=== PATIENT | female | born 1930 | race Caucasian/White ===

== ENCOUNTER 2016-10-14 12:34 | Emergency (ER) | payer OTHER, BC ==
[~2016-10-14] VITALS: Ht 160 cm; Wt 50.0 kg
[~2016-10-14 12:34] MED LIST: ATOR-22 PO; CALCTAB5 PO; METO100T14 PO; POTA20TA16 PO
[2016-10-14 12:36] VITALS: TEMP 36.3; Ht 160 cm; Wt 50.0 kg
--- NOTE | 2016-10-14 14:28 | EMERGENCY ROOM VISIT NOTE ---
History Report prepared by Eddyibe: Pam Philip Under the Supervision of: Dr. Triny Adames M.D. First contact with patient: 14:18 Chief Complaint: RESPIRATORY PROBLEMS Stated Complaint: CARDIAC PT, BREATHING PROBLEMS, SEVERE HERNIA History of Present Illness The patient is an 86 year old female who presents to the Emergency Room with complaints of worsening respiratory problems. She has a history of COPD and complains of increased shortness of breath recently. She uses Oxygen at home, but usually only at night. Her son reports she has a "severe hernia" in her abdomen that has been causing increased pain. She was told by her doctors that she may eventually need surgery for the hernia but nothing has been decided as of yet. She also complains of a headache. The patient denies any vomiting. She does have a history of an abdominal aneurysm in 2009. Source of History: patient, family (son) Onset: [employer] Position: chest Timing: worsening Associated Symptoms: + abdominal pain, + headache, No vomiting Review of Systems See HPI for pertinent positives & negatives. A total of 10 systems reviewed and were otherwise negative. Past Medical & Surgical Medical Problems: (1) Abdom Aortic Aneurysm (2) Anxiety State Nos (3) Atrial Fibrillation (4) Cellulitis (5) CHF exacerbation (6) Congestive Heart Failure Nos (7) COPD (chronic obstructive pulmonary disease) (8) Coron Atheroscler Nos Type Vessel, [place] Or Graft (9) Diverticulosis Colon (W/O Ment Of Hemorrhage) (10) Diverticulosis Colon (W/O Ment Of Hemorrhage) (11) Hypertension Nos (12) Myocardial infarction (13) Oth Atherosclerosis [place] Arteries Extremities (14) Tobacco Use Disorder (15) Tricuspid Valve Disease Surgical Problems: (1) S/P CABG x 3 (2) Tobacco Use Disorder Family History Heart disease Social History Smoking Status: Former Smoker Alcohol Use: none Drug Use: none Marital Status: Housing Status: lives alone Occupation Status: retired Current/Historical Medications Scheduled Ascorbic Acid (Vitamin C), 500 MG PO QPM Aspirin (Aspirin Ec), 81 MG PO QAM Atorvastatin (Lipitor), 20 MG PO HS Calcium (Caltrate), 600 MG PO BID Diltiazem Hcl (Diltiazem Cd), 240 MG PO DAILY Furosemide (Furosemide), 40 MG PO QAM Metoprolol Tartrate (Lopressor) (Lopressor), 100 MG PO BID Multivitamins/Minerals (Mvi With Minerals), 1 TAB PO DAILY Potassium Ext Rel (Klor-Con), 20 MEQ PO DAILY Warfarin Sodium (Coumadin), 2 MG PO UD Scheduled PRN Lorazepam (Lorazepam), 0.5 MG PO HS PRN for Sleep Allergies Coded Allergies: Penicillins (Verified Allergy, Unknown, RASH, 10/14/16) Physical Exam Vital Signs Date Time Temp Pulse Resp B/P Pulse Ox O2 Delivery O2 Flow Rate FiO2 10/14/16 18:08 70 20 140/79 92 Room Air 10/14/16 15:39 77 18 94 10/14/16 15:34 74 18 157/85 95 Room Air 10/14/16 14:24 81 22 92 10/14/16 14:23 81 10/14/16 14:17 163/92 10/14/16 14:04 80 18 154/84 98 10/14/16 12:42 96 Room Air 10/14/16 12:36 36.3 72 18 163/82 96 Room Air Physical Exam Vital signs reviewed. General: Elderly, but well-appearing 86 year old female, in no significant distress. HEENT: No scleral icterus, PERRLA, neck supple. Atraumatic. Cardiovascular: Regular rate and rhythm, no extra sounds. Pulmonary: Clear to auscultation bilaterally, normal work of breathing. Abdomen: Reducible right lower ventral hernia, soft, nontender, nondistended, positive bowel sounds. Musculoskeletal: Atraumatic, no peripheral edema. Neurologic: Patient awake alert and oriented x 3, full strength in all 4 extremities. Cranial nerves 2 through 12 grossly intact. Skin: Warm, dry, no rash Medical Decision & Procedures ER Provider Diagnostic Interpretation: This X-Ray was reviewed and interpreted by myself and the radiologist. CHEST ONE VIEW PORTABLE IMPRESSION: AP portable study. No significant change from the prior study. No acute findings. Electronically signed by: Johan Rollins M.D. 10/14/2016 2:52 PM Laboratory Results 10/14/16 14:26 Red Blood Count 4.03, Mean Corpuscular Volume 103.0, Mean Corpuscular Hemoglobin 34.2, Mean Corpuscular Hemoglobin Concent 33.3, Mean Platelet Volume 10.1, Neutrophils (%) (Auto) 74.2, Lymphocytes (%) (Auto) 12.4, Monocytes (%) ( Auto) 11.8, Eosinophils (%) (Auto) 1.1, Basophils (%) (Auto) 0.1, Neutrophils # (Auto) 6.19, Lymphocytes # (Auto) 1.03, Monocytes # (Auto) 0.98, Eosinophils # ( Auto) 0.09, Basophils # (Auto) 0.01 10/14/16 14:26 Test 10/14/16 14:09 10/14/16 14:26 10/14/16 14:41 Urine Color YELLOW Urine Appearance CLEAR (CLEAR) Urine pH 7.5 (4.5-7.5) Urine Specific [place] 1.004 (1.000-1.030) Urine Protein NEG (NEG) Urine Glucose (UA) NEG (NEG) Urine Ketones NEG (NEG) Urine Occult Blood NEG (NEG) Urine Nitrite NEG (NEG) Urine Bilirubin NEG (NEG) Urine Urobilinogen NEG (NEG) Urine Leukocyte Esterase NEG (NEG) White Blood Count 8.33 K/uL (4.8-10.8) Red Blood Count 4.03 M/uL (4.2-5.4) Hemoglobin 13.8 g/dL (12.0-16.0) Hematocrit 41.5 % (37-47) Mean Corpuscular Volume 103.0 fL (80-100) Mean Corpuscular Hemoglobin 34.2 pg (25-34) Mean Corpuscular Hemoglobin Concent 33.3 g/dl (32-36) Platelet Count 185 K/uL (130-400) Mean Platelet Volume 10.1 fL (7.4-10.4) Neutrophils (%) (Auto) 74.2 % Lymphocytes (%) (Auto) 12.4 % Monocytes (%) (Auto) 11.8 % Eosinophils (%) (Auto) 1.1 % Basophils (%) (Auto) 0.1 % Neutrophils # (Auto) 6.19 K/uL (1.4-6.5) Lymphocytes # (Auto) 1.03 K/uL (1.2-3.4) Monocytes # (Auto) 0.98 K/uL (0.11-0.59) Eosinophils # (Auto) 0.09 K/uL (0-0.5) Basophils # (Auto) 0.01 K/uL (0-0.2) RDW Standard Deviation 54.8 fL (36.4-46.3) RDW Coefficient of Variation 14.5 % (11.5-14.5) Immature Granulocyte % (Auto) 0.4 % Immature Granulocyte # (Auto) 0.03 K/uL (0.00-0.02) Prothrombin Time 21.9 SECONDS (9.0-12.0) Prothromb Time International Ratio 2.0 (0.9-1.1) Activated Partial Thromboplast Time 31.9 SECONDS (21.0-31.0) Partial Thromboplastin Ratio 1.2 Anion Gap 13.0 mmol/L (3-11) Est Creatinine Clear Calc Drug Dose 28.4 ml/min Estimated GFR () 52.3 Estimated GFR (Non- 45.1 BUN/Creatinine Ratio 24.1 (10-20) Calcium Level 9.2 mg/dl (8.5-10.1) Magnesium Level 2.3 mg/dl (1.8-2.4) Total Bilirubin 1.3 mg/dl (0.2-1) Direct Bilirubin 0.5 mg/dl (0-0.2) Aspartate Amino Transf (AST/SGOT) 25 U/L (15-37) Alanine Aminotransferase (ALT/SGPT) 26 U/L (12-78) Alkaline Phosphatase 101 U/L (45-117) Total Creatine Kinase 43 U/L (26-192) Creatine Kinase MB 1.8 ng/ml (0.5-3.6) Creatine Kinase MB Ratio 4.2 (0-3.0) Total Protein 7.8 gm/dl (6.4-8.2) Albumin 3.9 gm/dl (3.4-5.0) Bedside Troponin I 0.020 ng/ml (0-0.045) JP-Qjh-U-Type Natriuretic Peptide 3526 pg/ml (0-1800) Laboratory results per my review. Medications Administered Medications (Trade) Dose Ordered Sig/Arjun Route Start Time Stop Time Status Last Admin Dose Admin Acetaminophen (Tylenol Tab) 650 mg NOW STAT PO 10/14/16 15:36 10/14/16 15:37 DC 10/14/16 16:13 650 MG Furosemide (Lasix Inj) 40 mg NOW STAT IV 10/14/16 17:19 10/14/16 17:21 DC 10/14/16 17:45 40 MG ECG Indication: SOB/dyspnea Rate (beats per minute): 79 Rhythm: atrial fibrillation Findings: no acute ischemic change, left axis deviation, other (inferior infarct) ED Course 1420: Past medical records reviewed. The patient was evaluated in room B9. A complete history and physical examination was performed. 1536: Acetaminophen 650 mg PO. 1719: Lasix 40 mg IV. 1800: I reevaluated the patient. She is feeling much better. I discussed her results and discharge instructions and she verbalized complete understanding and agreement. Medical Decision Differential Diagnoses: CHF, pneumonia, COPD, appendicitis, incarcerated hernia , reducible hernia, constipation and diverticulitis. This patient was evaluated and appeared to be in no significant distress. IV access was obtained and laboratory work was drawn. Chest x-ray was obtained and is negative for acute infiltrate. Patient's BNP is slightly elevated. Given her recent shortness of breath and her use of Lasix, the patient was given 40 mEq of IV Lasix. The remainder of the patient's workup is unrevealing. She complained of a slight headache and was given Tylenol with relief. Patient was also ordered a meal tray for which she did not eat much of. Patient's right lower abdominal hernia was reduced easily. Patient will follow-up with her primary care physician this week and return to the ER for worsening of symptoms or any medical concerns. Impression Primary Impression: CHF exacerbation Additional Impressions: Pulmonary vascular congestion reducible ventral hernia Scribe Attestation The scribe's documentation has been prepared under my direction and personally reviewed by me in its entirety. I confirm that the note above accurately reflects all work, treatment, procedures, and medical decision making performed by me. Departure Information Dispostion Home / Self-Care Referrals Nathaniel Gomez M.D. (PCP) Patient Instructions My [facility] Additional Instructions Diagnosis: CHF exacerbation Continue your diuretic medications as prescribed. Use your oxygen as directed. Wear a hernia belt or supportive underwear to help prevent the hernia bulge. Follow-up with your physician this week if symptoms continue. Return to the ER for worsening of symptoms or any medical concerns. Problem Qualifiers Primary Impression: CHF exacerbation Congestive heart failure type: unspecified congestive heart failure type Qualified Codes: I50.9 - Heart failure, unspecified
[2016-10-14 14:40] LABS: BASO % 0.1 %; BASO ABS # 0.01 K/uL (0-0.2); COMPLETE YES; EOS % 1.1 %; HEMATOCRIT 41.5 % (37-47); IG% 0.4 %; LYMPH % 12.4 %; LYMPH ABS # 1.03 K/uL (1.2-3.4); MEAN CORPUSCULAR HEMOGLOBIN 34.2 pg (25-34); MEAN CORPUSCULAR HGB CONC 33.3 g/dl (32-36); MEAN PLATELET VOLUME 10.1 fL (7.4-10.4); MONO % 11.8 %; NEUT % 74.2 %; PLATELET COUNT 185 K/uL (130-400); RED BLOOD COUNT 4.03 M/uL (4.2-5.4); WHITE BLOOD COUNT 8.33 K/uL (4.8-10.8)
--- NOTE | 2016-10-14 14:53 | DIAGNOSTIC IMAGING REPORT ---
CHEST ONE VIEW PORTABLE CLINICAL HISTORY: Shortness of breath COMPARISON STUDY: 11/17/2015 FINDINGS: The heart is enlarged. There is prominence of the central pulmonary arteries unchanged the prior study. There is no failure. There is no lobar consolidation. There are platelike atelectatic changes the right lung base. Multiple loose bodies project over the right shoulder area[ IMPRESSION: AP portable study. No significant change from the prior study. No acute findings. Electronically signed by: Johan Rollins M.D. 10/14/2016 2:52 PM Dictated Date/Time: 10/14/2016 2:51 PM
[2016-10-14 14:54] LABS: MANUAL MICROSCOPIC REQUIRED? NO; REVIEW REQ? NO; URINE APPEARANCE CLEAR (CLEAR); URINE BILIRUBIN NEG (NEG); URINE COLOR YELLOW; URINE NITRITE NEG (NEG); URINE PH 7.5 (4.5-7.5); URINE SPECIFIC GRAVITY 1.004 (1.000-1.030); UROBILINOGEN NEG (NEG); ZZUR CULT IF INDIC CLEAN CATCH NO
[2016-10-14] MEDS ORDERED: DLTCD/240 PO (14:56)
[2016-10-14] MEDS ORDERED: ASPI81TA28 PO (14:56)
[2016-10-14] MEDS ORDERED: LSX40 PO (14:56)
[2016-10-14 14:57] LABS: POINT OF CARE TROPONIN I 0.02 ng/ml (0-0.045)
[2016-10-14] MEDS ORDERED: ASCO500T3 PO (14:57)
[2016-10-14 15:11] LABS: POTASSIUM 4.3 mmol/L (3.5-5.1)
[2016-10-14 15:20] LABS: MAGNESIUM 2.3 mg/dl (1.8-2.4)
[2016-10-14 15:26] LABS: BUN/CREATININE RATIO 24.1 (10-20); CALCIUM 9.2 mg/dl (8.5-10.1); CKMB/CK RATIO 4.2 (0-3.0); CREATININE 1.1 mg/dl (0.60-1.20)
[2016-10-14] MEDS ORDERED: ACETAMINOPHEN 325 MG TAB PO STA (15:36)
[2016-10-14] MEDS ORDERED: WARF2TAB PO (15:43)
[2016-10-14] MEDS ORDERED: MULT-513 PO (15:43)
[2016-10-14 16:04] LABS: PARTIAL THROMBOPLASTIN RATIO 1.2; PROTHROMBIN TIME (PATIENT) 21.9 SECONDS (9.0-12.0)
[2016-10-14] MEDS ORDERED: FUROSEMIDE 40 MG/4 ML VIAL IV STA (17:19)
[2016-10-14 18:08] VITALS: BP 140/79; PULSE 70; O2SAT 92
[2016-12-05] MEDS ORDERED: ATV5X PO (14:56)
[2017-03-10] MEDS ORDERED: CMD3 PO (13:21)
[2017-03-10] MEDS ORDERED: LSX20 PO (13:21)
[2017-03-10] MEDS ORDERED: PRD20 PO (13:22)
== END 2016-10-14 18:11 | disposition home or self-care (01) ==
LOC: C.EDB 12:35
DX: I50.9 Heart failure, unspecified (principal); R09.89 Other specified symptoms and signs involving the circulatory and respiratory systems; K43.9 Ventral hernia without obstruction or gangrene; F41.9 Anxiety disorder, unspecified; I48.91 Unspecified atrial fibrillation; J44.9 Chronic obstructive pulmonary disease, unspecified; I10 Essential (primary) hypertension; I25.2 Old myocardial infarction; Z87.891 Personal history of nicotine dependence; Z79.82 Long term (current) use of aspirin

== ENCOUNTER → 2016-11-04 | Outpatient (CLI) | payer OTHER, BC ==
[~2016-11-04] MED LIST changes: +ALL100 PO; +ALPR-411 PO; +ASCO500T3 PO; +ASPI81TA28 PO; +ATV5X PO; +CALC-393 PO; +CMD3 PO; +DLTCD/240 PO; +FURO-85 PO; +LSX20 PO; +LSX40 PO; +MULT-506 PO; +MULT-513 PO; +NTRGSL/4 UT; +PRD20 PO; +VNTHFA/IN INH; +WARF2TAB PO; +WARF3TAB PO
--- NOTE | 2016-11-04 17:00 | DIAGNOSTIC IMAGING REPORT ---
ABDOMEN FOR HERNIA CLINICAL HISTORY: Follow-up right inguinal abnormality. Inguinal hernia. COMPARISON STUDY: Right inguinal ultrasound August 29, 2015. FINDINGS: Note was made of a complex right groin abnormality which was predominantly fluid in appearance. This measures 7.1 x 2.6 x 2.7 cm. This appears to represent a complex fluid collection. There is no color flow. This does not appear to represent the finding shown on exam of August 19, 2015. A definite hernia was not identified on this exam. IMPRESSION: Complex right groin fluid collection measured partially 7.1 x 2.6 x 2.7 cm which does not appear to represent the abdomen prior ultrasound. The sonographic appearance is nonspecific. Differential considerations include a hematoma, seroma or abscess. A cystic mass is considered less likely. A hernia sac could also appear similar but is considered less likely. A contrast-enhanced CT of the pelvis to include the groin could be obtained. Electronically signed by: Neal Campos M.D. 11/04/2016 4:58 PM Dictated Date/Time: 11/04/2016 4:54 PM
== END | disposition home or self-care (01) ==
LOC: C.ULTR 16:15
PROVIDERS: ATTEND Internal Medicine
DX: K40.90 Unilateral inguinal hernia, without obstruction or gangrene, not specified as recurrent (principal)

== ENCOUNTER → 2016-11-15 | Outpatient (CLI) | payer OTHER, BC ==
--- NOTE | 2016-11-15 15:56 | DIAGNOSTIC IMAGING REPORT ---
CT SCAN OF THE ABDOMEN AND PELVIS WITHOUT CONTRAST CLINICAL HISTORY: Right inguinal hernia. Possible inguinal mass. COMPARISON STUDY: 01/06/2012 TECHNIQUE: CT scan of the abdomen and pelvis was performed from the lung bases to the proximal femurs. Images are reviewed in the axial, sagittal, and coronal planes. IV contrast was not administered for this examination. CT DOSE: 256.66 mGy.cm FINDINGS: Lower chest: The heart is enlarged. There is a small right pleural effusion. There are is a 27 mm right middle lobe opacity, possibly atelectatic. Liver: There are multiple hepatic cysts including a 7 cm right lobe cyst containing partially calcified septations. Gallbladder: Unremarkable. Spleen: Normal in size and attenuation. Pancreas: No intrinsic pancreatic masses are visualized. Adrenal glands: There are bilateral adrenal gland nodules unchanged the prior study Kidneys: In addition to bilateral renal cysts, there is a 2 cm exophytic right renal mass which exceeds water attenuation and is therefore indeterminate. There is left-sided perinephric stranding. There is a cortical hyperdensity within the left kidney possibly representing a hyperdense cyst. Bowel: There is extensive colonic diverticulosis. There are no acute peridiverticular inflammatory changes. There are no transition zones indicate bowel obstruction. The appendix appears normal. Peritoneum: There is no intraperitoneal free air or abdominal ascites. Vasculature: There are postsurgical changes of an aorto iliac stent graft. There is been interval decrease in the size of the upper [place] abdominal aorta which measures 33 mm. Adenopathy: None. Pelvic viscera: The bladder, and pelvic viscera are unremarkable. Skeletal structures: There is a 7 x 3 x 3 cm right inguinal mass, likely representing a distended iliopsoas bursa. There is also a right hip joint effusion. 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 IMPRESSION: 1. Complex 7 x 3 x 3 cm right inguinal mass, likely representing a distended iliopsoas bursa. There is an associated right hip joint effusion. 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 If further evaluation as deemed clinically necessary, an MRI would be considered the test of choice 2. No evidence of bowel obstruction. No evidence of free air 3. Extensive colonic diverticulosis. No evidence of acute peridiverticular inflammatory change 4. Cardiomegaly and coronary artery calcifications 5. Stable bilateral adrenal masses 6. Small right pleural effusion 7. 26 mm right middle lobe opacity possibly atelectatic 8. Multiple renal lesions including an indeterminate 2 cm exophytic right renal mass. If further evaluation is desired, a dedicated renal CT scan would be considered the test of choice 9. Stable hepatic hypodense lesions. Electronically signed by: Johan Rollins M.D. 11/15/2016 3:55 PM Dictated Date/Time: 11/15/2016 3:44 PM
== END | disposition home or self-care (01) ==
LOC: C.CTS 13:18
PROVIDERS: ATTEND Internal Medicine
DX: K40.90 Unilateral inguinal hernia, without obstruction or gangrene, not specified as recurrent (principal); M25.451 Effusion, right hip; M87.851 Other osteonecrosis, right femur; K57.30 Diverticulosis of large intestine without perforation or abscess without bleeding; I51.7 Cardiomegaly; I25.10 Atherosclerotic heart disease of native coronary artery without angina pectoris; E27.9 Disorder of adrenal gland, unspecified; R91.8 Other nonspecific abnormal finding of lung field; N28.9 Disorder of kidney and ureter, unspecified; K76.9 Liver disease, unspecified

== ENCOUNTER 2016-12-05 15:58 | Inpatient (IN) | payer OTHER, BC ==
[~2016-12-05] VITALS: Ht 157.5 cm; Wt 51.3 kg
[~2016-12-05 15:58] MED LIST changes: -ALL100 PO; -ALPR-411 PO; -CALC-393 PO; -CMD3 PO; -FURO-85 PO; -LSX20 PO; -MULT-506 PO; -NTRGSL/4 UT; -PRD20 PO; -VNTHFA/IN INH; -WARF3TAB PO
[2016-12-05] MEDS ORDERED: CALC-393 PO (18:16)
--- NOTE | 2016-12-05 18:53 | DIAGNOSTIC IMAGING REPORT ---
CHEST ONE VIEW PORTABLE CLINICAL HISTORY: Generalized Weakness mental status change COMPARISON STUDY: 10/14/2016 FINDINGS: Moderate stable cardia megaly. Lungs are considered clear. IMPRESSION: Moderate stable cardiomegaly. Otherwise no acute process Electronically signed by: Sim Lemus M.D. 12/05/2016 6:52 PM Dictated Date/Time: 12/05/2016 6:52 PM
--- NOTE | 2016-12-05 18:56 | DIAGNOSTIC IMAGING REPORT ---
LUMBAR SPINE 2 OR 3 VIEWS CLINICAL HISTORY: low back pain pain COMPARISON STUDY: 04/16/2015 FINDINGS: Arterial stents unchanged in position. Generalized degenerative change of the entire lumbar region. Mild old compression deformities of L1-L2 and L3. No evidence for an acute compression deformity. IMPRESSION: Chronic change. Postoperative vascular change. No acute process. Electronically signed by: Sim Lemus M.D. 12/05/2016 6:55 PM Dictated Date/Time: 12/05/2016 6:54 PM
[2016-12-05] MEDS ORDERED: WARF2TAB PO (18:58)
[2016-12-05 19:30] LABS: BASO % 0.2 %; BASO ABS # 0.02 K/uL (0-0.2); COMPLETE YES; EOS % 2.6 %; HEMATOCRIT 39.3 % (37-47); IG% 0.2 %; LYMPH % 14.5 %; LYMPH ABS # 1.23 K/uL (1.2-3.4); MEAN CELL VOLUME 102.1 fL (80-100); MEAN CORPUSCULAR HEMOGLOBIN 34.5 pg (25-34); MEAN CORPUSCULAR HGB CONC 33.8 g/dl (32-36); MEAN PLATELET VOLUME 10.4 fL (7.4-10.4); MONO % 12.6 %; NEUT % 69.9 %; PLATELET COUNT 201 K/uL (130-400); RED BLOOD COUNT 3.85 M/uL (4.2-5.4); WHITE BLOOD COUNT 8.51 K/uL (4.8-10.8)
[2016-12-05 19:43] LABS: URINE APPEARANCE TURBID (CLEAR); URINE BILIRUBIN NEG (NEG); URINE COLOR YELLOW; URINE NITRITE NEG (NEG); URINE PH 6.5 (4.5-7.5); UROBILINOGEN NEG (NEG); ZZUR CULT IF INDIC CLEAN CATCH YES
[2016-12-05 19:48] LABS: MANUAL MICROSCOPIC REQUIRED? NO; REVIEW REQ? YES
[2016-12-05 20:01] LABS: INR 2.4 (0.9-1.1); PARTIAL THROMBOPLASTIN RATIO 1.4; PROTHROMBIN TIME (PATIENT) 26.9 SECONDS (9.0-12.0)
[2016-12-05 20:05] LABS: BUN/CREATININE RATIO 33.1 (10-20); CALCIUM 9.7 mg/dl (8.5-10.1); CKMB/CK RATIO 2.3 (0-3.0); CREATININE 1.4 mg/dl (0.60-1.20); PHOSPHORUS 3.7 mg/dl (2.5-4.9)
[2016-12-05 20:22] LABS: POTASSIUM 4.3 mmol/L (3.5-5.1)
[2016-12-05] MEDS ORDERED: CEFTRIAXONE SOD INJ 1 GM ADDVIAL IV STA (20:26)
--- NOTE | 2016-12-05 20:28 | DIAGNOSTIC IMAGING REPORT ---
HEAD CT NONCONTRAST CT DOSE: 537.48 mGy.cm HISTORY: Mental status change dizzy on coumadin TECHNIQUE: Multiaxial CT images of the head were performed without the use of intravenous contrast. Comparison: 06/27/2011 Findings: The paranasal sinuses and mastoid air cells are clear. Moderate chronic small vessel change of periventricular and deep white matter regions. Ventricular system is midline. There is no evidence for acute intracranial hemorrhage. There is no midline shift. Impression: Age-related chronic small vessel change. No acute intracranial abnormality. Electronically signed by: Sim Lemus M.D. 12/05/2016 8:26 PM Dictated Date/Time: 12/05/2016 8:25 PM
[2016-12-05 20:32] LABS: MAGNESIUM 2.5 mg/dl (1.8-2.4)
--- NOTE | 2016-12-05 21:46 | EMERGENCY ROOM VISIT NOTE ---
History Report prepared by Lu: Nydia Balbuena Under the Supervision of: Dr. Kayden Parker M.D. First contact with patient: 17:55 Chief Complaint: SWELLING TO EXTREMITY Stated Complaint: GROIN/ABD/BACK PAIN,INOPERABLE HERNIA History of Present Illness The patient is a 86 year old female who presents to the Emergency Room with complaints of back pain that worsened earlier today. 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 The patient's son states that he visited the patient after work today and when he got there, she was hunched over in pain and crying. The patient's son also states that the patient seems to be more confused than usual. He adds that the patient has a right inguinal hernia as well, which is painful with movement. She denies any abdominal pain. She also denies any recent falls or head trauma, along with diarrhea, hematochezia, and burning with urination. The patient's son also adds that the patient's ankles are mildly edematous, which he knows because he measures them daily. The patient is on Coumadin for her history of atrial fibrillation. She was supposed to get her INR checked today, but she decided to come into the ED instead due to her pain. Source of History: patient, family (son) Onset: earlier today Position: back Timing: worsening Associated Symptoms: No abdominal pain, No diarrhea, No hematochezia, No urinary symptoms (burning with urination) Note: bilateral lower extremity edema Review of Systems See HPI for pertinent positives & negatives. A total of 10 systems reviewed and were otherwise negative. Past Medical & Surgical Medical Problems: (1) Abdom Aortic Aneurysm (2) Anxiety State Nos (3) Atrial Fibrillation (4) Cellulitis (5) CHF exacerbation (6) Congestive Heart Failure Nos (7) COPD (chronic obstructive pulmonary disease) (8) Coron Atheroscler Nos Type Vessel, [place] Or Graft (9) Diverticulosis Colon (W/O Ment Of Hemorrhage) (10) Diverticulosis Colon (W/O Ment Of Hemorrhage) (11) Hypertension Nos (12) Myocardial infarction (13) Oth Atherosclerosis [place] Arteries Extremities (14) Tobacco Use Disorder (15) Tricuspid Valve Disease Surgical Problems: (1) S/P CABG x 3 (2) Tobacco Use Disorder Family History Heart disease Social History Smoking Status: Former Smoker Alcohol Use: none Drug Use: none Marital Status: Housing Status: lives alone Occupation Status: retired Current/Historical Medications Scheduled Ascorbic Acid (Vitamin C), 500 MG PO BI Aspirin (Aspirin Ec), 81 MG PO QAM Atorvastatin (Lipitor), 20 MG PO HS Calcium Carbonate (Calcium), 600 MG PO BID Diltiazem Hcl (Diltiazem Cd), 240 MG PO DAILY Furosemide (Furosemide), 40 MG PO QAM Lorazepam (Lorazepam), 0.5 MG PO HS Metoprolol Tartrate (Lopressor) (Lopressor), 100 MG PO BID Multivitamins/Minerals (Mvi With Minerals), 1 TAB PO DAILY Potassium Ext Rel (Klor-Con), 20 MEQ PO DAILY Warfarin Sodium (Coumadin), 2 MG PO UD Warfarin Sodium (Coumadin), 4 MG PO 4XWK Allergies Coded Allergies: Penicillins (Verified Allergy, Unknown, RASH, 10/14/16) Physical Exam Vital Signs Date Time Temp Pulse Resp B/P Pulse Ox O2 Delivery O2 Flow Rate FiO2 12/05/16 23:38 78 18 152/87 95 12/05/16 22:30 70 18 142/67 95 Room Air 12/05/16 20:45 94 20 146/75 92 Room Air 12/05/16 18:59 75 20 147/81 92 Room Air 12/05/16 16:04 36.5 58 18 117/58 95 Room Air Physical Exam GENERAL: Patient is well appearing and in minimal distress. HEENT: No acute trauma, normocephalic atraumatic, mucous membranes moist, no nasal congestion, no scleral icterus. NECK: No stridor, no adenopathy, no meningismus, trachea is midline. LUNGS: No dyspnea. Clear to auscultation and equal bilaterally. No wheeze, no rhonchi. HEART: Regular rate and rhythm. No murmurs, rubs, gallops appreciated. ABDOMEN: Soft, nontender, bowel sounds positive, no masses appreciated, no peritonitis. BACK: Mild back tenderness which is mostly on the right, no midline tenderness, no CVA tenderness EXTREMITIES: Normal motion all extremities, large right inguinal hernia that is nontender and easily reducible, no cyanosis, no edema. NEUROLOGIC: Alert and oriented, no acute motor or sensory deficits, no focal weakness, cranial nerves grossly intact. SKIN: No rash, no jaundice, no diaphoresis. Medical Decision & Procedures ER Provider Diagnostic Interpretation: Radiology results and stated below per my review and radiologist interpretation: CHEST ONE VIEW PORTABLE IMPRESSION: Moderate stable cardiomegaly. Otherwise no acute process Electronically signed by: Sim Lemus M.D. 12/05/2016 6:52 PM Dictated Date/Time: 12/05/2016 6:52 PM LUMBAR SPINE 2 OR 3 VIEWS IMPRESSION: Chronic change. Postoperative vascular change. No acute process. Electronically signed by: Sim Lemus M.D. 12/05/2016 6:55 PM Dictated Date/Time: 12/05/2016 6:[address] NONCONTRAST Impression: Age-related chronic small vessel change. No acute intracranial abnormality. Electronically signed by: Sim Lemus M.D. 12/05/2016 8:26 PM Dictated Date/Time: 12/05/2016 8:25 PM Laboratory Results 12/05/16 19:15 Red Blood Count 3.85, Mean Corpuscular Volume 102.1, Mean Corpuscular Hemoglobin 34.5, Mean Corpuscular Hemoglobin Concent 33.8, Mean Platelet Volume 10.4, Neutrophils (%) (Auto) 69.9, Lymphocytes (%) (Auto) 14.5, Monocytes (%) ( Auto) 12.6, Eosinophils (%) (Auto) 2.6, Basophils (%) (Auto) 0.2, Neutrophils # (Auto) 5.95, Lymphocytes # (Auto) 1.23, Monocytes # (Auto) 1.07, Eosinophils # ( Auto) 0.22, Basophils # (Auto) 0.02 12/05/16 19:15 Test 12/05/16 18:15 12/05/16 19:15 12/05/16 19:22 Urine Color YELLOW Urine Appearance TURBID (CLEAR) Urine pH 6.5 (4.5-7.5) Urine Specific [place] 1.010 (1.000-1.030) Urine Protein 1+ (NEG) Urine Glucose (UA) NEG (NEG) Urine Ketones TRACE (NEG) Urine Occult Blood 2+ (NEG) Urine Nitrite NEG (NEG) Urine Bilirubin NEG (NEG) Urine Urobilinogen NEG (NEG) Urine Leukocyte Esterase LARGE (NEG) Urine WBC (Auto) >30 /hpf (0-5) Urine RBC (Auto) >30 /hpf (0-4) Urine Hyaline Casts (Auto) 1-5 /lpf (0-5) Urine Epithelial Cells (Auto) 10-20 /lpf (0-5) Urine Bacteria (Auto) NEG (NEG) Urine Yeast (Auto) (NONE PRSENT) White Blood Count 8.51 K/uL (4.8-10.8) Red Blood Count 3.85 M/uL (4.2-5.4) Hemoglobin 13.3 g/dL (12.0-16.0) Hematocrit 39.3 % (37-47) Mean Corpuscular Volume 102.1 fL (80-100) Mean Corpuscular Hemoglobin 34.5 pg (25-34) Mean Corpuscular Hemoglobin Concent 33.8 g/dl (32-36) Platelet Count 201 K/uL (130-400) Mean Platelet Volume 10.4 fL (7.4-10.4) Neutrophils (%) (Auto) 69.9 % Lymphocytes (%) (Auto) 14.5 % Monocytes (%) (Auto) 12.6 % Eosinophils (%) (Auto) 2.6 % Basophils (%) (Auto) 0.2 % Neutrophils # (Auto) 5.95 K/uL (1.4-6.5) Lymphocytes # (Auto) 1.23 K/uL (1.2-3.4) Monocytes # (Auto) 1.07 K/uL (0.11-0.59) Eosinophils # (Auto) 0.22 K/uL (0-0.5) Basophils # (Auto) 0.02 K/uL (0-0.2) RDW Standard Deviation 53.6 fL (36.4-46.3) RDW Coefficient of Variation 14.4 % (11.5-14.5) Immature Granulocyte % (Auto) 0.2 % Immature Granulocyte # (Auto) 0.02 K/uL (0.00-0.02) Prothrombin Time 26.9 SECONDS (9.0-12.0) Prothromb Time International Ratio 2.4 (0.9-1.1) Activated Partial Thromboplast Time 35.6 SECONDS (21.0-31.0) Partial Thromboplastin Ratio 1.4 Anion Gap 11.0 mmol/L (3-11) Est Creatinine Clear Calc Drug Dose 21.9 ml/min Estimated GFR () 39.1 Estimated GFR (Non- 33.7 BUN/Creatinine Ratio 33.1 (10-20) Calcium Level 9.7 mg/dl (8.5-10.1) Phosphorus Level 3.7 mg/dl (2.5-4.9) Magnesium Level 2.5 mg/dl (1.8-2.4) Total Bilirubin 0.9 mg/dl (0.2-1) Direct Bilirubin 0.3 mg/dl (0-0.2) Aspartate Amino Transf (AST/SGOT) 28 U/L (15-37) Alanine Aminotransferase (ALT/SGPT) 22 U/L (12-78) Alkaline Phosphatase 107 U/L (45-117) Total Creatine Kinase 56 U/L (26-192) Creatine Kinase MB 1.3 ng/ml (0.5-3.6) Creatine Kinase MB Ratio 2.3 (0-3.0) Troponin I 0.055 ng/ml (0-0.045) Total Protein 7.7 gm/dl (6.4-8.2) Albumin 3.8 gm/dl (3.4-5.0) Lipase 275 U/L (73-393) Bedside Lactic Acid Venous 1.60 mmol/L (0.90-1.70) Laboratory results as reviewed by me. Medications Administered Medications (Trade) Dose Ordered Sig/Arjun Route Start Time Stop Time Status Last Admin Dose Admin Ceftriaxone Sodium (Rocephin Inj) 1 gm NOW STAT IV 12/05/16 20:26 12/05/16 20:27 DC 12/05/16 20:42 1 GM ECG Indication: back/shoulder pain Rate (beats per minute): 71 Rhythm: atrial fibrillation Findings: no acute ischemic change, other ED Course 1757: The patient was evaluated in room A3. A complete history and physical exam was performed. 2025: Ordered Rocephin Inj 1 gm IV 2033: Upon reevaluation, the patient is resting comfortably. Discussed results and treatment plan with the patient. She verbalized understanding and agreement with the treatment plan. The patient will be evaluated for further management. 2132: Discussed the patient's case with Dr. Swapna Parker [facility] [place]. The patient will be evaluated for further treatment and disposition. Medical Decision Differential: Sepsis, Infectious (UTI/Pneumonia/Meningitis/etc), Metabolic/ Electrolyte Abnormality, Cardiac, Hepatic, Endocrine, Toxicologic, Neurologic, amongst other pathologies entertained. 86 yr old female arrives with generalized weakness, lower abdominal pain radiating to back and per son increased confusion last few days. Easily reducible hernia inguinal without evidence of incarceration nor overlying infection/erythema nor tenderness. She has UTI which likely is cause of confusion and discomfort. Old compression fractures without new findings on lumbar imaging. CXR without acute infection. CT head negative. Labs note elevated Trop with wnl just last month. Likely infectious in nature but with UTI and confusion will need to come in for further rule out. Stable and in no distress throughout most of stay. No evidence ACS on EKG. Consults Time Called: 2035 Consulting Physician: Dr. Swapna MARTINZE Returned Call: 2132 Discussed the patient's case with Dr. Swapna MARTINEZ. The patient will be evaluated for further treatment and disposition. Impression Primary Impression: UTI (urinary tract infection) Additional Impressions: Generalized weakness Elevated troponin Confusion Scribe Attestation The scribe's documentation has been prepared under my direction and personally reviewed by me in its entirety. I confirm that the note above accurately reflects all work, treatment, procedures, and medical decision making performed by me. Departure Information Dispostion Being Evaluated By Hospitalist Referrals Pro,Nathaniel Liu M.D. (PCP) Patient Instructions My [facility] Problem Qualifiers Primary Impression: UTI (urinary tract infection) Urinary tract infection type: site unspecified Hematuria presence: with hematuria Qualified Codes: N39.0 - Urinary tract infection, site not specified ; R31.9 - Hematuria, unspecified
--- NOTE | 2016-12-05 22:11 | History and Physical ---
History & Physical Date & Time of Service: Dec 05, 2016 at 22:12 Chief Complaint: Groin/Abd/Back Pain,Inoperable Hernia Primary Care Physician: Nathaniel Gomez M.D. History of Present Illness Source: patient This is an 86 y/o F who presents to the ED due to having a panic attack. Her son was not in the room to confirm this history as it does seem to be different to what was told to the ED physician. She says that she came here because she was having a panic attack. However, upon further questioning, she does report that she had some right sided back pain and right groin pain since yesterday. She denies urinary symptoms. The patient is intermittently and pleasantly confused. Denies chest pain, shortness of breath, palpitations, fevers, chills, nausea, vomiting, diarrhea, headaches, melena, hematuria. Past Medical/Surgical History Medical Problems: (1) Abdom Aortic Aneurysm Status: Resolved (2) Atrial Fibrillation Status: Resolved (3) COPD (chronic obstructive pulmonary disease) Status: Chronic (4) Myocardial infarction Status: Resolved Surgical Problems: (1) S/P CABG x 3 Status: Resolved Family History Heart disease Social History Smoking Status: Former Smoker Alcohol Use: occasionally Drug Use: none Marital Status: Housing status: lives alone Occupational Status: retired Immunizations History of Influenza Vaccine: Yes History of Tetanus Vaccine?: Yes History of Pneumococcal: Yes Pneumococcal Date: Jun 11, 2010 History of Hepatitis B Vaccine: No Multi-Drug Resistant Organisms History of MDRO: No Allergies Coded Allergies: Penicillins (Verified Allergy, Unknown, RASH, 10/14/16) Home Medications Scheduled Ascorbic Acid (Vitamin C), 500 MG PO BI Aspirin (Aspirin Ec), 81 MG PO QAM Atorvastatin (Lipitor), 20 MG PO HS Calcium Carbonate (Calcium), 600 MG PO BID Diltiazem Hcl (Diltiazem Cd), 240 MG PO DAILY Furosemide (Furosemide), 40 MG PO QAM Lorazepam (Lorazepam), 0.5 MG PO HS Metoprolol Tartrate (Lopressor) (Lopressor), 100 MG PO BID Multivitamins/Minerals (Mvi With Minerals), 1 TAB PO DAILY Potassium Ext Rel (Klor-Con), 20 MEQ PO DAILY Warfarin Sodium (Coumadin), 2 MG PO UD Warfarin Sodium (Coumadin), 4 MG PO 4XWK Review of Systems Constitutional: No chills, No fatigue, No fever, No sweats, No weakness Respiratory: No cough, No dyspnea at rest, No dyspnea on exertion, No shortness of breath, No sputum, No wheezing Cardiovascular: No chest pain Abdomen: No diarrhea, No nausea, No pain, No vomiting Musculoskeletal: + problem reported (right lower back pain) Genitourinary - Female: No dysuria, No urinary frequency, No urinary incontinence, No urinary urgency Physical Exam Vital Signs Date Time Temp Pulse Resp B/P Pulse Ox O2 Delivery O2 Flow Rate FiO2 12/05/16 20:45 94 20 146/75 92 Room Air 12/05/16 18:59 75 20 147/81 92 Room Air 12/05/16 16:04 36.5 58 18 117/58 95 Room Air General Appearance: no apparent distress Eyes: PERRL, EOMI ENT: hearing grossly normal Neck: supple, no adenopathy, thyroid normal Respiratory/Chest: lungs clear, normal breath sounds, no respiratory distress Cardiovascular: regular rate, rhythm, + pertinent finding (trace edema) Abdomen/GI: normal bowel sounds, non tender, soft Back: no CVA tenderness Extremities/Musculoskelatal: no calf tenderness 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, no motor/sensory deficits, alert, + disoriented (seems somewhat confused but is oriented to person, but not place or time) Diagnostics Laboratory Results Results Past 24 Hours Test 12/05/16 18:15 12/05/16 19:15 12/05/16 19:22 Range/Units Urine Color YELLOW Urine Appearance TURBID CLEAR Urine pH 6.5 4.5-7.5 Urine Specific [place] 1.010 1.000-1.030 Urine Protein 1+ NEG Urine Glucose (UA) NEG NEG Urine Ketones TRACE NEG Urine Occult Blood 2+ NEG Urine Nitrite NEG NEG Urine Bilirubin NEG NEG Urine Urobilinogen NEG NEG Urine Leukocyte Esterase LARGE NEG Urine WBC (Auto) >30 0-5 /hpf Urine RBC (Auto) >30 0-4 /hpf Urine Hyaline Casts (Auto) 1-5 0-5 /lpf Urine Epithelial Cells (Auto) 10-20 0-5 /lpf Urine Bacteria (Auto) NEG NEG Urine Yeast (Auto) NONE PRSENT White Blood Count 8.51 4.8-10.8 K/uL Red Blood Count 3.85 4.2-5.4 M/uL Hemoglobin 13.3 12.0-16.0 g/dL Hematocrit 39.3 37-47 % Mean Corpuscular Volume 102.1 80-100 fL Mean Corpuscular Hemoglobin 34.5 25-34 pg Mean Corpuscular Hemoglobin Concent 33.8 32-36 g/dl Platelet Count 201 130-400 K/uL Mean Platelet Volume 10.4 7.4-10.4 fL Neutrophils (%) (Auto) 69.9 % Lymphocytes (%) (Auto) 14.5 % Monocytes (%) (Auto) 12.6 % Eosinophils (%) (Auto) 2.6 % Basophils (%) (Auto) 0.2 % Neutrophils # (Auto) 5.95 1.4-6.5 K/uL Lymphocytes # (Auto) 1.23 1.2-3.4 K/uL Monocytes # (Auto) 1.07 0.11-0.59 K/uL Eosinophils # (Auto) 0.22 0-0.5 K/uL Basophils # (Auto) 0.02 0-0.2 K/uL RDW Standard Deviation 53.6 36.4-46.3 fL RDW Coefficient of Variation 14.4 11.5-14.5 % Immature Granulocyte % (Auto) 0.2 % Immature Granulocyte # (Auto) 0.02 0.00-0.02 K/uL Prothrombin Time 26.9 9.0-12.0 SECONDS Prothromb Time International Ratio 2.4 0.9-1.1 Activated Partial Thromboplast Time 35.6 21.0-31.0 SECONDS Partial Thromboplastin Ratio 1.4 Sodium Level 141 136-145 mmol/L Potassium Level 4.3 3.5-5.1 mmol/L Chloride Level 101 98-107 mmol/L Carbon Dioxide Level 28 21-32 mmol/L Anion Gap 11.0 3-11 mmol/L Blood Urea Nitrogen 46 7-18 mg/dl Creatinine 1.40 0.60-1.20 mg/dl Est Creatinine Clear Calc Drug Dose 21.9 ml/min Estimated GFR () 39.1 Estimated GFR (Non- 33.7 BUN/Creatinine Ratio 33.1 10-20 Random Glucose 96 70-99 mg/dl Calcium Level 9.7 8.5-10.1 mg/dl Phosphorus Level 3.7 2.5-4.9 mg/dl Magnesium Level 2.5 1.8-2.4 mg/dl Total Bilirubin 0.9 0.2-1 mg/dl Direct Bilirubin 0.3 0-0.2 mg/dl Aspartate Amino Transf (AST/SGOT) 28 15-37 U/L Alanine Aminotransferase (ALT/SGPT) 22 12-78 U/L Alkaline Phosphatase 107 45-117 U/L Total Creatine Kinase 56 26-192 U/L Creatine Kinase MB 1.3 0.5-3.6 ng/ml Creatine Kinase MB Ratio 2.3 0-3.0 Troponin I 0.055 0-0.045 ng/ml Total Protein 7.7 6.4-8.2 gm/dl Albumin 3.8 3.4-5.0 gm/dl Lipase 275 73-393 U/L Bedside Lactic Acid Venous 1.60 0.90-1.70 mmol/L Microbiology Results 12/05/16 Urine Culture, Received Pending Impression Assessment and Plan This is an 86 y/o F who presents with back pain, groin pain and a panic attack. Though it seems that patient might be slightly confused and possibly from her UTI. No evidence of ACS at this time. AMS likely 2/2 UTI UC culture pending Rocephin Head CT negative Elevated troponin Seems to be at Baseline and not unusual for being in AfIB- demand continue to trend x 3 patient is asymptomatic otherwise EKG with no new ST changes Will Get an Echo Afib Therapeutic, Continue Coumadin Daily INR Continue Diltiazem Diastolic CHF- compensated Continue Furosemide, Lopressor Xray with stable cardiomegaly DVT proph Coumadin VTE Prophylaxis Given or contraindicated: Warfarin (Coumadin) Assessment and Plan Attending Addendum: I have physically seen and examined this patient, have directed their medical care, have supervised the medical residents activities, and agree with the H&P as noted above, with the following changes: The patient is awake, well-developed and adequately nourished, alert and oriented 3, normocephalic and atraumatic, lying in bed and in no acute distress. HEENT--PERRL, EOMI, mucous membranes and oropharynx dry. Neck--supple, no JVD or bruits, thyroid normal, trachea midline, no adenopathy. Heart--normal S1 and S2, no extra beats, no murmurs, rubs or gallops. Lungs--clear bilaterally with good air movement, no respiratory distress, no accessory muscle use. Abdomen--normal bowel sounds and soft, nontender and nondistended, no hernias or masses, no organomegaly. Extremities--no cyanosis, clubbing or edema. There are good distal pulses b/l. Dermatologic--normal skin turgor, normal color, warm and dry, no abnormal lymph nodes, no rash. Neurologic--cranial nerves II through XII grossly intact, motor and sensory examination normal. Rheumatologic--normal range of motion, nontender, muscles and joints. Psychiatric--normal affect. Assessment and Plan: UTI/altered mental status--place on ceftriaxone 1 g IV daily, and follow urine culture and sensitivity results. Atrial fibrillation/hypertension/diastolic CHF/increased troponin--admit to the telemetry unit for serial cardiac enzymes, cardiac rhythm monitoring and a 2-D echocardiogram with Dopplers. Continue diltiazem, Lopressor, furosemide and Coumadin at current doses.
[2016-12-05] MEDS ORDERED: MAGNESIUM HYDROXIDE SUSP 30 ML UDC PO PRN (23:15)
[2016-12-05] MEDS ORDERED: ONDANSETRON INJ 2 MG/ML 2 ML VIAL IV PRN (23:15)
[2016-12-05] MEDS ORDERED: ALUMINUM/MAGNESIUM/SIMETH (MAALOX MAX) 30 ML UDC PO PRN (23:15)
[2016-12-05] MEDS ORDERED: ENOXAPARIN 40 MG/0.4 ML SYR SC SCH (23:15)
[2016-12-05] MEDS ORDERED: POLYETHYLENE (MIRALAX) 17 GM PACK PO PRN (23:15)
[2016-12-05] MEDS ORDERED: NITROGLYCERIN 0.4 MG SL PER TAB CHARGE SL PRN (23:15)
[2016-12-05 23:45] VITALS: BP 166/86; PULSE 79; TEMP 36.5; O2SAT 95; Ht 157.5 cm; Wt 51.3 kg
[2016-12-06] MEDS: SODIUM CHLORIDE 0.9% 1000ML 1,000 ML IV SCH ×2 (00:51→14:21)
[2016-12-06] MEDS ORDERED: HydrALAZINE HCL 20 MG/ML VIAL IV. PRN (02:45)
[2016-12-06 03:05] VITALS: BP 129/73; PULSE 76; TEMP 36.3; O2SAT 92
[2016-12-06 07:52] LABS: INR 2.1 (0.9-1.1); PROTHROMBIN TIME (PATIENT) 23.7 SECONDS (9.0-12.0)
[2016-12-06 07:59] LABS: BLOOD UREA NITROGEN 34 mg/dl (7-18); BUN/CREATININE RATIO 35.1 (10-20); CALCIUM 9.1 mg/dl (8.5-10.1); CARBON DIOXIDE 29 mmol/L (21-32); CHLORIDE 104 mmol/L (98-107); CREATININE 0.96 mg/dl (0.60-1.20); GLUCOSE 95 mg/dl (70-99); SODIUM 143 mmol/L (136-145)
[2016-12-06 08:02] VITALS: BP 187/88; PULSE 91; TEMP 36.7; O2SAT 90
[2016-12-06] MEDS: CEROVITE ADV FORMULA TAB PO SCH (08:04)
[2016-12-06] MEDS: DILTIAZEM HCL 240 MG CAPCR PO SCH (08:04)
[2016-12-06] MEDS: FUROSEMIDE 40 MG TAB PO SCH (08:04)
[2016-12-06] MEDS: ASPIRIN 81 MG ECTAB PO SCH (08:04)
[2016-12-06] MEDS: POTASSIUM CHLORIDE 20 MEQ TABCR PO SCH ×2 (08:05→09:44)
[2016-12-06] MEDS ORDERED: METOPROLOL TARTRATE 100 MG TAB PO SCH (09:00)
[2016-12-06] MEDS: ACETAMINOPHEN 325 MG TAB PO PRN (09:49)
--- NOTE | 2016-12-06 10:48 | Progress Note ---
Subjective Date of Service: Dec 06, 2016. Subjective Pt evaluation today including: conversation w/ patient, conversation w/ family , physical exam, chart review SOB with min. exertion (hx of copd and on home oxygen). No CP. Problem List Medical Problems: (1) Atrial fibrillation with RVR Status: Acute (2) Confusion Status: Acute (3) Elevated troponin Status: Acute (4) Elevated troponin Status: Acute (5) Generalized weakness Status: Acute (6) Lower extremity edema Status: Acute (7) Pedal edema Status: Acute (8) Pulmonary vascular congestion Status: Acute (9) UTI (urinary tract infection) Status: Acute Objective Vital Signs Date Time Temp Pulse Resp B/P Pulse Ox O2 Delivery O2 Flow Rate FiO2 12/06/16 08:02 36.7 91 16 187/88 90 Room Air 12/06/16 08:00 Nasal Cannula 4.0 12/06/16 04:00 Room Air 12/06/16 03:05 36.3 76 18 129/73 92 Room Air 12/05/16 23:45 36.5 79 20 166/86 95 Room Air 12/05/16 23:38 78 18 152/87 95 12/05/16 22:30 70 18 142/67 95 Room Air 12/05/16 20:45 94 20 146/75 92 Room Air 12/05/16 18:59 75 20 147/81 92 Room Air 12/05/16 16:04 36.5 58 18 117/58 95 Room Air Physical Exam General Appearance: WD/WN, no apparent distress Eyes: normal inspection, PERRL, EOMI ENT: normal ENT inspection Neck: supple, no adenopathy, thyroid normal, no JVD Respiratory/Chest: + decreased breath sounds, + wheezing Cardiovascular: no gallop, no JVD, no murmur, + irregularly irregular Abdomen: normal bowel sounds, non tender, soft Extremities: normal range of motion 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, alert, normal mood/affect, oriented x 3 Skin: normal color Laboratory Results Last 24 Hours Test 12/05/16 18:15 12/05/16 19:15 12/05/16 19:22 12/06/16 01:00 Urine Color YELLOW Urine Appearance TURBID Urine pH 6.5 Urine Specific [place] 1.010 Urine Protein 1+ Urine Glucose (UA) NEG Urine Ketones TRACE Urine Occult Blood 2+ Urine Nitrite NEG Urine Bilirubin NEG Urine Urobilinogen NEG Urine Leukocyte Esterase LARGE Urine WBC (Auto) >30 /hpf Urine RBC (Auto) >30 /hpf Urine Hyaline Casts (Auto) 1-5 /lpf Urine Epithelial Cells (Auto) 10-20 /lpf Urine Bacteria (Auto) NEG Urine Yeast (Auto) White Blood Count 8.51 K/uL Red Blood Count 3.85 M/uL Hemoglobin 13.3 g/dL Hematocrit 39.3 % Mean Corpuscular Volume 102.1 fL Mean Corpuscular Hemoglobin 34.5 pg Mean Corpuscular Hemoglobin Concent 33.8 g/dl Platelet Count 201 K/uL Mean Platelet Volume 10.4 fL Neutrophils (%) (Auto) 69.9 % Lymphocytes (%) (Auto) 14.5 % Monocytes (%) (Auto) 12.6 % Eosinophils (%) (Auto) 2.6 % Basophils (%) (Auto) 0.2 % Neutrophils # (Auto) 5.95 K/uL Lymphocytes # (Auto) 1.23 K/uL Monocytes # (Auto) 1.07 K/uL Eosinophils # (Auto) 0.22 K/uL Basophils # (Auto) 0.02 K/uL RDW Standard Deviation 53.6 fL RDW Coefficient of Variation 14.4 % Immature Granulocyte % (Auto) 0.2 % Immature Granulocyte # (Auto) 0.02 K/uL Prothrombin Time 26.9 SECONDS Prothromb Time International Ratio 2.4 Activated Partial Thromboplast Time 35.6 SECONDS Partial Thromboplastin Ratio 1.4 Sodium Level 141 mmol/L Potassium Level 4.3 mmol/L Chloride Level 101 mmol/L Carbon Dioxide Level 28 mmol/L Anion Gap 11.0 mmol/L Blood Urea Nitrogen 46 mg/dl Creatinine 1.40 mg/dl Est Creatinine Clear Calc Drug Dose 21.9 ml/min Estimated GFR () 39.1 Estimated GFR (Non- 33.7 BUN/Creatinine Ratio 33.1 Random Glucose 96 mg/dl Calcium Level 9.7 mg/dl Phosphorus Level 3.7 mg/dl Magnesium Level 2.5 mg/dl Total Bilirubin 0.9 mg/dl Direct Bilirubin 0.3 mg/dl Aspartate Amino Transf (AST/SGOT) 28 U/L Alanine Aminotransferase (ALT/SGPT) 22 U/L Alkaline Phosphatase 107 U/L Total Creatine Kinase 56 U/L Creatine Kinase MB 1.3 ng/ml Creatine Kinase MB Ratio 2.3 Troponin I 0.055 ng/ml 0.077 ng/ml Total Protein 7.7 gm/dl Albumin 3.8 gm/dl Lipase 275 U/L Bedside Lactic Acid Venous 1.60 mmol/L Test 12/06/16 06:54 12/06/16 08:48 Prothrombin Time 23.7 SECONDS Prothromb Time International Ratio 2.1 Sodium Level 143 mmol/L Potassium Level mmol/L 3.5 mmol/L Chloride Level 104 mmol/L Carbon Dioxide Level 29 mmol/L Anion Gap 10.0 mmol/L Blood Urea Nitrogen 34 mg/dl Creatinine 0.96 mg/dl Est Creatinine Clear Calc Drug Dose 32.2 ml/min Estimated GFR () 61.6 Estimated GFR (Non- 53.2 BUN/Creatinine Ratio 35.1 Random Glucose 95 mg/dl Calcium Level 9.1 mg/dl Troponin I 0.096 ng/ml Assessment and Plan AMS likely 2/2 UTI Rocephin can be stopped. Urine cx is neg. Head CT negative Elevated troponin, Hx of CAD s/p CABG. Seems to be at Baseline and not unusual for being in AfIB- demand continue to trend x 3 patient is asymptomatic otherwise EKG with no new ST changes Will Get an Echo Afib Therapeutic, Continue Coumadin Daily INR Continue Diltiazem Diastolic CHF- compensated Continue Furosemide, Lopressor Xray with stable cardiomegaly DVT proph Coumadin
[2016-12-06] MEDS ORDERED: NURSING VERBAL MED ORDER ONE (11:15)
[2016-12-06] MEDS ORDERED: ALPRAZOLAM 0.5 MG TAB PO SCH (11:30)
[2016-12-06 11:43] VITALS: BP 107/74; PULSE 69; TEMP 36.2; O2SAT 100
--- NOTE | 2016-12-06 12:15 | ECHOCARDIOGRAM REPORT ---
*NOTICE TO RECEIVING CONSTITUTION PARTY AGENCY This information is strictly Confidential and protected under [place] law. [place] law prohibits you from making any further disclosure of this information unless further disclosure is expressly permitted by the written consent of the person to whom it pertains or is authorized by law. A general authorization for the release of medical or other information is not sufficient for this purpose. Hospital accepts no responsibility if the information is made available to any other person, INCLUDING THE PATIENT. Interpretation Summary * Name: JULIANA NAVARRO Study Date: 12/06/2016 07:07 AM BP: 129/73 mmHg * Patient Location: 2T\S\E219\S\1 HR: 76 * : 1930 (M/d/yyy) Gender: Female Height: 62 in * Age: 86 yrs Ethnicity: CA Weight: 108 lb * Ordering Physician: Pamela Mueller * Referring Physician: Self, Referred * Performed By: Cheryl Velasquez RDCS * * Reason For Study: AFIB, CHF * BSA: 1.5 m2 * History: AFIB, CHF * -- Conclusions -- * There is moderate asymmetric left ventricular hypertrophy. * Left ventricular systolic function is low normal. * Diastolic dysfunction, moderate * The left atrium is severely dilated. * The right atrium is severely dilated. * Calcified coaptation of the leaflets with mild prolapse of the anterior leaflet. * There is moderate to severe tricuspid regurgitation. * Right ventricular systolic pressure is elevated at 40-50mmHg. * There is moderate mitral regurgitation. * Minimal change from an exam performed in 10/2015 Procedure Details * A complete two-dimensional transthoracic echocardiogram was performed (2D, M-mode, Doppler and color flow Doppler). Left Ventricle * The left ventricle is normal in size. * There is moderate asymmetric left ventricular hypertrophy. * Ejection Fraction = 50-55%. * Left ventricular systolic function is low normal. * Diastolic dysfunction, moderate Right Ventricle * The right ventricle is normal in size and function. Atria * The left atrium is severely dilated. * The right atrium is severely dilated. Mitral Valve * Calcified coaptation of the leaflets with mild prolapse of the anterior leaflet. * Small mobile, echodense lesion on the anterior leaflet, likely sclerosis. No change from prior study. * There is moderate mitral regurgitation. Tricuspid Valve * The tricuspid valve is not well visualized, but is grossly normal. * There is moderate to severe tricuspid regurgitation. * Right ventricular systolic pressure is elevated at 40-50mmHg. Aortic Valve * The aortic valve is normal in structure and function. * No hemodynamically significant valvular aortic stenosis. * There is no significant aortic regurgitation. Great Vessels * The aortic root and proximal ascending aorta are normal sized. Pericardium/Pleural * There is no pericardial effusion. MMode 2D Measurements and Calculations IVSd 1.2 cm IVSs 1.7 cm LVIDd 4.0 cm LVIDs 3.0 cm LVPWd 1.9 cm LVPWs 2.1 cm IVS/LVPW 0.64 FS 25.6 % EDV(Teich) 71.8 ml ESV(Teich) 35.3 ml EF(Teich) 50.9 % EDV(cubed) 66.1 ml ESV(cubed) 27.3 ml EF(cubed) 58.8 % % IVS thick 35.4 % % LVPW thick 7.5 % LV mass(C)d 255.6 grams LV mass(C)dI 173.8 grams/m\S\2 LV mass(C)s 233.0 grams LV mass(C)sI 158.4 grams/m\S\2 SV(Teich) 36.5 ml SI(Teich) 24.8 ml/m\S\2 SV(cubed) 38.8 ml SI(cubed) 26.4 ml/m\S\2 Ao root diam 2.9 cm Ao root area 6.4 cm\S\2 LA dimension 4.9 cm LA/Ao 1.7 LVAd ap4 25.3 cm\S\2 LVLd ap4 7.4 cm EDV(MOD-sp4) 73.7 ml EDV(sp4-el) 73.3 ml LVAs ap4 16.5 cm\S\2 LVLs ap4 6.7 cm ESV(MOD-sp4) 36.8 ml ESV(sp4-el) 34.7 ml EF(MOD-sp4) 50.0 % EF(sp4-el) 52.6 % LVAd ap2 23.7 cm\S\2 LVLd ap2 6.9 cm EDV(MOD-sp2) 68.1 ml EDV(sp2-el) 69.1 ml LVAs ap2 14.9 cm\S\2 LVLs ap2 5.6 cm ESV(MOD-sp2) 35.4 ml ESV(sp2-el) 33.7 ml EF(MOD-sp2) 48.0 % EF(sp2-el) 51.3 % LVLd %diff -7.73 % EDV(MOD-bp) 70.8 ml LVLs %diff -18.75 % ESV(MOD-bp) 37.7 ml EF(MOD-bp) 46.8 % SV(MOD-sp4) 36.8 ml SI(MOD-sp4) 25.0 ml/m\S\2 SV(MOD-sp2) 32.7 ml SI(MOD-sp2) 22.3 ml/m\S\2 SV(MOD-bp) 33.2 ml SI(MOD-bp) 22.6 ml/m\S\2 SV(sp4-el) 38.5 ml SI(sp4-el) 26.2 ml/m\S\2 SV(sp2-el) 35.5 ml SI(sp2-el) 24.1 ml/m\S\2 Doppler Measurements and Calculations MV E max radha 152.4 cm/sec MV A max radha 56.3 cm/sec MV E/A 2.7 MV dec time 0.14 sec Ao V2 max 150.8 cm/sec Ao max PG 9.1 mmHg Ao max PG (full) 7.2 mmHg LV V1 max PG 1.9 mmHg LV V1 max 69.2 cm/sec MR max radha 646.1 cm/sec MR max PG 167.0 mmHg TR max radha 292.6 cm/sec
[2016-12-06] MEDS ORDERED: WARFARIN SOD 4 MG TAB PO SCH (16:00)
[2016-12-06 16:09] VITALS: BP 133/72; PULSE 65; TEMP 36.8; O2SAT 95
[2016-12-06 19:12] VITALS: BP 153/72; PULSE 85; TEMP 36.2; O2SAT 96
[2016-12-06] MEDS ORDERED: CEFTRIAXONE SOD INJ 1 GM in DEXTROSE 5% ADD-VANTAGE 50ML 50 ML IV SCH (21:00)
[2016-12-06] MEDS: LORAZEPAM 0.5 MG TAB PO SCH (21:54)
[2016-12-06] MEDS: ATORVASTATIN 20 MG TAB PO SCH (21:54)
[2016-12-06] MEDS: METOPROLOL TARTRATE 50 MG TAB PO SCH (21:54)
[2016-12-07] VITALS: BP 153/67; PULSE 82; TEMP 36.3; O2SAT 99
[2016-12-07] MEDS: SODIUM CHLORIDE 0.9% 1000ML 1,000 ML IV SCH ×2 (03:07→15:13)
[2016-12-07 03:52] VITALS: BP 146/72; PULSE 88; TEMP 36.5; O2SAT 98
--- NOTE | 2016-12-07 06:19 | Clinical Documentation Query ---
MISAEL Sandoval : CLINICAL DOCUMENTATION QUERIES QUERY 1 OF 2 Patient is an 85 year old female admitted for evaluation and treatment of "AMS likely 2/2 UTI". Urine culture is pending. CT scan of the head negative for acute process. Altered mental status is non-specific and lacks the severity associated with the clinical diagnosis of encephalopathy. AMS is in fact the hallmark symptom of encephalopathy. As appropriate, consider documentation as suggested below as this directly impacts DRG assignment. Thank you. In your clinical opinion is this patient being managed for: ( x ) Metabolic encephalopathy secondary to UTI ( ) Other explanation of clinical findings (Please Explain) ( ) Unable to determine (Please Define) ( ) Need to Discuss ( ) Not Agree The medical record reflects the following clinical findings, treatment, and risk factors. Clinical Indicators: AMS in the setting of acute infection Treatment: CT scan of the head, urine culture, IV antibiotics Risk Factors: Age, infection QUERY 2 OF 2 Progress note makes notation of COPD and home oxygen use. Oxygen not appreciated on medication reconciliation but historical EMR documentation (prior H&P) does make note of continuous supplemental oxygen utilization. As appropriate, consider documentation as suggested below in order to capture this importance clinical circumstance. In your clinical opinion is this patient being managed for: (x ) Chronic hypoxic respiratory failure ( ) Other explanation of clinical findings (Please Explain) ( ) Unable to determine (Please Define) ( ) Need to Discuss ( ) Not Agree The medical record reflects the following clinical findings, treatment, and risk factors. Clinical Indicators: As above Treatment: Ongoing oxygen supplementation Risk Factors: COPD Please clarify and document your clinical opinion in the progress notes and discharge summary. Terms such as "probable", "suspected", "likely", "questionable", "possible", or "still to be ruled out" are acceptable. IF IN AGREEMENT, YOU MUST DOCUMENT ABOVE DIAGNOSTIC STATEMENT IN DAILY PROGRESS NOTES AND DISCHARGE SUMMARY. This document is not part of the patient's record. Thank You, Stalin Hayes RN [phone]
--- NOTE | 2016-12-07 06:38 | Clinical Documentation Query ---
MISAEL Sandoval : CLINICAL DOCUMENTATION QUERY Admission BUN, creatinine, and GFR were 46 mg/dl, 1.40 mg/dl, and 34 ml/min. Repeat values this yesterday morning (12/06) were 34 mg/dl, 0.96 mg/dl, and 53 ml/min. Patient has been treated with IVF and monitored with I/O, serial chemistries. In your clinical opinion is this patient being managed for: ( x ) Acute kidney failure, POA, resolved ( ) Other explanation of clinical findings (Please Explain) ( ) Unable to determine (Please Define) ( ) Need to Discuss ( ) Not Agree The medical record reflects the following clinical findings, treatment, and risk factors. Clinical Indicators: As above Treatment:Patient has been treated with IVF and monitored with I/O, serial chemistries. Risk Factors: Infection, poor intake. Please clarify and document your clinical opinion in the progress notes and discharge summary. Terms such as "probable", "suspected", "likely", "questionable", "possible", or "still to be ruled out" are acceptable. IF IN AGREEMENT, YOU MUST DOCUMENT ABOVE DIAGNOSTIC STATEMENT IN DAILY PROGRESS NOTES AND DISCHARGE SUMMARY. This document is not part of the patient's record. Thank You, Stalin Hayes, RN [phone]
[2016-12-07 07:37] VITALS: BP 163/96; PULSE 82; TEMP 36.4; O2SAT 96
[2016-12-07] MEDS: METOPROLOL TARTRATE 50 MG TAB PO SCH ×2 (07:43→20:26)
[2016-12-07] MEDS: CEROVITE ADV FORMULA TAB PO SCH (07:43)
[2016-12-07] MEDS: DILTIAZEM HCL 240 MG CAPCR PO SCH (07:44)
[2016-12-07] MEDS: FUROSEMIDE 40 MG TAB PO SCH (07:44)
[2016-12-07] MEDS: ASPIRIN 81 MG ECTAB PO SCH (07:46)
[2016-12-07 07:47] LABS: BASO % 0.1 %; BASO ABS # 0.01 K/uL (0-0.2); COMPLETE YES; EOS % 3.3 %; HEMATOCRIT 40.3 % (37-47); IG% 0.3 %; LYMPH ABS # 1.01 K/uL (1.2-3.4); MEAN CELL VOLUME 102.3 fL (80-100); MEAN CORPUSCULAR HGB CONC 32.3 g/dl (32-36); MEAN PLATELET VOLUME 9.9 fL (7.4-10.4); MONO % 10.4 %; NEUT % 74.9 %; PLATELET COUNT 173 K/uL (130-400); RED BLOOD COUNT 3.94 M/uL (4.2-5.4); WHITE BLOOD COUNT 9.21 K/uL (4.8-10.8)
[2016-12-07] MEDS: POTASSIUM CHLORIDE 20 MEQ TABCR PO SCH (07:47)
[2016-12-07] MEDS: ALPRAZOLAM 0.5 MG TAB PO PRN (07:51)
[2016-12-07 08:01] LABS: INR 2.3 (0.9-1.1); PROTHROMBIN TIME (PATIENT) 25.5 SECONDS (9.0-12.0)
--- NOTE | 2016-12-07 08:08 | Hospitalist Progress Note ---
Hospitalist Progress Note Date of Service Dec 07, 2016. Medications Medications (Trade) Dose Ordered Sig/Arjun Route Start Time Stop Time Status Last Admin Dose Admin Aspirin (Ecotrin Tab) 81 mg QAM PO 12/06/16 09:00 01/05/17 08:59 12/07/16 07:46 81 MG Atorvastatin Calcium (Lipitor Tab) 20 mg HS PO 12/06/16 21:00 01/05/17 20:59 12/06/16 21:54 20 MG Diltiazem HCl (Cardizem Cd Cap) 240 mg DAILY PO 12/06/16 09:00 01/05/17 08:59 12/07/16 07:44 240 MG Furosemide (Lasix Tab) 40 mg QAM PO 12/06/16 09:00 01/05/17 08:59 12/07/16 07:44 40 MG Lorazepam (Ativan Tab) 0.5 mg HS PO 12/06/16 21:00 01/05/17 20:59 12/06/16 21:54 0.5 MG Metoprolol Tartrate (Lopressor Tab) 100 mg BID PO 12/06/16 09:00 12/06/16 15:53 DC 12/06/16 08:04 100 MG Multivitamins/ Minerals (Multivitamin W/ Minerals Tab) 1 tab DAILY PO 12/06/16 09:00 01/05/17 08:59 12/07/16 07:43 1 TAB Potassium Chloride (Klor-Con Tab) 20 meq DAILY PO 12/06/16 09:00 01/05/17 08:59 12/07/16 07:47 20 MEQ Warfarin Sodium (Coumadin Tab) 4 mg SuTuThSa@1600 PO 12/06/16 16:00 01/05/17 15:59 12/06/16 16:14 4 MG Alprazolam (Xanax Tab) 0.5 mg TODAY@1130 PO 12/06/16 11:30 12/06/16 13:00 DC 12/06/16 11:32 0.5 MG Alprazolam (Xanax Tab) 0.5 mg Q8H PRN PO 12/06/16 11:30 01/05/17 11:29 12/07/16 07:51 0.5 MG Metoprolol Tartrate (Lopressor Tab) 50 mg BID PO 12/06/16 21:00 01/05/17 20:59 12/07/16 07:43 50 MG Objective Vital Signs Date Time Temp Pulse Resp B/P Pulse Ox O2 Delivery O2 Flow Rate FiO2 12/07/16 07:37 36.4 82 20 163/96 96 Nasal Cannula 3.5 12/07/16 04:00 Room Air 12/07/16 03:52 36.5 88 22 146/72 98 Nasal Cannula 4.0 12/07/16 00:00 36.3 82 20 153/67 99 Nasal Cannula 4.0 12/06/16 23:59 Room Air 12/06/16 20:00 Room Air 12/06/16 19:12 36.2 85 16 153/72 96 Nasal Cannula 2.0 12/06/16 16:09 36.8 65 16 133/72 95 Room Air 12/06/16 16:00 Nasal Cannula 4.0 12/06/16 12:00 Nasal Cannula 4.0 12/06/16 11:43 36.2 69 16 107/74 100 Nasal Cannula 4.0 Laboratory Results Last 24 Hours Test 12/06/16 08:48 12/06/16 13:00 12/07/16 07:16 Potassium Level 3.5 mmol/L Troponin I 0.088 ng/ml White Blood Count 9.21 K/uL Red Blood Count 3.94 M/uL Hemoglobin 13.0 g/dL Hematocrit 40.3 % Mean Corpuscular Volume 102.3 fL Mean Corpuscular Hemoglobin 33.0 pg Mean Corpuscular Hemoglobin Concent 32.3 g/dl Platelet Count 173 K/uL Mean Platelet Volume 9.9 fL Neutrophils (%) (Auto) 74.9 % Lymphocytes (%) (Auto) 11.0 % Monocytes (%) (Auto) 10.4 % Eosinophils (%) (Auto) 3.3 % Basophils (%) (Auto) 0.1 % Neutrophils # (Auto) 6.90 K/uL Lymphocytes # (Auto) 1.01 K/uL Monocytes # (Auto) 0.96 K/uL Eosinophils # (Auto) 0.30 K/uL Basophils # (Auto) 0.01 K/uL RDW Standard Deviation 53.4 fL RDW Coefficient of Variation 14.3 % Immature Granulocyte % (Auto) 0.3 % Immature Granulocyte # (Auto) 0.03 K/uL Prothrombin Time 25.5 SECONDS Prothromb Time International Ratio 2.3 Interpretation Summary * Name: JULIANA NAVARRO Study Date: 12/06/2016 07:07 AM BP: 129/73 mmHg * Patient Location: [facility]\S\E219\S\1 HR: 76 * : 1930 (M/d/yyyy) Gender: Female Height: 62 in * Age: 86 yrs Ethnicity: [place] Weight: 108 lb * Ordering Physician: Pamela Mueller * Referring Physician: Self, Referred * Performed By: Cheryl Velasquez RDCS * * Reason For Study: AFIB, CHF * BSA: 1.5 m2 * History: AFIB, CHF * -- Conclusions -- * There is moderate asymmetric left ventricular hypertrophy. * Left ventricular systolic function is low normal. * Diastolic dysfunction, moderate * The left atrium is severely dilated. * The right atrium is severely dilated. * Calcified coaptation of the leaflets with mild prolapse of the anterior leaflet. * There is moderate to severe tricuspid regurgitation. * Right ventricular systolic pressure is elevated at 40-50mmHg. * There is moderate mitral regurgitation. * Minimal change from an exam performed in 10/2015 Procedure Details * A complete two-dimensional transthoracic echocardiogram was performed (2D, M-mode, Doppler and color flow Doppler). Left Ventricle * The left ventricle is normal in size. * There is moderate asymmetric left ventricular hypertrophy. * Ejection Fraction = 50-55%. * Left ventricular systolic function is low normal. * Diastolic dysfunction, moderate Right Ventricle * The right ventricle is normal in size and function. Atria * The left atrium is severely dilated. * The right atrium is severely dilated. Mitral Valve * Calcified coaptation of the leaflets with mild prolapse of the anterior leaflet. * Small mobile, echodense lesion on the anterior leaflet, likely sclerosis. No change from prior study. * There is moderate mitral regurgitation. Tricuspid Valve * The tricuspid valve is not well visualized, but is grossly normal. * There is moderate to severe tricuspid regurgitation. * Right ventricular systolic pressure is elevated at 40-50mmHg. Aortic Valve * The aortic valve is normal in structure and function. * No hemodynamically significant valvular aortic stenosis. * There is no significant aortic regurgitation. Great Vessels * The aortic root and proximal ascending aorta are normal sized. Pericardium/Pleural * There is no pericardial effusion. Assessment and Plan AMS likely 2/2 UTI Rocephin can be stopped. Urine cx is neg. Head CT negative PT and OT. May need Rehab vs SNF at [place]. Elevated troponin, Hx of CAD s/p CABG. Seems to be at Baseline and not unusual for being in AfIB- demand continue to trend x 3 patient is asymptomatic otherwise EKG with no new ST changes Will Get an Echo Afib Therapeutic, Continue Coumadin Daily INR, INR today is 2.3 Continue Diltiazem Diastolic CHF- compensated Continue Furosemide, Lopressor Xray with stable cardiomegaly DVT proph Coumadin
[2016-12-07 08:09] LABS: BUN/CREATININE RATIO 30.4 (10-20); CALCIUM 8.7 mg/dl (8.5-10.1); CREATININE 0.83 mg/dl (0.60-1.20); POTASSIUM 3.8 mmol/L (3.5-5.1)
[2016-12-07 12:20] VITALS: BP 126/79; PULSE 65; TEMP 36.2; O2SAT 94
[2016-12-07] MEDS: ACETAMINOPHEN 325 MG TAB PO PRN (15:09)
[2016-12-07 15:24] VITALS: BP 156/81; PULSE 72; TEMP 36.2; O2SAT 99
[2016-12-07] MEDS ORDERED: WARFARIN SOD 2 MG TAB PO SCH (16:00)
[2016-12-07 19:06] VITALS: BP 133/79; PULSE 74; TEMP 36.4; O2SAT 99
[2016-12-07] MEDS: LORAZEPAM 0.5 MG TAB PO SCH (20:26)
[2016-12-07] MEDS: ATORVASTATIN 20 MG TAB PO SCH (20:27)
[2016-12-08] VITALS (8 sets, daily range): BP systolic 118–172; BP diastolic 62–95; PULSE 72–90; TEMP 36.4–36.6; O2SAT 92–98
[2016-12-08] MEDS: SODIUM CHLORIDE 0.9% 1000ML 1,000 ML IV SCH (05:04)
[2016-12-08 07:02] LABS: BASO % 0.1 %; BASO ABS # 0.01 K/uL (0-0.2); COMPLETE YES; EOS % 3.7 %; HEMATOCRIT 39.2 % (37-47); IG% 0.3 %; LYMPH % 12.9 %; LYMPH ABS # 0.97 K/uL (1.2-3.4); MEAN CELL VOLUME 102.9 fL (80-100); MEAN CORPUSCULAR HEMOGLOBIN 33.3 pg (25-34); MEAN CORPUSCULAR HGB CONC 32.4 g/dl (32-36); MEAN PLATELET VOLUME 9.7 fL (7.4-10.4); MONO % 11.3 %; NEUT % 71.7 %; PLATELET COUNT 153 K/uL (130-400); RED BLOOD COUNT 3.81 M/uL (4.2-5.4); WHITE BLOOD COUNT 7.53 K/uL (4.8-10.8)
[2016-12-08 07:12] LABS: INR 2.8 (0.9-1.1); PROTHROMBIN TIME (PATIENT) 30.8 SECONDS (9.0-12.0)
[2016-12-08 07:43] LABS: BUN/CREATININE RATIO 22.3 (10-20); CALCIUM 8.5 mg/dl (8.5-10.1); CREATININE 0.75 mg/dl (0.60-1.20); POTASSIUM 4.2 mmol/L (3.5-5.1)
[2016-12-08] MEDS: ASPIRIN 81 MG ECTAB PO SCH (08:11)
[2016-12-08] MEDS: CEROVITE ADV FORMULA TAB PO SCH (08:11)
[2016-12-08] MEDS: FUROSEMIDE 40 MG TAB PO SCH (08:11)
[2016-12-08] MEDS: METOPROLOL TARTRATE 50 MG TAB PO SCH (08:11)
[2016-12-08] MEDS: POTASSIUM CHLORIDE 20 MEQ TABCR PO SCH (08:12)
[2016-12-08] MEDS: DILTIAZEM HCL 240 MG CAPCR PO SCH (08:12)
--- NOTE | 2016-12-08 11:16 | Discharge Summary ---
Discharge Summary Date of Service Dec 08, 2016. Discharge Summary Admission Date: Dec 05, 2016 at 23:13 Discharge Date: Dec 08, 2016 Discharge Disposition: [facility] facility Principal Diagnosis: Hypoxic respiratory failure Problems/Secondary Diagnoses: COPD Mitral regurgitation Moderate to severe tricuspid regurgiation Diastolic CHF (acute on chronic) Immunizations: Have You Had Influenza Vaccine: Yes History of Tetanus Vaccine?: Yes History of Pneumococcal: Yes Pneumococcal Date: Jun 11, 2010 History of Hepatitis B Vaccine: No Procedures: Interpretation Summary * Name: JULIANA NAVARRO Study Date: 12/06/2016 07:07 AM BP: 129/73 mmHg * Patient Location: [facility]\S\E219\S\1 HR: 76 * : 1930 (M/d/yyy) Gender: Female Height: 62 in * Age: 86 yrs Ethnicity: [place] Weight: 108 lb * Ordering Physician: Pamela Mueller * Referring Physician: Self, Referred * Performed By: Cheryl Velasquez RDCS * * Reason For Study: AFIB, CHF * BSA: 1.5 m2 * History: AFIB, CHF * -- Conclusions -- * There is moderate asymmetric left ventricular hypertrophy. * Left ventricular systolic function is low normal. * Diastolic dysfunction, moderate * The left atrium is severely dilated. * The right atrium is severely dilated. * Calcified coaptation of the leaflets with mild prolapse of the anterior leaflet. * There is moderate to severe tricuspid regurgitation. * Right ventricular systolic pressure is elevated at 40-50mmHg. * There is moderate mitral regurgitation. * Minimal change from an exam performed in 10/2015 Procedure Details Medication Reconciliation Continued Medications: Ascorbic Acid (Vitamin C) 500 Mg Tab 500 MG PO BI Aspirin (Aspirin Ec) 81 Mg Tab 81 MG PO QAM Atorvastatin (Lipitor) 20 Mg Tab 20 MG PO HS for 30 Days, TAB 5 Refills Calcium Carbonate (Calcium) 600 Mg Tab 600 MG PO BID Diltiazem Hcl (Diltiazem Cd) 240 Mg Capcr 240 MG PO DAILY Furosemide (Furosemide) 40 Mg Tab 40 MG PO QAM Lorazepam (Lorazepam) 0.5 Mg Tab 0.5 MG PO HS Metoprolol Tartrate (Lopressor) (Lopressor) 100 Mg Tab 100 MG PO BID, 0 Refills Multivitamins/Minerals (Mvi With Minerals) Tab 1 TAB PO DAILY, TAB Potassium Ext Rel (Klor-Con) 20 Meq Tabcr 20 MEQ PO DAILY, 0 Refills Warfarin Sodium (Coumadin) 2 Mg Tab 2 MG PO UD, TAB MON, WED, FRI Warfarin Sodium (Coumadin) 2 Mg Tab 4 MG PO 4XWK, TAB TAKE SUN, TUES, THUR, SAT Discharge Exam Physical Exam: General Appearance: WD/WN, no apparent distress ENT: normal ENT inspection Neck: supple, no adenopathy Respiratory/Chest: no respiratory distress, + wheezing Cardiovascular: no edema, no gallop, + irregularly irregular Abdomen / GI: normal bowel sounds, non tender, soft Extremities: normal inspection, no calf tenderness 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 Her son was not in the room to confirm this history as it does seem to be different to what was told to the ED physician. She says that she came here because she was having a panic attack. However, upon further questioning, she does report that she had some right sided back pain and right groin pain since yesterday. She denies urinary symptoms. The patient is intermittently and pleasantly confused. Denies chest pain, shortness of breath, palpitations, fevers, chills, nausea, vomiting, diarrhea, headaches, melena, hematuria. AMS likely 2/2 UTI Rocephin can be stopped. Urine cx is neg. Head CT negative PT and OT. [place]hab [place] SNF [place] Elevated troponin, Hx of CAD s/p CABG. Seems to be at Baseline and not unusual for being in AfIB- demand Mild increase in troponin due to demand ischemia patient is asymptomatic otherwise EKG with no new ST changes Echo results noted. Afib Therapeutic, Continue Coumadin Daily INR, Continue Diltiazem Diastolic CHF- compensated Continue Furosemide, Lopressor Xray with stable cardiomegaly DVT proph Coumadin Total Time Spent: Greater than 30 minutes This includes examination of the patient, discharge planning, medication reconciliation, and communication with other providers. Discharge Instructions Please refer to the electronic Patient Visit Report (Discharge Instructions) for additional information. Follow-Up PCP in one to two weeks
--- NOTE | 2016-12-08 11:22 | Discharge Instructions ---
Discharge Instructions Date of Service Dec 08, 2016. Admission Reason for Admission: Elevated Troponin, Uti Discharge Discharge Diagnosis / Problem: Acute on chronic diastolic CHF Discharge Goals Goal(s): Learn about illness Activity Recommendations Activity Limitations: resume your previous activity Lifting Limitations: none Exercise/Sports Limitations: as tolerated Shower/Bathe: no limitations Driving or Machine Use: no limitations . Instructions / Follow-Up Instructions / Follow-Up Call your Primary Care doctor if any of the following symptoms or problems start or get worse: * Shortness of breath or difficulty breathing * Wake up at night short of breath * Chest pain * Cough * Swelling of your hands, feet, or legs * More fatigued or tired with your normal activity * Palpitations - sudden fast heart beats WEIGHT * Weigh yourself every morning after using the bathroom. * Use the same scale. * Wear the same amount of clothing. * Write your weight down on a chart. * Call your Primary Care doctor if you gain more than 2-3 pounds in 1-2 days. MEDICATIONS * Use this discharge instruction sheet for medication instructions. * Take your medications at the time your doctor ordered. * Do not skip a dose of your medicines. * If you miss a dose of medicine, take it as soon as possible, but DO NOT DOUBLE A DOSE. * Read your medicine information when you get home. * Know all of the side effects of your medicine. If in doubt, ask your pharmacist * Call your Primary Care doctor's office if you have any side effects. * Be sure all of your doctors know what medicine and herbs you take (including cold, flu, and herbal medicine). Take the following with you to your follow-up doctor appointments: * Weight Chart * Medication List * List of questions Do not drink excessive alcohol, beer or wine. Current Hospital Diet Patient's current hospital diet: AHA Diet (Heart Healthy) Discharge Diet Recommended Diet: AHA Diet (Heart Healthy) Fluid Restriction: 1000 ml (4 cups) Pending Studies Studies pending at discharge: no Medical Emergencies . Who to Call and When: Call 911 or go to the Emergency Room if: * If at any time you feel your situation is an emergency * You have tightness or pain in your chest that does not go away with rest or Nitroglycerin * You are very short of breath even with rest . Non-Emergent Contact Non-Emergency issues call your: Primary Care Provider . Past History Medical & Surgical History: (1) COPD (chronic obstructive pulmonary disease) (2) Elevated troponin (3) Generalized weakness (4) CHF exacerbation (5) Atrial Fibrillation . "Provider Documentation" section prepared by Venecia Vásquez. VTE Core Measure Inpt VTE Proph given/why not?: Warfarin (Coumadin)
[2016-12-08] MEDS: ALPRAZOLAM 0.5 MG TAB PO PRN (13:43)
[2017-03-10] MEDS ORDERED: CMD3 PO (13:21)
[2017-03-10] MEDS ORDERED: LSX20 PO (13:21)
[2017-03-10] MEDS ORDERED: PRD20 PO (13:22)
== END 2016-12-08 15:34 | DRG 689 ==
LOC: ENRESERVDT → ENRESERVTM → C.EDB 15:58 → C.2T 23:13
PROVIDERS: ADMIT Student in an Organized Health Care Education/Training Program; ATTEND Hospitalist
DX: N39.0 Urinary tract infection, site not specified (principal); I50.33 Acute on chronic diastolic (congestive) heart failure; J96.90 Respiratory failure, unspecified, unspecified whether with hypoxia or hypercapnia; N17.9 Acute kidney failure, unspecified; I48.91 Unspecified atrial fibrillation; J44.9 Chronic obstructive pulmonary disease, unspecified; I25.10 Atherosclerotic heart disease of native coronary artery without angina pectoris; M54.9 Dorsalgia, unspecified; R10.30 Lower abdominal pain, unspecified; R41.0 Disorientation, unspecified; R31.9 Hematuria, unspecified; F41.0 Panic disorder [episodic paroxysmal anxiety]; I11.9 Hypertensive heart disease without heart failure; I08.1 Rheumatic disorders of both mitral and tricuspid valves; R79.89 Other specified abnormal findings of blood chemistry; R41.82 Altered mental status, unspecified; R53.1 Weakness; I25.2 Old myocardial infarction; Z95.1 Presence of aortocoronary bypass graft; Z87.891 Personal history of nicotine dependence; Z86.79 Personal history of other diseases of the circulatory system; Z87.19 Personal history of other diseases of the digestive system; Z79.82 Long term (current) use of aspirin; Z79.01 Long term (current) use of anticoagulants; Z79.899 Other long term (current) drug therapy

== ENCOUNTER 2017-03-06 13:34 | Inpatient (IN) | payer OTHER, BC ==
[~2017-03-06] VITALS: Ht 157.5 cm; Wt 51.2 kg
[~2017-03-06 13:34] MED LIST changes: +CALC-393 PO; -CALCTAB5 PO
--- NOTE | 2017-03-06 14:18 | DIAGNOSTIC IMAGING REPORT ---
SINGLE VIEW CHEST CLINICAL HISTORY: Dyspnea. FINDINGS: An AP, portable, upright chest radiograph is compared to study dated 12/05/2016. Correlation is made with chest CT dated 05/24/2014. The examination is degraded by portable technique and patient rotation. The heart is enlarged and there is advanced atherosclerotic calcification of the thoracic aorta. The pulmonary vasculature is noncongested. Enlargement the central pulmonary vessels suggests pulmonary artery hypertension. Emphysema and chronic interstitial thickening are unchanged. Chronic elevation of right hemidiaphragm is similar to previous. There are small pleural effusions with bibasilar consolidation,. No pneumothorax is seen. The skeletal structures are osteopenic. The bony thorax is grossly intact. Degenerative change and scoliosis is noted in the thoracic spine. Calcified joint bodies are noted around the shoulders, right greater than left. IMPRESSION: 1. Cardiomegaly and emphysema. There is no radiographic evidence of congestive failure. 2. Small pleural effusions with bibasilar consolidation. This likely represents atelectasis. Clinical correlation will be required. Electronically signed by: Miki Corado M.D. 03/06/2017 2:17 PM Dictated Date/Time: 03/06/2017 2:15 PM
[2017-03-06 14:32] LABS: BASO % 0.2 %; BASO ABS # 0.01 K/uL (0-0.2); COMPLETE YES; EOS % 2.7 %; IG% 0.3 %; LYMPH % 14.5 %; LYMPH ABS # 0.87 K/uL (1.2-3.4); MEAN CELL VOLUME 108.8 fL (80-100); MEAN CORPUSCULAR HGB CONC 31.2 g/dl (32-36); MEAN PLATELET VOLUME 10.4 fL (7.4-10.4); MONO % 12.6 %; NEUT % 69.7 %; PLATELET COUNT 164 K/uL (130-400); RED BLOOD COUNT 3.77 M/uL (4.2-5.4); WHITE BLOOD COUNT 6.02 K/uL (4.8-10.8)
[2017-03-06 14:41] LABS: BUN/CREATININE RATIO 23.8 (10-20); CALCIUM 9.1 mg/dl (8.5-10.1); POTASSIUM 4.7 mmol/L (3.5-5.1)
[2017-03-06 14:59] LABS: VEN BLD GAS O2 SATURATION < 60.0 %; VENOUS BLOOD GAS PCO2 83 mmHg (38.0-50.0); VENOUS BLOOD GAS PO2 32 mmHg
[2017-03-06 15:08] LABS: URINE APPEARANCE CLEAR (CLEAR); URINE BILIRUBIN NEG (NEG); URINE COLOR YELLOW; URINE EPITHELIAL CELL AUTO 20-30 /lpf (0-5); URINE NITRITE NEG (NEG); URINE SPECIFIC GRAVITY 1.015 (1.000-1.030); UROBILINOGEN NEG (NEG)
[2017-03-06 15:09] LABS: MANUAL MICROSCOPIC REQUIRED? NO; REVIEW REQ? NO
[2017-03-06 15:13] LABS: PARTIAL THROMBOPLASTIN RATIO 1.6; PROTHROMBIN TIME (PATIENT) 40.8 SECONDS (9.0-12.0)
[2017-03-06 15:19] LABS: INR 3.6 (0.9-1.1)
[2017-03-06] MEDS ORDERED: ASPIRIN 81 MG CHEW PO STA (15:27)
[2017-03-06] MEDS ORDERED: FUROSEMIDE INJ 20 MG in SYRINGE 0 ML IV SCH (15:45)
[2017-03-06] MEDS ORDERED: VNTHFA/IN INH (15:46)
[2017-03-06] MEDS ORDERED: ALPR-411 PO (15:46)
[2017-03-06] MEDS ORDERED: NTRGSL/4 UT (15:46)
[2017-03-06] MEDS ORDERED: ALL100 PO (15:46)
[2017-03-06] MEDS ORDERED: FURO-85 PO (15:46)
[2017-03-06] MEDS ORDERED: MULT-506 PO (15:46)
[2017-03-06] MEDS ORDERED: FUROSEMIDE 40 MG/4 ML VIAL ONE (16:14)
[2017-03-06 16:44] VITALS: BP 153/64; PULSE 59; TEMP 36.4; O2SAT 90; Ht 157.5 cm; Wt 51.2 kg
[2017-03-06] MEDS ORDERED: ALBUTEROL HFA 8 GM INHALER INH PRN (16:45)
[2017-03-06] MEDS ORDERED: MoRPHine SULFATE 2 MG/ML CARP IV PRN (16:45)
[2017-03-06] MEDS ORDERED: ONDANSETRON INJ 2 MG/ML 2 ML VIAL IV PRN (16:45)
[2017-03-06] MEDS ORDERED: ACETAMINOPHEN 325 MG TAB PO PRN (16:45)
[2017-03-06] MEDS ORDERED: MAGNESIUM HYDROXIDE SUSP 30 ML UDC PO PRN (16:45)
[2017-03-06] MEDS ORDERED: NITROGLYCERIN 0.4 MG SL PER TAB CHARGE UT SCH (16:45)
[2017-03-06] MEDS ORDERED: POLYETHYLENE (MIRALAX) 17 GM PACK PO PRN (16:45)
[2017-03-06] MEDS ORDERED: ALUMINUM/MAGNESIUM/SIMETH (MAALOX MAX) 30 ML UDC PO PRN (16:45)
[2017-03-06] MEDS ORDERED: NITROGLYCERIN 0.4 MG SL PER TAB CHARGE SL PRN (16:45)
--- NOTE | 2017-03-06 17:18 | History and Physical ---
History & Physical Date & Time of Service: Mar 06, 2017 at 16:53 Chief Complaint: Edema - Breathing - Heart Issues Primary Care Physician: Nathaniel Gomez M.D. History of Present Illness Source: patient, family 86 year old female with PMH of COPD and CHF sent to the ED from Dr. Gomez's office after having low oxygen saturations in the office. She has been having increased difficulty breathing over the last 3 days. She says that her shortness of breath has gotten worse with ambulation. She has also noticed that she has had worsening swelling in her legs. Her son has been taking her oxygen saturations at home and he says when he took it this morning it was in the 80's. She has had trouble taking her lasix and has not been taking all her doses as she has not been going to her PCP appointments regularly. She was admitted at the end of October for a CHF exacerbation. She does not have a asparagus buncher and she takes lasix at home. She denies any PND, palpitations, chest pain, cough, fevers, chills, intermittent claudication or abdominal swelling Past Medical/Surgical History Medical Problems: (1) Abdom Aortic Aneurysm Status: Resolved (2) Atrial Fibrillation Status: Resolved (3) COPD (chronic obstructive pulmonary disease) Status: Chronic (4) Myocardial infarction Status: Resolved Surgical Problems: (1) S/P CABG x 3 Status: Resolved Family History Heart disease Father had [place] at 63 Mother of natural causes at 83 Social History Smoking Status: Former Smoker (50 year pack year history) Smokeless Tobacco Use: No Alcohol Use: occasionally Drug Use: none Marital Status: Housing status: lives alone Occupational Status: retired Immunizations History of Influenza Vaccine: Yes History of Tetanus Vaccine?: Yes History of Pneumococcal: Yes Pneumococcal Date: Jun 11, 2010 History of Hepatitis B Vaccine: No Multi-Drug Resistant Organisms History of MDRO: No Allergies Coded Allergies: Penicillins (Verified Allergy, Unknown, RASH, 10/14/16) Home Medications Scheduled Allopurinol (Allopurinol), 100 MG PO DAILY Alprazolam (Xanax), 0.5 MG PO HS Ascorbic Acid (Vitamin C), 500 MG PO DAILY Aspirin (Aspirin Ec), 81 MG PO QAM Atorvastatin (Lipitor), 20 MG PO HS Calcium Carbonate (Calcium), 600 MG PO BID Diltiazem Hcl (Diltiazem Cd), 240 MG PO DAILY Furosemide (Lasix), 20 MG PO 2XWK Metoprolol Tartrate (Lopressor) (Lopressor), 100 MG PO BID Multivitamin (Multivitamin), 1 TAB PO DAILY Nitroglycerin (Nitrostat), 0.4 MG UT PRN Potassium Ext Rel (Klor-Con), 20 MEQ PO DAILY Warfarin Sodium (Coumadin), 4 MG PO DAILY Scheduled PRN Albuterol Hfa (Ventolin Hfa), 1-2 PUFFS INH Q6H PRN for SOB/Wheezing Review of Systems Constitutional: + weakness, + fatigue, No fever, No chills, No sweats Respiratory: + shortness of breath, + dyspnea on exertion, No cough, No sputum , No wheezing, No dyspnea at rest Cardiovascular: + edema, No chest pain, No orthopnea, No claudication, No palpitations Abdomen: No pain, No nausea, No vomiting Genitourinary - Female: No dysuria, No urinary frequency Physical Exam Vital Signs Date Time Temp Pulse Resp B/P (MAP) Pulse Ox O2 Delivery O2 Flow Rate FiO2 03/06/17 16:00 78 28 90 03/06/17 15:30 78 20 94 03/06/17 15:00 79 24 96 03/06/17 14:45 77 20 146/79 96 Nasal Cannula 4.0 03/06/17 14:02 68 03/06/17 13:55 99 Nasal Cannula 5.0 03/06/17 13:55 83 Nasal Cannula 4.0 03/06/17 13:39 36.5 112 24 130/65 80 Nasal Cannula 4.0 General Appearance: WD/WN, no apparent distress, + thin Head: normocephalic, atraumatic Eyes: normal inspection, PERRL, sclerae normal ENT: pharynx normal Neck: supple, no adenopathy, thyroid normal, no carotid bruits, trachea midline , + JVD (JVD to the angle of the mandible) Respiratory/Chest: chest non-tender, lungs clear, no respiratory distress, no accessory muscle use, + decreased breath sounds (bilaterally) Cardiovascular: no gallop, no murmur, + irregularly irregular, + pertinent finding Abdomen/GI: normal bowel sounds, non tender, soft, + hernia (in the RLQ) Extremities/Musculoskelatal: normal inspection, no calf tenderness, non-tender , + pedal edema (+1 bilaterally) Neurologic/Psych: alert, normal mood/affect, oriented x 3 Diagnostics Laboratory Results Results Past 24 Hours Test 03/06/17 14:00 03/06/17 14:40 03/06/17 14:50 03/06/17 16:40 Range/Units White Blood Count 6.02 4.8-10.8 K/uL Red Blood Count 3.77 4.2-5.4 M/uL Hemoglobin 12.8 12.0-16.0 g/dL Hematocrit 41.0 37-47 % Mean Corpuscular Volume 108.8 80-100 fL Mean Corpuscular Hemoglobin 34.0 25-34 pg Mean Corpuscular Hemoglobin Concent 31.2 32-36 g/dl Platelet Count 164 130-400 K/uL Mean Platelet Volume 10.4 7.4-10.4 fL Neutrophils (%) (Auto) 69.7 % Lymphocytes (%) (Auto) 14.5 % Monocytes (%) (Auto) 12.6 % Eosinophils (%) (Auto) 2.7 % Basophils (%) (Auto) 0.2 % Neutrophils # (Auto) 4.20 1.4-6.5 K/uL Lymphocytes # (Auto) 0.87 1.2-3.4 K/uL Monocytes # (Auto) 0.76 0.11-0.59 K/uL Eosinophils # (Auto) 0.16 0-0.5 K/uL Basophils # (Auto) 0.01 0-0.2 K/uL RDW Standard Deviation 57.2 36.4-46.3 fL RDW Coefficient of Variation 14.3 11.5-14.5 % Immature Granulocyte % (Auto) 0.3 % Immature Granulocyte # (Auto) 0.02 0.00-0.02 K/uL Sodium Level 142 136-145 mmol/L Potassium Level 4.7 3.5-5.1 mmol/L Chloride Level 101 98-107 mmol/L Carbon Dioxide Level 37 21-32 mmol/L Anion Gap 4.0 3-11 mmol/L Blood Urea Nitrogen 24 7-18 mg/dl Creatinine 1.00 0.60-1.20 mg/dl Est Creatinine Clear Calc Drug Dose 31.3 ml/min Estimated GFR () 58.7 Estimated GFR (Non- 50.6 BUN/Creatinine Ratio 23.8 10-20 Random Glucose 101 70-99 mg/dl Calcium Level 9.1 8.5-10.1 mg/dl Total Bilirubin 0.6 0.2-1 mg/dl Aspartate Amino Transf (AST/SGOT) 25 15-37 U/L Alanine Aminotransferase (ALT/SGPT) 24 12-78 U/L Alkaline Phosphatase 100 45-117 U/L Troponin I 0.099 0-0.045 ng/ml Pro-B-Type Natriuretic Peptide 6570 0-1800 pg/ml Total Protein 6.7 6.4-8.2 gm/dl Albumin 3.4 3.4-5.0 gm/dl Globulin 3.3 2.5-4.0 gm/dl Albumin/Globulin Ratio 1.0 0.9-2 Urine Color YELLOW Urine Appearance CLEAR CLEAR Urine pH 5.0 4.5-7.5 Urine Specific [place] 1.015 1.000-1.030 Urine Protein NEG NEG Urine Glucose (UA) NEG NEG Urine Ketones NEG NEG Urine Occult Blood NEG NEG Urine Nitrite NEG NEG Urine Bilirubin NEG NEG Urine Urobilinogen NEG NEG Urine Leukocyte Esterase SMALL NEG Urine WBC (Auto) 5-10 0-5 /hpf Urine RBC (Auto) 0-4 0-4 /hpf Urine Hyaline Casts (Auto) 0 0-5 /lpf Urine Epithelial Cells (Auto) 20-30 0-5 /lpf Urine Bacteria (Auto) NEG NEG Prothrombin Time 40.8 9.0-12.0 SECONDS Prothromb Time International Ratio 3.6 0.9-1.1 Activated Partial Thromboplast Time 42.0 21.0-31.0 SECONDS Partial Thromboplastin Ratio 1.6 D-Dimer 1250 0-500 ug/L FEU Venous Blood pH 7.29 7.36-7.41 Venous Blood Partial Pressure CO2 83 38.0-50.0 mmHg Venous Blood Partial Pressure O2 32 mmHg Venous Blood HCO3 39 mmol/L Venous Blood Oxygen Saturation < 60.0 % Venous Blood Base Excess 9.0 mmol/L Diagnostic Radiology CXR 1. Cardiomegaly and emphysema. There is no radiographic evidence of congestive failure. 2. Small pleural effusions with bibasilar consolidation. This likely represents atelectasis. Clinical correlation will be required. EKG Atrial fibrillation with right axis deviation Impression Assessment and Plan 86 year old female with a PMH of CHF and COPD admitted to the hospital for a CHF exacerbation. This is likely due to poor compliance with lasix medication as patient has not been taking her doses regularly as she has been missing some of her doctors appointments. CHF exacerbation (diastolic dysfunction: last echo december 06 with EF of 50-55%) - give IV lasix 40mg once - check I/O's - repeat BMP tomorrow - hold home lasix - potassium PO - con't aspirin COPD - continue O2 via nasal cannula (goal of 88-92%) - Duoneb scheduled - albuterol PRN Atrial fibrillation (rate controlled) - on diltiazem and metoprolol - admit to telemetry - hold warfarin (INR 3.6), recheck INR in am - regular coumadin dose is 1mg Mon, Mon, Monday and 2mg Monday, , Monday, Monday HLD - lipitor Anxiety - alprazolam Gout - allopurinol Diet - Low sodium diet DVT prophylaxis - on coumadin INR 3.6 Dispo - lives alone with 10 hours of help per day, sons help her out regularly Code - Full w/out mechanical or cardio resusc Level of Care Telemetry Resuscitation Status FULL NO CARDIOV/MECH KATINA VTE Prophylaxis VTE Risk Assessment Done? Y/N: Yes Risk Level: Moderate Given or contraindicated: Warfarin (Coumadin) Reviewed: Pt Seen/Exam by Me History Pt is feeling much improved. Son is present and states she still appears SOB but looks much better than prior. He states that she has been missing lasix doses lately due to cancelling her PCP appts. PCP does not give her refills as he has been unable to evaluate her in the office. She is also quite overdue for INR check. No chest pain. Worsening LE edema over the last few days. Agree with HPI/ROS as noted. General Appearance: no apparent distress, thin Eye Exam: bilateral eye normal inspection Neck: supple Respiratory: no respiratory distress, decreased breath sounds Cardiovascular: normal peripheral pulses, regular rate, rhythm Gastrointestinal: non tender, soft Extremities: non-tender, pedal edema (L>R) Neurologic/Psychiatric: alert, normal mood/affect Skin Characteristics: normal color, warm/dry Assessment/Plan Agree with plan as outlined above diastolic CHF exacerbation in the setting of missed lasix dosing Recent ECHO in November, will not repeat given missed dosing Elevated trop, likely demand ischemia Serials pending Monitor Elevated ddimer, likely related to age. PE quite unlikely given INR 3.5. Sx likely attributed to CHF exacerbation. VSS other than hypoxia COPD: not in exacerbation, will give scheduled nebs to avoid
[2017-03-06 17:43] LABS: INR 3.7 (0.9-1.1); PROTHROMBIN TIME (PATIENT) 41.9 SECONDS (9.0-12.0)
[2017-03-06 17:54] VITALS: BP 153/64; PULSE 59; TEMP 36.4; O2SAT 96
[2017-03-06] MEDS ORDERED: FUROSEMIDE INJ 40 MG in SYRINGE 0 ML IV SCH (18:00)
--- NOTE | 2017-03-06 18:10 | EMERGENCY ROOM VISIT NOTE ---
History Report prepared by Lu: Nydia Balbuena Under the Supervision of: Dr. Angelo Ferrer D.O. First contact with patient: 13:43 Chief Complaint: RESPIRATORY PROBLEMS Stated Complaint: EDEMA - BREATHING - HEART ISSUES Nursing Triage Summary: triage note: Pt reports she was seen at dr bernal's office and sent to ed for further eval. pt reports she has hx of copd and had had increasing shortness of breath over the past week. History of Present Illness The patient is a 86 year old female who presents to the Emergency Room with complaints of persistent respiratory problems that started a couple days ago. The patient is on 3 L of nasal cannula oxygen all the time at home. Her son states that he checks on her every day and he measures her oxygen saturation. When he checked her oxygen saturation this morning it was under 80%. He increased her nasal cannula oxygen to 3.5 L. She saw her PCP earlier today and he recommended coming into the ED for admission. Her PCP increased her nasal cannula oxygen to 4 L but her oxygen saturation was still low. The patient's son states that the patient's oxygen saturations were in the 90s over the past week. He states that she has been experiencing trouble breathing for the last 3 days. He also states that she is experiencing worsening lower extremity edema. He states that he measures he ankles and feet daily. The patient denies cough and any pain, including chest pain. The patient has a history of COPD and congestive heart failure. The patient is also experiencing increased confusion, but the patient's son states that it has been gradually worsening for months now so it is not that abnormal for the patient. The patient experienced a headache yesterday, but denies any headaches currently. The patient's son adds that the patient has an abdominal hernia that is continually getting bigger and causes the patient pain but he states that she is not a good surgery candidate. The patient is on Coumadin. Source of History: patient, family (son) Onset: a couple days ago Position: chest Quality: other (respiratory problems) Timing: other (persistent) Associated Symptoms: No cough, No chest pain Note: lower extremity edema Review of Systems See HPI for pertinent positives & negatives. A total of 10 systems reviewed and were otherwise negative. Past Medical & Surgical Medical Problems: (1) Abdom Aortic Aneurysm (2) Anxiety State Nos (3) Atrial Fibrillation (4) Cellulitis (5) CHF exacerbation (6) Congestive Heart Failure Nos (7) COPD (chronic obstructive pulmonary disease) (8) Coron Atheroscler Nos Type Vessel, [place] Or Graft (9) Diverticulosis Colon (W/O Ment Of Hemorrhage) (10) Diverticulosis Colon (W/O Ment Of Hemorrhage) (11) Hypertension Nos (12) Myocardial infarction (13) Oth Atherosclerosis [place] Arteries Extremities (14) Shortness of breath on exertion (15) Tobacco Use Disorder (16) Tricuspid Valve Disease Surgical Problems: (1) S/P CABG x 3 (2) Tobacco Use Disorder Family History Heart disease Social History Smoking Status: Former Smoker Alcohol Use: none Drug Use: none Marital Status: Housing Status: lives alone Occupation Status: retired Current/Historical Medications Scheduled Allopurinol (Allopurinol), 100 MG PO DAILY Alprazolam (Xanax), 0.5 MG PO HS Ascorbic Acid (Vitamin C), 500 MG PO DAILY Aspirin (Aspirin Ec), 81 MG PO QAM Atorvastatin (Lipitor), 20 MG PO HS Calcium Carbonate (Calcium), 600 MG PO BID Diltiazem Hcl (Diltiazem Cd), 240 MG PO DAILY Furosemide (Lasix), 20 MG PO 2XWK Metoprolol Tartrate (Lopressor) (Lopressor), 100 MG PO BID Multivitamin (Multivitamin), 1 TAB PO DAILY Nitroglycerin (Nitrostat), 0.4 MG UT PRN Potassium Ext Rel (Klor-Con), 20 MEQ PO DAILY Warfarin Sodium (Coumadin), 4 MG PO DAILY Scheduled PRN Albuterol Hfa (Ventolin Hfa), 1-2 PUFFS INH Q6H PRN for SOB/Wheezing Allergies Coded Allergies: Penicillins (Verified Allergy, Unknown, RASH, 10/14/16) Physical Exam Vital Signs Date Time Temp Pulse Resp B/P (MAP) Pulse Ox O2 Delivery O2 Flow Rate FiO2 03/06/17 16:44 36.4 59 22 153/64 90 Nasal Cannula 4.0 03/06/17 16:35 73 96 03/06/17 16:21 151/84 03/06/17 16:05 70 22 94 03/06/17 16:00 78 28 90 03/06/17 15:30 78 20 94 03/06/17 15:00 79 24 96 03/06/17 14:45 77 20 146/79 96 Nasal Cannula 4.0 03/06/17 14:02 68 03/06/17 13:55 99 Nasal Cannula 5.0 03/06/17 13:55 83 Nasal Cannula 4.0 03/06/17 13:39 36.5 112 24 130/65 80 Nasal Cannula 4.0 Physical Exam GENERAL: alert, sitting up in bed, ill appearing, well nourished, moderate distress, on nasal cannula oxygen, non-toxic EYE EXAM: normal conjunctiva OROPHARYNX: no exudate, no erythema, lips, buccal mucosa, and tongue normal and mucous membranes are moist NECK: supple, positive JVD, no nuchal rigidity, no adenopathy, non-tender LUNGS: Diminished at the bases. Poor air movement. Normal chest wall mechanics HEART: no murmurs, S1 normal and S2 normal ABDOMEN: abdomen soft, non-tender, normo-active bowel sounds, no masses, no rebound or guarding. BACK: Back is symmetrical on inspection and there is no deformity, no midline tenderness, no CVA tenderness. SKIN: no rashes and no bruising UPPER EXTREMITIES: upper extremities are grossly normal. LOWER EXTREMITIES: Pitting edema bilaterally. NEURO EXAM: Normal sensorium, cranial nerves II-XII grossly intact, normal speech, no gross weakness of arms, no gross weakness of legs. Medical Decision & Procedures ER Provider Diagnostic Interpretation: Radiology results as stated below per my review and the radiologist's interpretation: SINGLE VIEW CHEST FINDINGS: An AP, portable, upright chest radiograph is compared to study dated 12/05/2016. Correlation is made with chest CT dated 05/24/2014. The examination is degraded by portable technique and patient rotation. The heart is enlarged and there is advanced atherosclerotic calcification of the thoracic aorta. The pulmonary vasculature is noncongested. Enlargement the central pulmonary vessels suggests pulmonary artery hypertension. Emphysema and chronic interstitial thickening are unchanged. Chronic elevation of right hemidiaphragm is similar to previous. There are small pleural effusions with bibasilar consolidation,. No pneumothorax is seen. The skeletal structures are osteopenic. The bony thorax is grossly intact. Degenerative change and scoliosis is noted in the thoracic spine. Calcified joint bodies are noted around the shoulders, right greater than left. IMPRESSION: 1. Cardiomegaly and emphysema. There is no radiographic evidence of congestive failure. 2. Small pleural effusions with bibasilar consolidation. This likely represents atelectasis. Clinical correlation will be required. Electronically signed by: Miki Corado M.D. 03/06/2017 2:17 PM Dictated Date/Time: 03/06/2017 2:15 PM Laboratory Results 03/06/17 14:00 Red Blood Count 3.77, Mean Corpuscular Volume 108.8, Mean Corpuscular Hemoglobin 34.0, Mean Corpuscular Hemoglobin Concent 31.2, Mean Platelet Volume 10.4, Neutrophils (%) (Auto) 69.7, Lymphocytes (%) (Auto) 14.5, Monocytes (%) ( Auto) 12.6, Eosinophils (%) (Auto) 2.7, Basophils (%) (Auto) 0.2, Neutrophils # (Auto) 4.20, Lymphocytes # (Auto) 0.87, Monocytes # (Auto) 0.76, Eosinophils # ( Auto) 0.16, Basophils # (Auto) 0.01 03/06/17 14:00 Test 03/06/17 14:00 03/06/17 14:40 03/06/17 14:50 White Blood Count 6.02 K/uL (4.8-10.8) Red Blood Count 3.77 M/uL (4.2-5.4) Hemoglobin 12.8 g/dL (12.0-16.0) Hematocrit 41.0 % (37-47) Mean Corpuscular Volume 108.8 fL (80-100) Mean Corpuscular Hemoglobin 34.0 pg (25-34) Mean Corpuscular Hemoglobin Concent 31.2 g/dl (32-36) Platelet Count 164 K/uL (130-400) Mean Platelet Volume 10.4 fL (7.4-10.4) Neutrophils (%) (Auto) 69.7 % Lymphocytes (%) (Auto) 14.5 % Monocytes (%) (Auto) 12.6 % Eosinophils (%) (Auto) 2.7 % Basophils (%) (Auto) 0.2 % Neutrophils # (Auto) 4.20 K/uL (1.4-6.5) Lymphocytes # (Auto) 0.87 K/uL (1.2-3.4) Monocytes # (Auto) 0.76 K/uL (0.11-0.59) Eosinophils # (Auto) 0.16 K/uL (0-0.5) Basophils # (Auto) 0.01 K/uL (0-0.2) RDW Standard Deviation 57.2 fL (36.4-46.3) RDW Coefficient of Variation 14.3 % (11.5-14.5) Immature Granulocyte % (Auto) 0.3 % Immature Granulocyte # (Auto) 0.02 K/uL (0.00-0.02) Anion Gap 4.0 mmol/L (3-11) Est Creatinine Clear Calc Drug Dose 31.3 ml/min Estimated GFR () 58.7 Estimated GFR (Non- 50.6 BUN/Creatinine Ratio 23.8 (10-20) Calcium Level 9.1 mg/dl (8.5-10.1) Total Bilirubin 0.6 mg/dl (0.2-1) Aspartate Amino Transf (AST/SGOT) 25 U/L (15-37) Alanine Aminotransferase (ALT/SGPT) 24 U/L (12-78) Alkaline Phosphatase 100 U/L (45-117) Troponin I 0.099 ng/ml (0-0.045) Pro-B-Type Natriuretic Peptide 6570 pg/ml (0-1800) Total Protein 6.7 gm/dl (6.4-8.2) Albumin 3.4 gm/dl (3.4-5.0) Globulin 3.3 gm/dl (2.5-4.0) Albumin/Globulin Ratio 1.0 (0.9-2) Urine Color YELLOW Urine Appearance CLEAR (CLEAR) Urine pH 5.0 (4.5-7.5) Urine Specific [place] 1.015 (1.000-1.030) Urine Protein NEG (NEG) Urine Glucose (UA) NEG (NEG) Urine Ketones NEG (NEG) Urine Occult Blood NEG (NEG) Urine Nitrite NEG (NEG) Urine Bilirubin NEG (NEG) Urine Urobilinogen NEG (NEG) Urine Leukocyte Esterase SMALL (NEG) Urine WBC (Auto) 5-10 /hpf (0-5) Urine RBC (Auto) 0-4 /hpf (0-4) Urine Hyaline Casts (Auto) 0 /lpf (0-5) Urine Epithelial Cells (Auto) 20-30 /lpf (0-5) Urine Bacteria (Auto) NEG (NEG) Activated Partial Thromboplast Time 42.0 SECONDS (21.0-31.0) Partial Thromboplastin Ratio 1.6 D-Dimer 1250 ug/L FEU (0-500) Venous Blood pH 7.29 (7.36-7.41) Venous Blood Partial Pressure CO2 83 mmHg (38.0-50.0) Venous Blood Partial Pressure O2 32 mmHg Venous Blood HCO3 39 mmol/L Venous Blood Oxygen Saturation < 60.0 % Venous Blood Base Excess 9.0 mmol/L Laboratory results per my review. Medications Administered Medications (Trade) Dose Ordered Sig/Arjun Route Start Time Stop Time Status Last Admin Dose Admin Aspirin (Aspirin Chew) 324 mg NOW STAT PO 03/06/17 15:27 03/06/17 15:29 DC 03/06/17 16:17 324 MG Furosemide (Lasix Inj) 40 mg STK-MED ONCE .ROUTE 03/06/17 16:14 03/06/17 16:15 DC 03/06/17 16:18 20 MG ECG Indication: SOB/dyspnea Rate (beats per minute): 94 Rhythm: atrial fibrillation Findings: T-wave inversion, other (right axis deviation) Comparison ECG Date: 12/05/2016 Change: no significant change ED Course ED COURSE: Vital signs were reviewed and showed hypoxia and hypertension. The patients medical record was reviewed The above diagnostic studies were performed and reviewed. ED treatments and interventions as stated above. 1347: The patient was evaluated in room B9. A complete history and physical examination was performed. 1442: I reassessed the patient. She is resting comfortably. 1527: Ordered Aspirin 324 mg PO 1531: Upon reevaluation, the patient is resting comfortably. I discussed my findings with the patient and she understands and agrees with the treatment plan. Based on the patients age, coexisting illnesses, exam and lab findings the decision to treat as an inpatient was made. The patient remained stable while under my care. The patient will be evaluated for further management. 1532: I reviewed the patient's case with Dr. Ronnie MARTINEZ. She will evaluate the patient for further management. 1545: Ordered Furosemide 20 mg/Syringe 2 ml @ 4 mls/min IV 1614: Ordered Furosemide 40 mg IV Medical Decision Differential diagnoses includes but is not limited to pneumonia, bronchitis, COPD/Asthma exacerbation, pneumothorax, pulmonary embolism, congestive heart failure, acute coronary syndrome. Medication Reconciliation: I attest that I have personally reviewed the patient' s current medication list. Blood pressure screening: Patient was found to have an elevated blood pressure but she is being evaluated for further management so she was not referred to her primary doctor for recheck and further treatment. Patient is an 86-year-old female referred in by PCP for hypoxia. She has been short of breath for the past several days. Son checked pulse ox at home and it was low 80s. Currently worse 3 L. Denies chest pain. EKG was nondiagnostic. CBC unremarkable. PH is 7.29. CO2 was elevated at 83. Troponin was elevated at 0.099. BNP was elevated at 6000. Exam shows JVD associated with pitting edema and right pleural effusion. I believe the symptoms are consistent with CHF. D-dimer was elevated but not pursued secondary to supratherapeutic INR. Patient was given a dose of Lasix and admitted to internal medicine on 4 L nasal cannula with O2 saturations in the 90s. Consults Time Called: 1530 Consulting Physician: Dr. Ronnie MARTINEZ Returned Call: 1532 I reviewed the patient's case with Dr. Ronnie MARTINEZ. She will evaluate the patient for further management. Impression Primary Impression: CHF (congestive heart failure) Additional Impressions: Hypoxia Elevated troponin Scribe Attestation The scribe's documentation has been prepared under my direction and personally reviewed by me in its entirety. I confirm that the note above accurately reflects all work, treatment, procedures, and medical decision making performed by me. Departure Information Dispostion Being Evaluated By Hospitalist Referrals No Doctor, Assigned (PCP) Patient Instructions My [facility] Problem Qualifiers Primary Impression: CHF (congestive heart failure) Congestive heart failure type: unspecified congestive heart failure type Congestive heart failure chronicity: acute on chronic Qualified Codes: I50.9 - Heart failure, unspecified
[2017-03-06] MEDS: ALBUT/IPRATROP 3MG/0.5MG NEB 3 ML VIAL INH SCH ×2 (18:14→20:21)
[2017-03-06 18:15] VITALS: PULSE 88; O2SAT 94
[2017-03-06 19:08] VITALS: BP 147/79; PULSE 75; TEMP 36.5; O2SAT 91; O2SAT 94
[2017-03-06 20:00] VITALS: O2SAT 94
[2017-03-06] MEDS: METOPROLOL TARTRATE 100 MG TAB PO SCH (20:08)
[2017-03-06] MEDS: ALPRAZOLAM 0.5 MG TAB PO SCH (20:08)
[2017-03-06] MEDS: CALCIUM 600MG + VIT D 400 IU TAB PO SCH (20:08)
[2017-03-06] MEDS: ATORVASTATIN 20 MG TAB PO SCH (20:08)
[2017-03-06 20:21] VITALS: PULSE 92; O2SAT 95
[2017-03-06] MEDS ORDERED: CALCIUM 600MG + VIT D 400 IU TAB PO SCH (21:00)
[2017-03-07] VITALS (17 sets, daily range): BP systolic 124–150; BP diastolic 53–80; PULSE 60–85; TEMP 36.3–37; O2SAT 81–97
[2017-03-07] MEDS: ALBUT/IPRATROP 3MG/0.5MG NEB 3 ML VIAL INH SCH ×4 (07:09→20:25)
[2017-03-07 07:33] LABS: INR 3.5 (0.9-1.1); PROTHROMBIN TIME (PATIENT) 39.7 SECONDS (9.0-12.0)
--- NOTE | 2017-03-07 07:51 | Clinical Documentation Query ---
CLINICAL DOCUMENTATION QUERY Dr. GANN, In your clinical opinion does this patient have: (x ) Chronic kidney disease, stage 2-3 ( ) Other explanation of clinical findings (Please Explain) ( ) Unable to determine (Please Define) ( ) Need to Discuss ( ) Not Agree The medical record reflects the following clinical findings, treatment, and risk factors. Clinical Indicators: 86 yo female presenting with acute diastolic CHF. Review of historical GFR shows range of 45.1-71.7 over the past 6 months. Treatment: monitor PRP's, treat comorbid diseases. Risk Factors: age, COPD, CHF, HTN, AAA, A fib, [place], CAD Please clarify and document your clinical opinion in the progress notes and discharge summary. Terms such as "probable", "suspected", "likely", "questionable", "possible", or "still to be ruled out" are acceptable. IF IN AGREEMENT, YOU MUST DOCUMENT ABOVE DIAGNOSTIC STATEMENT IN DAILY PROGRESS NOTES AND DISCHARGE SUMMARY. This document is not part of the patient's record. Thank You, Ciara Rios RN [phone]
--- NOTE | 2017-03-07 07:54 | Clinical Documentation Query ---
CLINICAL DOCUMENTATION QUERY Ms. SAPP, In your clinical opinion does this patient have: ( x ) Chronic kidney disease, stage 2-3 ( ) Other explanation of clinical findings (Please Explain) ( ) Unable to determine (Please Define) ( ) Need to Discuss ( ) Not Agree The medical record reflects the following clinical findings, treatment, and risk factors. Clinical Indicators: 86 yo female presenting with acute diastolic CHF. Review of historical GFR shows range of 45.1-71.7 over the past 6 months. Treatment: monitor PRP's, treat comorbid diseases. Risk Factors: age, COPD, CHF, HTN, AAA, A fib, [place], CAD Please clarify and document your clinical opinion in the progress notes and discharge summary. Terms such as "probable", "suspected", "likely", "questionable", "possible", or "still to be ruled out" are acceptable. IF IN AGREEMENT, YOU MUST DOCUMENT ABOVE DIAGNOSTIC STATEMENT IN DAILY PROGRESS NOTES AND DISCHARGE SUMMARY. This document is not part of the patient's record. Thank You, Ciara Rios RN [phone]
[2017-03-07] MEDS ORDERED: DILTIAZEM HCL 240 MG CAPCR PO SCH (09:00)
[2017-03-07] MEDS: ASPIRIN 81 MG ECTAB PO SCH (09:01)
[2017-03-07] MEDS: CALCIUM 600MG + VIT D 400 IU TAB PO SCH ×2 (09:01→19:54)
[2017-03-07] MEDS: MULTIVITAMIN TAB PO SCH (09:08)
[2017-03-07] MEDS: ALLOPURINOL 100 MG TAB PO SCH (09:09)
[2017-03-07] MEDS: ASCORBIC ACID 500 MG TAB PO SCH (09:09)
[2017-03-07] MEDS: METOPROLOL TARTRATE 100 MG TAB PO SCH (09:17)
[2017-03-07 11:52] LABS: CREATININE 0.88 mg/dl (0.60-1.20)
[2017-03-07 11:53] LABS: POTASSIUM 3.7 mmol/L (3.5-5.1)
[2017-03-07] MEDS: POTASSIUM CHLORIDE 20 MEQ TABCR PO SCH (12:03)
[2017-03-07 12:59] LABS: CALCIUM 9.1 mg/dl (8.5-10.1)
--- NOTE | 2017-03-07 14:19 | Hospitalist Progress Note ---
Hospitalist Progress Note Date of Service Mar 07, 2017. Subjective Pt evaluation today including: conversation w/ patient, conversation w/ family , physical exam, chart review, lab review, review of studies, review of inpatient medication list Patient seen and evaluated. Patient admitted yesterday with suspected CHF exacerbation. Son at bedside reports his mother cancels PCP appointments and was only getting Lasix intermittently as the plan was to have her seen by PCP for continuing dosing Son feels that she does look better but reports that she won't complain of SOB even though he can see she is having more SOB then normal. Patient verbalized no needs. He reports she is on 3L during the day and 2 L at night. Constitutional: No fever, No chills Eyes: No worsening of vision ENT: No nasal symptoms, No sore throat, No trouble swallowing Respiratory: No cough, No wheezing, No shortness of breath Cardiovascular: No chest pain, No palpitations Abdomen: + problem reported (lower abdominal hernia), No pain, No nausea, No vomiting, No diarrhea, No constipation Musculoskeletal: No swelling, No calf pain Medications Current Inpatient Medications Medications (Trade) Dose Ordered Sig/Arjun Route Start Time Stop Time Status Last Admin Dose Admin Acetaminophen (Tylenol Tab) 650 mg Q4H PRN PO 03/06/17 16:45 04/05/17 16:44 Al Hydrox/Mg Hydrox/Simethicone (Maalox Max Susp) 15 ml Q4H PRN PO 03/06/17 16:45 04/05/17 16:44 Magnesium Hydroxide (Milk Of Magnesia Susp) 30 ml Q12H PRN PO 03/06/17 16:45 04/05/17 16:44 Ondansetron HCl (Zofran Inj) 4 mg Q6H PRN IV 03/06/17 16:45 04/05/17 16:44 Nitroglycerin (Nitrostat Tab) 0.4 mg UD PRN SL 03/06/17 16:45 04/05/17 16:44 Morphine Sulfate (MoRPHine SULFATE INJ) 2 mg Q30M PRN IV 03/06/17 16:45 03/20/17 16:44 Polyethylene (Miralax Powder Packet) 17 gm DAILY PRN PO 03/06/17 16:45 04/05/17 16:44 Albuterol (Ventolin Hfa Inhaler) Give 1-2 puffs Q6 if SOB Q6H PRN INH 03/06/17 16:45 04/05/17 16:44 Allopurinol (Zyloprim Tab) 100 mg DAILY PO 03/07/17 09:00 04/06/17 08:59 03/07/17 09:09 100 MG Alprazolam (Xanax Tab) 0.5 mg HS PO 03/06/17 21:00 04/05/17 20:59 03/06/17 20:08 0.5 MG Ascorbic Acid (Vitamin C Tab) 500 mg DAILY PO 03/07/17 09:00 04/06/17 08:59 03/07/17 09:09 500 MG Aspirin (Ecotrin Tab) 81 mg QAM PO 03/07/17 09:00 04/06/17 08:59 03/07/17 09:01 81 MG Atorvastatin Calcium (Lipitor Tab) 20 mg HS PO 03/06/17 21:00 04/05/17 20:59 03/06/17 20:08 20 MG Diltiazem HCl (Cardizem Cd Cap) 240 mg DAILY PO 03/07/17 09:00 04/06/17 08:59 03/07/17 09:17 240 MG Metoprolol Tartrate (Lopressor Tab) 100 mg BID PO 03/06/17 21:00 04/05/17 20:59 03/07/17 09:17 100 MG Multivitamins (Multivitamin Tab) 1 tab DAILY PO 03/07/17 09:00 04/06/17 08:59 03/07/17 09:08 1 TAB Potassium Chloride (Klor-Con Tab) 20 meq DAILY PO 03/07/17 09:00 04/06/17 08:59 03/07/17 12:03 20 MEQ Albuterol/ Ipratropium (Duoneb) 3 ml QIDR INH 03/06/17 18:00 04/05/17 17:59 03/07/17 11:06 3 ML Calcium/Vitamin D (Caltrate Plus Tab) 1 tab BID PO 03/06/17 21:00 04/05/17 20:59 03/07/17 09:01 1 TAB Objective Vital Signs Date Time Temp Pulse Resp B/P (MAP) Pulse Ox O2 Delivery O2 Flow Rate FiO2 03/07/17 12:30 Nasal Cannula 3.0 03/07/17 11:38 37.0 73 18 150/75 (100) 97 03/07/17 11:15 97 Nasal Cannula 5.0 03/07/17 11:06 68 18 96 Nasal Cannula 5.0 03/07/17 09:16 81 03/07/17 09:04 68 127/53 (77) 03/07/17 08:10 36.4 76 22 149/66 (93) 91 Nasal Cannula 4.0 03/07/17 07:15 Nasal Cannula 3.0 03/07/17 07:11 73 18 91 Nasal Cannula 3.0 03/07/17 04:00 93 Nasal Cannula 4.5 03/07/17 02:49 36.6 69 20 132/69 (90) 93 Nasal Cannula 4.5 03/07/17 00:36 36.5 83 17 128/80 (96) 90 Nasal Cannula 3.0 03/07/17 00:01 91 Nasal Cannula 4.0 03/06/17 20:21 92 18 95 Nasal Cannula 3.0 03/06/17 20:00 94 Nasal Cannula 3.0 03/06/17 19:08 36.5 75 19 147/79 (101) 94 Nasal Cannula 4.0 03/06/17 18:15 88 18 94 Nasal Cannula 3.0 03/06/17 17:54 36.4 59 22 153/64 (93) 96 Nasal Cannula 4.0 03/06/17 17:35 36.5 70 22 151/84 96 03/06/17 17:05 70 96 03/06/17 16:44 36.4 59 22 153/64 90 Nasal Cannula 4.0 03/06/17 16:35 73 96 03/06/17 16:21 151/84 03/06/17 16:05 70 22 94 03/06/17 16:00 78 28 90 03/06/17 15:30 78 20 94 03/06/17 15:00 79 24 96 03/06/17 14:45 77 20 146/79 96 Nasal Cannula 4.0 Physical Exam General Appearance: no apparent distress, + thin Eyes: sclerae normal ENT: hearing grossly normal Neck: supple, no JVD, trachea midline Respiratory/Chest: normal breath sounds, no respiratory distress, no accessory muscle use, + decreased breath sounds, + crackles (L base) Cardiovascular: + irregularly irregular Abdomen: normal bowel sounds, non tender, soft, + pertinent finding (soft reducible hernia of mid-lower abdomen) Extremities: no pedal edema, no calf tenderness Neurologic/Psychiatric: alert Skin: normal color, warm/dry Laboratory Results Last 24 Hours Test 03/06/17 14:40 03/06/17 14:50 03/06/17 17:20 03/06/17 20:29 Urine Color YELLOW Urine Appearance CLEAR Urine pH 5.0 Urine Specific [place] 1.015 Urine Protein NEG Urine Glucose (UA) NEG Urine Ketones NEG Urine Occult Blood NEG Urine Nitrite NEG Urine Bilirubin NEG Urine Urobilinogen NEG Urine Leukocyte Esterase SMALL Urine WBC (Auto) 5-10 /hpf Urine RBC (Auto) 0-4 /hpf Urine Hyaline Casts (Auto) 0 /lpf Urine Epithelial Cells (Auto) 20-30 /lpf Urine Bacteria (Auto) NEG Prothrombin Time 40.8 SECONDS 41.9 SECONDS Prothromb Time International Ratio 3.6 3.7 Activated Partial Thromboplast Time 42.0 SECONDS Partial Thromboplastin Ratio 1.6 D-Dimer 1250 ug/L FEU Venous Blood pH 7.29 Venous Blood Partial Pressure CO2 83 mmHg Venous Blood Partial Pressure O2 32 mmHg Venous Blood HCO3 39 mmol/L Venous Blood Oxygen Saturation < 60.0 % Venous Blood Base Excess 9.0 mmol/L Troponin I 0.105 ng/ml Test 03/07/17 06:40 Prothrombin Time 39.7 SECONDS Prothromb Time International Ratio 3.5 Sodium Level 146 mmol/L Potassium Level 3.7 mmol/L Chloride Level 103 mmol/L Carbon Dioxide Level 37 mmol/L Anion Gap 6.0 mmol/L Blood Urea Nitrogen 23 mg/dl Creatinine 0.88 mg/dl Est Creatinine Clear Calc Drug Dose 35.1 ml/min Estimated GFR () 68.5 Estimated GFR (Non- 59.1 BUN/Creatinine Ratio 26.0 Random Glucose 88 mg/dl Calcium Level 9.1 mg/dl Troponin I 0.117 ng/ml Assessment and Plan 86 year old female with a PMH of CHF and COPD admitted to the hospital for a CHF exacerbation. This is likely due to poor compliance with lasix medication as patient has not been taking her doses regularly as she has been missing some of her doctors appointments. Acute Diastolic CHF: - Echo (November 2016) - low normal EF of 50-55% and diastolic dysfunction - Received Lasix 40 mg IV x 1 dose with less than 1 L diuresed. Will monitor for further dosing COPD without Exacerbation: - No wheezing on examination - Duonebs ARJUN and inhaler Atrial Fibrillation: Rate Controlled - Cardizem 240 mg daily and metoprolol 100 mg BID - episode of bradycardia and will hold per parameters Supratherapeutic INR: - Continue to hold Coumadin and assess INR - Home regimen 1 mg MWF and 2 mg TThSatSun Possible CKD Stage II-III: - Monitor with [facility] Code Status: Full w/out mechanical or cardioversion DVT prophylaxis: Supratherapeutic INR Disposition: - Home alone with caregivers x 10 hours and son with daily visits - PT/OT evaluations Continued [facility] stay due to: multiple IV medications needed Discharge planning: uncertain
[2017-03-07] MEDS: ALPRAZOLAM 0.5 MG TAB PO SCH (19:54)
[2017-03-07] MEDS: ATORVASTATIN 20 MG TAB PO SCH (19:54)
[2017-03-07] MEDS: METOPROLOL TARTRATE 50 MG TAB PO SCH (19:55)
[2017-03-08] VITALS (13 sets, daily range): BP systolic 110–151; BP diastolic 62–90; PULSE 62–98; TEMP 36.4–36.9; O2SAT 91–97
[2017-03-08 06:19] LABS: HEMATOCRIT 37.3 % (37-47); MEAN CELL VOLUME 105.7 fL (80-100); MEAN CORPUSCULAR HEMOGLOBIN 32.3 pg (25-34); MEAN CORPUSCULAR HGB CONC 30.6 g/dl (32-36); MEAN PLATELET VOLUME 10.3 fL (7.4-10.4); PLATELET COUNT 148 K/uL (130-400); RED BLOOD COUNT 3.53 M/uL (4.2-5.4); WHITE BLOOD COUNT 5.71 K/uL (4.8-10.8)
[2017-03-08 06:30] LABS: INR 2.3 (0.9-1.1); PROTHROMBIN TIME (PATIENT) 25.5 SECONDS (9.0-12.0)
[2017-03-08 06:59] LABS: BUN/CREATININE RATIO 23.7 (10-20); CALCIUM 9.5 mg/dl (8.5-10.1); CREATININE 1.1 mg/dl (0.60-1.20); POTASSIUM 4.4 mmol/L (3.5-5.1)
[2017-03-08] MEDS: ALBUT/IPRATROP 3MG/0.5MG NEB 3 ML VIAL INH SCH ×4 (07:32→19:24)
[2017-03-08] MEDS: CALCIUM 600MG + VIT D 400 IU TAB PO SCH ×2 (09:03→21:14)
[2017-03-08] MEDS: ASPIRIN 81 MG ECTAB PO SCH (09:03)
[2017-03-08] MEDS: ALLOPURINOL 100 MG TAB PO SCH (09:03)
[2017-03-08] MEDS: METOPROLOL TARTRATE 50 MG TAB PO SCH ×2 (09:04→21:14)
[2017-03-08] MEDS: MULTIVITAMIN TAB PO SCH (09:04)
[2017-03-08] MEDS: ASCORBIC ACID 500 MG TAB PO SCH (09:05)
[2017-03-08] MEDS: POTASSIUM CHLORIDE 20 MEQ TABCR PO SCH (09:05)
--- NOTE | 2017-03-08 13:23 | Hospitalist Progress Note ---
Hospitalist Progress Note Date of Service Mar 08, 2017. Subjective Pt evaluation today including: conversation w/ patient, conversation w/ family , physical exam, chart review, lab review, review of studies, review of inpatient medication list Patient seen and evaluated. Daughter at bedside. Patient pleasant and intermittently confused. Has good support at home with children and caregivers. Tele reviewed and no further bradycardic episodes with Diltiazem D/C'd and metoprolol decreased. Airflow improved with institution of steroids. Verbalizes no complaints at this time. Constitutional: No fever, No chills Respiratory: No shortness of breath Cardiovascular: No chest pain Abdomen: No pain, No nausea, No vomiting, No diarrhea, No constipation Musculoskeletal: No swelling, No calf pain Female : No dysuria Neurologic: + memory loss (chronic) Medications Current Inpatient Medications Medications (Trade) Dose Ordered Sig/Arjun Route Start Time Stop Time Status Last Admin Dose Admin Acetaminophen (Tylenol Tab) 650 mg Q4H PRN PO 03/06/17 16:45 04/05/17 16:44 03/07/17 19:54 650 MG Al Hydrox/Mg Hydrox/Simethicone (Maalox Max Susp) 15 ml Q4H PRN PO 03/06/17 16:45 04/05/17 16:44 Magnesium Hydroxide (Milk Of Magnesia Susp) 30 ml Q12H PRN PO 03/06/17 16:45 04/05/17 16:44 Ondansetron HCl (Zofran Inj) 4 mg Q6H PRN IV 03/06/17 16:45 04/05/17 16:44 Nitroglycerin (Nitrostat Tab) 0.4 mg UD PRN SL 03/06/17 16:45 04/05/17 16:44 Morphine Sulfate (MoRPHine SULFATE INJ) 2 mg Q30M PRN IV 03/06/17 16:45 03/20/17 16:44 Polyethylene (Miralax Powder Packet) 17 gm DAILY PRN PO 03/06/17 16:45 04/05/17 16:44 Albuterol (Ventolin Hfa Inhaler) Give 1-2 puffs Q6 if SOB Q6H PRN INH 03/06/17 16:45 04/05/17 16:44 Allopurinol (Zyloprim Tab) 100 mg DAILY PO 03/07/17 09:00 04/06/17 08:59 03/08/17 09:03 100 MG Alprazolam (Xanax Tab) 0.5 mg HS PO 03/06/17 21:00 04/05/17 20:59 03/07/17 19:54 0.5 MG Ascorbic Acid (Vitamin C Tab) 500 mg DAILY PO 03/07/17 09:00 04/06/17 08:59 03/08/17 09:05 500 MG Aspirin (Ecotrin Tab) 81 mg QAM PO 03/07/17 09:00 04/06/17 08:59 03/08/17 09:03 81 MG Atorvastatin Calcium (Lipitor Tab) 20 mg HS PO 03/06/17 21:00 04/05/17 20:59 03/07/17 19:54 20 MG Multivitamins (Multivitamin Tab) 1 tab DAILY PO 03/07/17 09:00 04/06/17 08:59 03/08/17 09:04 1 TAB Potassium Chloride (Klor-Con Tab) 20 meq DAILY PO 03/07/17 09:00 04/06/17 08:59 03/08/17 09:05 20 MEQ Albuterol/ Ipratropium (Duoneb) 3 ml QIDR INH 03/06/17 18:00 04/05/17 17:59 03/08/17 11:26 3 ML Calcium/Vitamin D (Caltrate Plus Tab) 1 tab BID PO 03/06/17 21:00 04/05/17 20:59 03/08/17 09:03 1 TAB Metoprolol Tartrate (Lopressor Tab) 50 mg BID PO 03/07/17 21:00 04/05/17 20:59 03/08/17 09:04 50 MG Prednisone (PredniSONE TAB) 20 mg QAM PO 03/08/17 09:00 04/07/17 08:59 03/08/17 09:03 20 MG Warfarin Sodium (Coumadin Tab) 4 mg DAILY@1600 PO 03/08/17 16:00 04/07/17 15:59 Furosemide (Lasix Tab) 20 mg QAM PO 03/09/17 09:00 04/08/17 08:59 Objective Vital Signs Date Time Temp Pulse Resp B/P (MAP) Pulse Ox O2 Delivery O2 Flow Rate FiO2 03/08/17 12:01 36.5 81 18 133/77 (95) 97 Nasal Cannula 2.0 03/08/17 12:00 Nasal Cannula 4.0 03/08/17 11:26 79 20 92 Nasal Cannula 4.0 03/08/17 08:00 Nasal Cannula 4.0 03/08/17 07:40 36.4 94 20 151/90 (110) 91 Nasal Cannula 4.0 03/08/17 07:32 62 20 91 Nasal Cannula 4.0 03/08/17 04:00 Nasal Cannula 4.0 03/08/17 03:48 36.5 82 18 110/62 (78) 92 Nasal Cannula 03/08/17 00:00 Nasal Cannula 4.0 03/07/17 23:50 36.3 85 18 148/71 (96) 93 Nasal Cannula 03/07/17 20:25 75 20 91 Nasal Cannula 4.0 03/07/17 20:00 Nasal Cannula 4.0 03/07/17 19:59 36.7 69 22 124/68 (86) 92 Nasal Cannula 4.0 03/07/17 16:07 36.7 60 20 135/66 (89) 92 Nasal Cannula 4.0 03/07/17 15:40 92 Nasal Cannula 4.0 03/07/17 15:35 63 18 81 Room Air Physical Exam General Appearance: no apparent distress, + thin Eyes: sclerae normal ENT: hearing grossly normal Neck: supple, no JVD, trachea midline Respiratory/Chest: lungs clear, normal breath sounds, no respiratory distress, no accessory muscle use, + pertinent finding (improve airflow quality throughout ) Cardiovascular: + irregularly irregular Abdomen: normal bowel sounds, non tender, soft, + pertinent finding (mid-lower abdominal hernia soft and reducible) Extremities: no pedal edema, no calf tenderness Neurologic/Psychiatric: alert, oriented x 3 Skin: normal color, warm/dry Laboratory Results Last 24 Hours Test 03/08/17 05:22 White Blood Count 5.71 K/uL Red Blood Count 3.53 M/uL Hemoglobin 11.4 g/dL Hematocrit 37.3 % Mean Corpuscular Volume 105.7 fL Mean Corpuscular Hemoglobin 32.3 pg Mean Corpuscular Hemoglobin Concent 30.6 g/dl RDW Standard Deviation 54.7 fL RDW Coefficient of Variation 14.1 % Platelet Count 148 K/uL Mean Platelet Volume 10.3 fL Prothrombin Time 25.5 SECONDS Prothromb Time International Ratio 2.3 Sodium Level 142 mmol/L Potassium Level 4.4 mmol/L Chloride Level 101 mmol/L Carbon Dioxide Level 34 mmol/L Anion Gap 7.0 mmol/L Blood Urea Nitrogen 26 mg/dl Creatinine 1.10 mg/dl Est Creatinine Clear Calc Drug Dose 28.5 ml/min Estimated GFR () 52.3 Estimated GFR (Non- 45.1 BUN/Creatinine Ratio 23.7 Random Glucose 149 mg/dl Calcium Level 9.5 mg/dl Assessment and Plan 86 year old female with a PMH of CHF and COPD admitted to the hospital for a CHF exacerbation. This is likely due to poor compliance with lasix medication as patient has not been taking her doses regularly as she has been missing some of her doctors appointments. 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
[2017-03-08] MEDS: WARFARIN SOD 4 MG TAB PO SCH (16:25)
[2017-03-08] MEDS: ATORVASTATIN 20 MG TAB PO SCH (21:13)
[2017-03-08] MEDS: ALPRAZOLAM 0.5 MG TAB PO SCH (21:14)
[2017-03-09] VITALS (7 sets, daily range): BP systolic 139–150; BP diastolic 80–88; PULSE 71–94; TEMP 36.3–36.6; O2SAT 91–98
[2017-03-09] MEDS: ALBUT/IPRATROP 3MG/0.5MG NEB 3 ML VIAL INH SCH ×4 (07:42→19:00)
[2017-03-09] MEDS: CALCIUM 600MG + VIT D 400 IU TAB PO SCH ×2 (07:47→19:48)
[2017-03-09] MEDS: MULTIVITAMIN TAB PO SCH (07:48)
[2017-03-09] MEDS: ALLOPURINOL 100 MG TAB PO SCH (07:48)
[2017-03-09] MEDS: POTASSIUM CHLORIDE 20 MEQ TABCR PO SCH (07:48)
[2017-03-09] MEDS: ASPIRIN 81 MG ECTAB PO SCH (07:48)
[2017-03-09] MEDS: ASCORBIC ACID 500 MG TAB PO SCH (07:49)
[2017-03-09] MEDS: METOPROLOL TARTRATE 50 MG TAB PO SCH ×2 (07:49→19:47)
[2017-03-09] MEDS: FUROSEMIDE 20 MG TAB PO SCH (07:49)
[2017-03-09 08:12] LABS: INR 2.4 (0.9-1.1); PROTHROMBIN TIME (PATIENT) 26.5 SECONDS (9.0-12.0)
[2017-03-09] MEDS ORDERED: METOPROLOL TARTRATE 50 MG TAB PO STA (09:08)
--- NOTE | 2017-03-09 11:48 | Hospitalist Progress Note ---
Hospitalist Progress Note Date of Service Mar 09, 2017. Subjective Pt evaluation today including: conversation w/ patient, conversation w/ family , physical exam, chart review, lab review, review of studies, review of inpatient medication list Patient seen and evaluated. Appears to have more energy compared to previous days however looks physically fatigued. [facility] [place] [facility] med/surg last night and did not sleep well. She continues to be pleasantly confused. Son and daughter at bedside and updated on the plan. Patient continues to say she feels fine but did state she still feels some SOB. Constitutional: + fatigue, No fever, No chills Eyes: No worsening of vision ENT: No nasal symptoms Respiratory: + dyspnea on exertion, + dyspnea at rest, No cough Cardiovascular: No chest pain Abdomen: No pain, No nausea, No vomiting, No diarrhea, No constipation Musculoskeletal: No swelling, No calf pain Female : No dysuria Medications Current Inpatient Medications Medications (Trade) Dose Ordered Sig/Arjun Route Start Time Stop Time Status Last Admin Dose Admin Acetaminophen (Tylenol Tab) 650 mg Q4H PRN PO 03/06/17 16:45 04/05/17 16:44 03/07/17 19:54 650 MG Al Hydrox/Mg Hydrox/Simethicone (Maalox Max Susp) 15 ml Q4H PRN PO 03/06/17 16:45 04/05/17 16:44 Magnesium Hydroxide (Milk Of Magnesia Susp) 30 ml Q12H PRN PO 03/06/17 16:45 04/05/17 16:44 Ondansetron HCl (Zofran Inj) 4 mg Q6H PRN IV 03/06/17 16:45 04/05/17 16:44 Nitroglycerin (Nitrostat Tab) 0.4 mg UD PRN SL 03/06/17 16:45 04/05/17 16:44 Morphine Sulfate (MoRPHine SULFATE INJ) 2 mg Q30M PRN IV 03/06/17 16:45 03/20/17 16:44 Polyethylene (Miralax Powder Packet) 17 gm DAILY PRN PO 03/06/17 16:45 04/05/17 16:44 Albuterol (Ventolin Hfa Inhaler) Give 1-2 puffs Q6 if SOB Q6H PRN INH 03/06/17 16:45 04/05/17 16:44 Allopurinol (Zyloprim Tab) 100 mg DAILY PO 03/07/17 09:00 04/06/17 08:59 03/09/17 07:48 100 MG Alprazolam (Xanax Tab) 0.5 mg HS PO 03/06/17 21:00 04/05/17 20:59 03/08/17 21:14 0.5 MG Ascorbic Acid (Vitamin C Tab) 500 mg DAILY PO 03/07/17 09:00 04/06/17 08:59 03/09/17 07:49 500 MG Aspirin (Ecotrin Tab) 81 mg QAM PO 03/07/17 09:00 04/06/17 08:59 03/09/17 07:48 81 MG Atorvastatin Calcium (Lipitor Tab) 20 mg HS PO 03/06/17 21:00 04/05/17 20:59 03/08/17 21:13 20 MG Multivitamins (Multivitamin Tab) 1 tab DAILY PO 03/07/17 09:00 04/06/17 08:59 03/09/17 07:48 1 TAB Potassium Chloride (Klor-Con Tab) 20 meq DAILY PO 03/07/17 09:00 04/06/17 08:59 03/09/17 07:48 20 MEQ Albuterol/ Ipratropium (Duoneb) 3 ml QIDR INH 03/06/17 18:00 04/05/17 17:59 03/09/17 11:12 3 ML Calcium/Vitamin D (Caltrate Plus Tab) 1 tab BID PO 03/06/17 21:00 04/05/17 20:59 03/09/17 07:47 1 TAB Prednisone (PredniSONE TAB) 20 mg QAM PO 03/08/17 09:00 04/07/17 08:59 03/09/17 07:49 20 MG Warfarin Sodium (Coumadin Tab) 4 mg DAILY@1600 PO 03/08/17 16:00 04/07/17 15:59 03/08/17 16:25 4 MG Furosemide (Lasix Tab) 20 mg QAM PO 03/09/17 08:00 04/08/17 08:59 03/09/17 07:49 20 MG Metoprolol Tartrate (Lopressor Tab) 100 mg BID PO 03/09/17 20:00 04/05/17 20:59 Objective Vital Signs Date Time Temp Pulse Resp B/P (MAP) Pulse Ox O2 Delivery O2 Flow Rate FiO2 03/09/17 11:18 78 18 92 Nasal Cannula 3.0 03/09/17 08:00 Nasal Cannula 3.0 03/09/17 07:55 36.3 94 20 150/88 (108) 98 Nasal Cannula 3.0 03/09/17 07:48 88 18 96 Nasal Cannula 3.0 03/09/17 00:15 95 Nasal Cannula 3.0 03/08/17 23:37 36.4 98 18 131/87 (102) 93 Nasal Cannula 3.0 03/08/17 19:24 82 18 95 Nasal Cannula 3.0 03/08/17 16:00 Nasal Cannula 3.0 03/08/17 15:38 36.9 68 18 121/68 (85) 93 Nasal Cannula 3.0 03/08/17 14:38 36.6 79 18 95 3.0 03/08/17 14:37 77 18 96 Nasal Cannula 3.0 03/08/17 14:02 36.6 79 18 113/74 (87) 95 Nasal Cannula 3.0 03/08/17 13:26 36.5 81 18 97 3.0 03/08/17 12:01 36.5 81 18 133/77 (95) 97 Nasal Cannula 3.0 03/08/17 12:00 Nasal Cannula 4.0 Physical Exam General Appearance: no apparent distress, + thin, + pertinent finding (looks physically fatigued) Eyes: sclerae normal ENT: hearing grossly normal Neck: supple, no JVD, trachea midline Respiratory/Chest: lungs clear, normal breath sounds, no respiratory distress, no accessory muscle use, + pertinent finding (continues to have improved airflow ) Cardiovascular: + irregularly irregular Abdomen: normal bowel sounds, non tender, soft Extremities: no pedal edema, no calf tenderness Neurologic/Psychiatric: alert Skin: normal color, warm/dry Laboratory Results Last 24 Hours Test 03/09/17 07:46 Prothrombin Time 26.5 SECONDS Prothromb Time International Ratio 2.4 Assessment and Plan 86 year old female with a PMH of CHF and COPD admitted to the hospital for a CHF exacerbation. This is likely due to poor compliance with lasix medication as patient has not been taking her doses regularly as she has been missing some of her doctors appointments. 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
[2017-03-09] MEDS: WARFARIN SOD 4 MG TAB PO SCH (16:16)
[2017-03-09] MEDS: ATORVASTATIN 20 MG TAB PO SCH (19:47)
[2017-03-09] MEDS: ALPRAZOLAM 0.5 MG TAB PO SCH (21:38)
[2017-03-10 00:14] VITALS: BP 153/92; PULSE 97; TEMP 36.8; O2SAT 94
[2017-03-10] MEDS: ALBUT/IPRATROP 3MG/0.5MG NEB 3 ML VIAL INH SCH ×2 (07:10→11:09)
[2017-03-10 07:11] VITALS: PULSE 90; O2SAT 95
[2017-03-10 07:18] VITALS: BP 160/105; PULSE 94; TEMP 36.7; O2SAT 95
[2017-03-10 07:44] LABS: INR 3.3 (0.9-1.1); PROTHROMBIN TIME (PATIENT) 36.8 SECONDS (9.0-12.0)
[2017-03-10] MEDS: ALLOPURINOL 100 MG TAB PO SCH (08:33)
[2017-03-10] MEDS: METOPROLOL TARTRATE 50 MG TAB PO SCH (08:33)
[2017-03-10] MEDS: ASCORBIC ACID 500 MG TAB PO SCH (08:33)
[2017-03-10] MEDS: CALCIUM 600MG + VIT D 400 IU TAB PO SCH (08:34)
[2017-03-10] MEDS: ASPIRIN 81 MG ECTAB PO SCH (08:34)
[2017-03-10] MEDS: MULTIVITAMIN TAB PO SCH (08:34)
[2017-03-10] MEDS: FUROSEMIDE 20 MG TAB PO SCH (08:34)
[2017-03-10] MEDS: POTASSIUM CHLORIDE 20 MEQ TABCR PO SCH (08:34)
[2017-03-10 11:10] VITALS: PULSE 67; O2SAT 95
[2017-03-10] MEDS ORDERED: CMD3 PO (13:21)
[2017-03-10] MEDS ORDERED: LSX20 PO (13:21)
[2017-03-10] MEDS ORDERED: PRD20 PO (13:22)
--- NOTE | 2017-03-10 13:29 | Discharge Instructions ---
Discharge Instructions Date of Service Mar 10, 2017. Admission Reason for Admission: Shortness Of Breath On Exertion Discharge Discharge Diagnosis / Problem: Acute on chronic hypoxia, mild diastolic heart failure, COPD exacerbation Discharge Goals Goal(s): Improve function, Improve disease control, Diagnostic testing (lab work) Activity Recommendations Activity Limitations: resume your previous activity Lifting Limitations: none Exercise/Sports Limitations: as tolerated Shower/Bathe: no limitations Driving or Machine Use: no limitations . Instructions / Follow-Up Instructions / Follow-Up Medications: - LASIX: recommend that you take 20mg daily now instead of twice a week - PREDNISONE: only one more dose needed, 20mg tomorrow AM - COUMADIN: dose reduced to 3mg daily since your INR was elevated on admission on 4mg and went back up to above 3 when 4mg resumed no Coumadin today, start 3mg tomorrow 03/11 - DILTIAZEM: please note that this medication is STOPPED due to bradycardia ( slow heart rate) when you were here Acute on chronic hypoxic respiratory failure: due to combination of COPD exacerbation as well as diastolic heart failure with pulmonary edema treated with Lasix and Prednisone and inhalers, improved, back to home dose of oxygen recommend return home, will now take Lasix every day, one more dose of Prednisone needed Atrial fibrillation: when you were on telemetry your heart rate was in the 40-50 's consistently, for this reason, your Diltiazem was stopped continue metoprolol at 100mg twice a day continue Coumadin for anticoagulation, but now at 3mg daily since your INR was above 3 on the 4mg dose Labs: please get a BMP and INR on 03/13, home nursing can draw these, results to your primary care doctor Dr. Gomez FOLLOW UP - [facility] [place] Cardiology Qing Solomon PA-C on MondayMarch 20 at 11:15 am. - please call Dr. Gomez's office for an appointment at the end of next week Call 911 and go to the Emergency Room if: * You have tightness or pain in your chest that does not go away with rest or Nitroglycerin * You are very short of breath even with rest Call your doctor if any of the following symptoms or problems start or get worse: * Shortness of breath or difficulty breathing * Wake up at night short of breath * Chest pain * Cough * Swelling of your hands, fee, or legs * More fatigued or tired with your normal activity * Palpitations - sudden fast heart beats WEIGHT * Weigh yourself every morning after using the bathroom. * Use the same scale. * Wear the same amount of clothing. * Write your weight down on your chart. * Call your doctor if you gain more than 2-3 pounds in 1-2 days. MEDICATIONS * Use this discharge instruction sheet for instructions. * Take your medications at the time your doctor ordered. * Do not skip a dose of your medicines. * If you miss a dose of medicine, take as soon as possible, but DO NOT DOUBLE A DOSE. * Read your medicine information when you get home. * Know all of the side effects of your medicine. * Call your doctor's office if you have any side effects. * Be sure all of your doctors know what medicine and herbs you take (including cold, flu, and herbal medicine). * Pain Medicine: If you do not get relief from your pain, please call your doctor for help. Take the following with you to your follow-up doctor appointments: * Weight Chart * Medication List * List of questions Do not drink excessive alcohol, beer or wine. Current Hospital Diet Patient's current hospital diet: Low Sodium Diet (2gm Na) Discharge Diet Recommended Diet: Low Sodium Diet (2gm Na) Fluid Restriction: 1500 ml (6 cups) Pending Studies Studies pending at discharge: no Medical Emergencies . Who to Call and When: Medical Emergencies: If at any time you feel your situation is an emergency, please call 911 immediately. . Non-Emergent Contact Non-Emergency issues call your: Primary Care Provider Call Non-Emergent contact if: you have any medication questions . . "Provider Documentation" section prepared by Brent Lemus. . VTE Core Measure Inpt VTE Proph given/why not?: Warfarin (Coumadin) [place] Drug Monitoring Program Search Results: no issues identified
[2017-03-10 13:45] VITALS: BP 160/105; PULSE 67; TEMP 36.7; O2SAT 95
--- NOTE | 2017-03-11 08:26 | Discharge Summary ---
Discharge Summary Date of Service Mar 11, 2017. Discharge Summary Admission Date: Mar 06, 2017 at 16:48 Discharge Date: Mar 10, 2017 Discharge Disposition: Home with services Principal Diagnosis: Acute on chronic hypoxic respiratory failure Problems/Secondary Diagnoses: Acute on chronic diastolic heart failure COPD exacerbation Atrial fibrillation with bradycardia Chronic anticoagulation, supratherapeutic INR Immunizations: Have You Had Influenza Vaccine: Yes History of Tetanus Vaccine?: Yes History of Pneumococcal: Yes Pneumococcal Date: Jun 11, 2010 History of Hepatitis B Vaccine: No Procedures: none Consultations: none Medication Reconciliation New Medications: Warfarin Sod (Coumadin) 3 Mg Tab 3 MG PO DAILY for 30 Days, #30 TABS 3 Refills Furosemide (Furosemide) 20 Mg Tab 20 MG PO QAM, #30 TAB 3 Refills Prednisone (Prednisone) 20 Mg Tab 20 MG PO QAM, #1 TAB 0 Refills Continued Medications: Albuterol Hfa (Ventolin Hfa) 200 Puffs/48022 Mcg Aers 1-2 PUFFS INH Q6H PRN for SOB/Wheezing, #1 INHALER Allopurinol (Allopurinol) 100 Mg Tab 100 MG PO DAILY Alprazolam (Xanax) 0.5 Mg Tab 0.5 MG PO HS Ascorbic Acid (Vitamin C) 500 Mg Tab 500 MG PO DAILY Aspirin (Aspirin Ec) 81 Mg Tab 81 MG PO QAM Atorvastatin (Lipitor) 20 Mg Tab 20 MG PO HS Calcium Carbonate (Calcium) 600 Mg Tab 600 MG PO BID Metoprolol Tartrate (Lopressor) (Lopressor) 100 Mg Tab 100 MG PO BID Multivitamin (Multivitamin) Tab 1 TAB PO DAILY, TAB Nitroglycerin (Nitrostat) 0.4 Mg Tab 0.4 MG UT PRN, BTL Potassium Ext Rel (Klor-Con) 20 Meq Tabcr 20 MEQ PO DAILY Discontinued Medications: Diltiazem Hcl (Diltiazem Cd) 240 Mg Capcr 240 MG PO DAILY Furosemide (Lasix) 20 Mg Tab 20 MG PO 2XWK TAKE 1 TABLET MONDAY AND MONDAY, THEN NEEDED IF A 3 POUND WEIGHT GAIN IN A DAY OR NOTICABLE SWELLING IN THE ANKLES. Warfarin Sodium (Coumadin) 2 Mg Tab 4 MG PO DAILY TWO 2MG TABLETS DAILY. Discharge Exam Patient feeling well the day of discharge, no specific complaints, her breathing was felt to be at baseline. Long discussion with the patient as well as her son and daughter at the bedside. Went over all the medications changes... Stopped diltiazem, decreased dose of Coumadin to 3mg, changed Lasix to 20mg daily, one more dose of Prednisone the day after discharge. All questions answered and they voiced understanding of the plan. patient was eating well, urinating, moving bowels and ambulating at baseline. Review of Systems: Constitutional: No fever, No chills, No sweats, No weight loss, No weakness , No fatigue, No problem reported Eyes: No worsening of vision, No eye pain, No redness, No discharge, No diplopia, No problem reported ENT: No hearing loss, No unusual epistaxis, No nasal symptoms, No sore throat, No tinnitus, No dental problems, No trouble swallowing, No problem reported Respiratory: + dyspnea on exertion (chronic), No cough, No sputum, No wheezing, No shortness of breath, No dyspnea at rest, No hemoptysis, No problem reported Cardiovascular: No chest pain, No orthopnea, No PND, No edema, No claudication, No palpitations, No problem reported Abdomen: No pain, No nausea, No vomiting, No diarrhea, No constipation, No GI bleeding, No problem reported Musculoskeletal: No joint pain, No muscle pain, No swelling, No calf pain, No problem reported Genitourinary - Female: No dysuria, No urinary frequency, No urinary urgency , No urinary incontinence Neurologic: + weakness, + balance problems, No memory loss, No paralysis, No numbness/tingling, No vertigo, No problem reported Endocrine: No fatigue, No excessive thirst, No excessive urination, No problem reported Hematologic / Lymphatic: No abnormal bleeding/bruising, No clotting problems , No swollen lymph nodes, No night sweats, No problem reported Integumentary: No rash, No itch, No new/changing skin lesions, No color change, No bleeding, No problem reported Physical Exam: General Appearance: no apparent distress, + thin Eyes: normal inspection, EOMI, sclerae normal ENT: normal ENT inspection, hearing grossly normal, pharynx normal Neck: supple, no adenopathy, no JVD, trachea midline Respiratory/Chest: chest non-tender, lungs clear, no respiratory distress, no accessory muscle use, + decreased breath sounds (baseline, overall moving more air compared to time of admission) Cardiovascular: no edema, no gallop, no JVD, no murmur, normal peripheral pulses, + irregularly irregular Abdomen / GI: normal bowel sounds, non tender, soft, no organomegaly Extremities: normal inspection, no calf tenderness, normal capillary refill , no pedal edema, normal range of motion Neurologic/Psychiatric: grant coordinator II-XII nml as tested, no motor/sensory deficits , alert, normal mood/affect, normal reflexes, oriented x 3 Skin: + pertinent finding (venous stasis changes bilaterally) Lymphatic: no adenopathy Hospital Course 86 year old female with a PMH of diastolic heart failure and COPD and chronic hypoxia, admitted to the hospital for acute worsening of her hypoxia attributed to heart failure and COPD exacerbation Mild Acute on chronic Diastolic heart failure: RESOLVED - Echo (November 2016) - low normal EF of 50-55% and diastolic dysfunction - no peripheral edema or pulmonary edema on exam, she appears euvolemic - recommended that she change her Lasix to 20mg daily instead of 2x a week to promote compliance, she and family agreed with plan COPD with Mild Exacerbation: nearly resolved - No wheezing on examination and much better air flow in all lung nicholson - received 4 doses of Prednisone 20mg, will give an additional dose the day after discharge to complete a 5 day course - [facility] and inhaler Atrial Fibrillation: - chronic, while on telemetry she had bradycardia in the 40-50's - no symptoms but perhaps bradycardia contributing to her weakness, dyspnea on exertion - stopped Diltiazem 240mg daily and reduced metoprolol to 50mg BID - the following day her HR was improved, in the 80-90's at rest, decided to increase metoprolol back to 100mg BID - will d/c on metoprolol 100mg BID and continue to hold Diltiazem - follow up with cardiology in 10 days, appointment scheduled Supratherapeutic INR: resolved with holding Coumadin - Continue Coumadin and monitor INR - needs to follow up with coagulation clinic, reported dose was 4mg daily and this was reduced to 3mg daily CKD Stage II-III: STABLE - Monitor with [facility] Code Status: Full w/out mechanical or cardioversion DVT prophylaxis: Coumadin Disposition: - home with home health and home PT - son lives in same apartment complex, takes care of medications - caregivers from 2030 to 630 at night Total Time Spent: Greater than 30 minutes This includes examination of the patient, discharge planning, medication reconciliation, and communication with other providers. Discharge Instructions Please refer to the electronic Patient Visit Report (Discharge Instructions) for additional information. Follow-Up [facility] [place] Cardiology Qing Solomon PA-C on MondayMarch 20 at 11:[address] Gomez in one week Coagulation clinic as previously scheduled Additional Copies To Qing Solomon .KIMO; Nathaniel Gomez M.D.
== END 2017-03-10 14:05 | disposition home health service (06) | DRG 291 ==
LOC: C.EDB 13:35 → C.2T 16:48 → ENRESERV 17:07 → C.MS4W 03-08 13:54
PROVIDERS: ADMIT Surgery; ATTEND Internal Medicine
DX: I13.0 Hypertensive heart and chronic kidney disease with heart failure and stage 1 through stage 4 chronic kidney disease, or unspecified chronic kidney disease (principal); J96.21 Acute and chronic respiratory failure with hypoxia; I50.33 Acute on chronic diastolic (congestive) heart failure; J44.1 Chronic obstructive pulmonary disease with (acute) exacerbation; N18.3 Chronic kidney disease, stage 3 (moderate); I48.2 Chronic atrial fibrillation; R41.3 Other amnesia; Z91.14 Patient's other noncompliance with medication regimen; M10.9 Gout, unspecified; R00.1 Bradycardia, unspecified; E78.5 Hyperlipidemia, unspecified; F41.9 Anxiety disorder, unspecified; I25.2 Old myocardial infarction; I25.10 Atherosclerotic heart disease of native coronary artery without angina pectoris; Z95.1 Presence of aortocoronary bypass graft; Z87.891 Personal history of nicotine dependence; Z82.49 Family history of ischemic heart disease and other diseases of the circulatory system; Z88.0 Allergy status to penicillin; Z79.01 Long term (current) use of anticoagulants; Z79.82 Long term (current) use of aspirin; Z79.899 Other long term (current) drug therapy

== ENCOUNTER → 2017-03-16 | Outpatient (CLI) | payer OTHER, BC ==
[~2017-03-16] MED LIST changes: +ALL100 PO; +ALPR-411 PO; -ATV5X PO; +CMD3 PO; -DLTCD/240 PO; +FURO-85 PO; +LSX20 PO; -LSX40 PO; +MULT-506 PO; -MULT-513 PO; +NTRGSL/4 UT; +PRD20 PO; +VNTHFA/IN INH; -WARF2TAB PO; +WARF3TAB PO
[2017-03-16 12:20] LABS: BLOOD UREA NITROGEN 23 mg/dl (7-18); BUN/CREATININE RATIO 22.8 (10-20); CARBON DIOXIDE 34 mmol/L (21-32); CHLORIDE 102 mmol/L (98-107); GLUCOSE 106 mg/dl (70-99); SODIUM 141 mmol/L (136-145)
--- NOTE | 2017-03-21 08:02 | CODING QUERY NO DIAGNOSIS ---
TREATMENT RENDERED WITHOUT A DIAGNOSIS To promote full compliance with coding requirements relating to patient care, physician participation is requested in all cases of date pitter uncertainty. Please assist us with providing a diagnosis/symptom for the test(s) below: A diagnosis/symptom was not documented on your Order. A valid diagnosis/symptom is required to bill all insurances. Please remember that we are unable to code a diagnosis of rule out, probable, possible, questionable, or suspected. Tests that require a diagnosis: DOS 03/16 * PRP DIAGNOSIS: Provider Signature: Date: Thank you Robyn Mcneill Health Information Management Once completed, please kindly fax back to [phone] For questions please call [phone]
== END | disposition home or self-care (01) ==
LOC: C.LABSPEC 11:00
PROVIDERS: ATTEND Internal Medicine Cardiovascular Disease
DX: I50.9 Heart failure, unspecified (principal)

== ENCOUNTER 2017-04-01 14:29 | Inpatient (IN) | payer OTHER, BC ==
[~2017-04-01] VITALS: Ht 157.5 cm; Wt 49.1 kg
[~2017-04-01 14:29] MED LIST changes: -FURO-85 PO; -WARF3TAB PO
[2017-04-01] MEDS ORDERED: WARF3TAB PO (15:23)
[2017-04-01] MEDS ORDERED: FURO-85 PO (15:23)
--- NOTE | 2017-04-01 15:38 | DIAGNOSTIC IMAGING REPORT ---
CHEST ONE VIEW PORTABLE CLINICAL HISTORY: Shortness of breath. Edema. COMPARISON STUDY: Chest radiograph March 06, 2017. FINDINGS: Endovascular aortoiliac stent graft is incidentally noted. Moderate cardiomegaly is unchanged. There is no pneumothorax. There is no radiographic evidence of pulmonary edema. A moderate right pleural effusion has slightly decreased since prior exam of March 06, 2017. IMPRESSION: 1. Slight decrease in size of a moderate right pleural effusion since exam of March 06, 2017. No evidence of pulmonary edema. 2. Stable cardiomegaly. Electronically signed by: Neal Campos M.D. 04/01/2017 3:37 PM Dictated Date/Time: 04/01/2017 3:34 PM
[2017-04-01 15:46] LABS: BASO % 0.2 %; BASO ABS # 0.01 K/uL (0-0.2); COMPLETE YES; HEMATOCRIT 37.7 % (37-47); IG% 0.3 %; LYMPH % 14.4 %; LYMPH ABS # 0.95 K/uL (1.2-3.4); MEAN CELL VOLUME 104.1 fL (80-100); MEAN CORPUSCULAR HEMOGLOBIN 33.1 pg (25-34); MEAN CORPUSCULAR HGB CONC 31.8 g/dl (32-36); MEAN PLATELET VOLUME 10.3 fL (7.4-10.4); MONO % 13.5 %; NEUT % 69.6 %; PLATELET COUNT 171 K/uL (130-400); RED BLOOD COUNT 3.62 M/uL (4.2-5.4)
[2017-04-01 16:08] LABS: BUN/CREATININE RATIO 25.9 (10-20); CALCIUM 8.7 mg/dl (8.5-10.1); CREATININE 1.2 mg/dl (0.60-1.20); MAGNESIUM 2.6 mg/dl (1.8-2.4); POTASSIUM 4.5 mmol/L (3.5-5.1)
[2017-04-01 16:18] LABS: ALB/GLOB RATIO 1.1 (0.9-2)
[2017-04-01 16:26] LABS: INR 1.8 (0.9-1.1); PROTHROMBIN TIME (PATIENT) 20.3 SECONDS (9.0-12.0)
[2017-04-01] MEDS ORDERED: ASPIRIN/ALUM/MAGNES/CAL CARB 325 MG TAB PO STA (16:30)
[2017-04-01] MEDS ORDERED: FUROSEMIDE 40 MG/4 ML VIAL IV STA (16:30)
[2017-04-01 17:00] VITALS: O2SAT 100; Ht 157.5 cm; Wt 49.1 kg
[2017-04-01] MEDS ORDERED: ALBUTEROL HFA 8 GM INHALER INH PRN (18:00)
[2017-04-01] MEDS ORDERED: NITROGLYCERIN 0.4 MG SL PER TAB CHARGE SL PRN (18:00)
[2017-04-01] MEDS ORDERED: ACETAMINOPHEN 325 MG TAB PO PRN (18:00)
[2017-04-01] MEDS ORDERED: ALPRAZOLAM 0.5 MG TAB PO PRN (18:00)
--- NOTE | 2017-04-01 18:19 | History and Physical ---
History & Physical Date & Time of Service: Apr 01, 2017 at 17:16 Chief Complaint: Edema, Chf Primary Care Physician: Nathaniel Gomez M.D. History of Present Illness Source: patient, family This patient is an 86-year-old female with a history of COPD, chronic respiratory failure, atrial fibrillation on Coumadin, chronic diastolic CHF, severe peripheral arterial disease, pulmonary hypertension, prediabetes, hyperlipidemia, hypertension, and moderate mitral valve regurgitation, who presents to the ER with progressively worsening shortness of breath and lower extremity edema over the last several days. Her legs really got much more edematous in the last 24 hours as per her son. They have a pulse ox at home and normally she reads 98% on 3 L, however this morning she was 93% and her son increased her to 4 L prior to bringing her to the ER. She was recently discharged from the hospital 3 weeks ago for acute on chronic hypoxemic respiratory failure as a result of a COPD exacerbation and CHF exacerbation. At that time, she was increased from when necessary Lasix to taking Lasix 20 mg once daily, and her diltiazem was discontinued. She does report that she's continues to add salt to her foods, but her son reports she barely drinks any fluids at all. She does not weigh herself daily. Her pro BNP was significantly elevated at 11,000, her troponin was mildly elevated at 0.113, and her chest x-ray was consistent with signs of acute CHF with a right-sided pleural effusion which was actually improved from previous. She was given Lasix 40 mg IV 1 in the ER as well as an aspirin because of her positive troponin, however she denied any chest pain. She is quite anxious and has been having panic attacks and what sounds like paroxysmal nocturnal dyspnea for the last 1-2 nights. She will be admitted to the telemetry unit for acute on chronic diastolic CHF with acute on chronic hypoxemic respiratory failure. Past Medical/Surgical History PMH: COPD Chronic respiratory failure Pulmonary hypertension Paroxysmal atrial fibrillation on Coumadin Chronic diastolic CHF Hyperlipidemia Hypertension Moderate mitral valve regurgitation Moderate-severe tricuspid regurgitation Severe peripheral arterial disease Prediabetes Anxiety and insomnia PSH: AAA repair Iliac stent placement Hysterectomy-for noncancerous reasons Family History Heart disease Social History Smoking Status: Former Smoker Drug Use: none Marital Status: Housing status: lives alone Occupational Status: retired Immunizations History of Influenza Vaccine: Yes History of Tetanus Vaccine?: Yes History of Pneumococcal: Yes Pneumococcal Date: Jun 11, 2010 History of Hepatitis B Vaccine: No Multi-Drug Resistant Organisms History of MDRO: No Allergies Coded Allergies: Penicillins (Verified Allergy, Unknown, RASH, 04/01/17) Home Medications Scheduled Alprazolam (Xanax), 0.5 MG PO HS Ascorbic Acid (Vitamin C), 500 MG PO DAILY Aspirin (Aspirin Ec), 81 MG PO QAM Atorvastatin (Lipitor), 20 MG PO HS Calcium Carbonate (Calcium), 600 MG PO BID Furosemide (Lasix), 20 MG PO QAM Metoprolol Tartrate (Lopressor) (Lopressor), 100 MG PO BID Multivitamin (Multivitamin), 1 TAB PO DAILY Nitroglycerin (Nitrostat), 0.4 MG UT PRN Potassium Ext Rel (Klor-Con), 20 MEQ PO DAILY Warfarin Sodium (Coumadin), 3 MG PO DAILY Scheduled PRN Albuterol Hfa (Ventolin Hfa), 1-2 PUFFS INH Q6H PRN for SOB/Wheezing Review of Systems Constitutional: No fever, No chills Eyes: No problem reported ENT: No problem reported Respiratory: + shortness of breath, + dyspnea on exertion Cardiovascular: + orthopnea, + PND, + edema, No chest pain Abdomen: No pain, No nausea, No vomiting Musculoskeletal: No problem reported Genitourinary - Female: No problem reported Neurologic: No problem reported Psychiatric: + anxiety, + insomnia Endocrine: No problem reported Hematologic / Lymphatic: No problem reported Integumentary: No problem reported Allergic / Immunologic: No problem reported Physical Exam Vital Signs Date Time Temp Pulse Resp B/P (MAP) Pulse Ox O2 Delivery O2 Flow Rate FiO2 04/01/17 16:10 79 04/01/17 15:54 90 18 133/83 100 Nasal Cannula 4.0 04/01/17 15:45 100 Nasal Cannula 4.0 04/01/17 15:12 67 04/01/17 14:54 36.4 78 18 120/77 91 Room Air General Appearance: no apparent distress, + thin (and slightly anxious appearing) Head: normocephalic, atraumatic Eyes: normal inspection, PERRL, sclerae normal ENT: hearing grossly normal, pharynx normal Neck: trachea midline Respiratory/Chest: no respiratory distress, no accessory muscle use, + decreased breath sounds (at the right base), + crackles (at the bases bilaterally) Cardiovascular: no gallop, + systolic murmur (3 out of 6 heard best at the apex radiating into the axilla), + irregularly irregular (with a regular rate) Abdomen/GI: normal bowel sounds, non tender, soft, no organomegaly, no pulsatile mass, + hernia (right inguinal hernia that is easily reducible and nontender) Back: normal inspection, no muscle spasm Extremities/Musculoskelatal: + swelling (2+ pitting edema left greater than right (her left leg always swells more than her right as per the son), with 1+ dorsalis pedis pulses bilaterally, edema goes to the thighs bilaterally) Neurologic/Psych: alert, oriented x 3, + pertinent finding (anxious) Skin: warm/dry, + pertinent finding (mild erythema of the bilateral legs with ecchymosis scattered) Lymphatic: no adenopathy Diagnostics Laboratory Results Results Past 24 Hours Test 04/01/17 15:35 Range/Units White Blood Count 6.60 4.8-10.8 K/uL Red Blood Count 3.62 4.2-5.4 M/uL Hemoglobin 12.0 12.0-16.0 g/dL Hematocrit 37.7 37-47 % Mean Corpuscular Volume 104.1 80-100 fL Mean Corpuscular Hemoglobin 33.1 25-34 pg Mean Corpuscular Hemoglobin Concent 31.8 32-36 g/dl Platelet Count 171 130-400 K/uL Mean Platelet Volume 10.3 7.4-10.4 fL Neutrophils (%) (Auto) 69.6 % Lymphocytes (%) (Auto) 14.4 % Monocytes (%) (Auto) 13.5 % Eosinophils (%) (Auto) 2.0 % Basophils (%) (Auto) 0.2 % Neutrophils # (Auto) 4.60 1.4-6.5 K/uL Lymphocytes # (Auto) 0.95 1.2-3.4 K/uL Monocytes # (Auto) 0.89 0.11-0.59 K/uL Eosinophils # (Auto) 0.13 0-0.5 K/uL Basophils # (Auto) 0.01 0-0.2 K/uL RDW Standard Deviation 53.5 36.4-46.3 fL RDW Coefficient of Variation 14.1 11.5-14.5 % Immature Granulocyte % (Auto) 0.3 % Immature Granulocyte # (Auto) 0.02 0.00-0.02 K/uL Prothrombin Time 20.3 9.0-12.0 SECONDS Prothromb Time International Ratio 1.8 0.9-1.1 Sodium Level 143 136-145 mmol/L Potassium Level 4.5 3.5-5.1 mmol/L Chloride Level 104 98-107 mmol/L Carbon Dioxide Level 35 21-32 mmol/L Anion Gap 4.0 3-11 mmol/L Blood Urea Nitrogen 31 7-18 mg/dl Creatinine 1.20 0.60-1.20 mg/dl Est Creatinine Clear Calc Drug Dose 26.1 ml/min Estimated GFR () 47.1 Estimated GFR (Non- 40.6 BUN/Creatinine Ratio 25.9 10-20 Random Glucose 85 70-99 mg/dl Calcium Level 8.7 8.5-10.1 mg/dl Magnesium Level 2.6 1.8-2.4 mg/dl Total Bilirubin 0.6 0.2-1 mg/dl Aspartate Amino Transf (AST/SGOT) 36 15-37 U/L Alanine Aminotransferase (ALT/SGPT) 37 12-78 U/L Alkaline Phosphatase 78 45-117 U/L Troponin I 0.113 0-0.045 ng/ml Pro-B-Type Natriuretic Peptide 19739 0-1800 pg/ml Total Protein 6.1 6.4-8.2 gm/dl Albumin 3.2 3.4-5.0 gm/dl Globulin 2.9 2.5-4.0 gm/dl Albumin/Globulin Ratio 1.1 0.9-2 Diagnostic Radiology I personally reviewed the chest x-ray and agree with the radiology report as below: CHEST ONE VIEW PORTABLE CLINICAL HISTORY: Shortness of breath. Edema. COMPARISON STUDY: Chest radiograph March 06, 2017. FINDINGS: Endovascular aortoiliac stent graft is incidentally noted. Moderate cardiomegaly is unchanged. There is no pneumothorax. There is no radiographic evidence of pulmonary edema. A moderate right pleural effusion has slightly decreased since prior exam of March 06, 2017. IMPRESSION: 1. Slight decrease in size of a moderate right pleural effusion since exam of March 06, 2017. No evidence of pulmonary edema. 2. Stable cardiomegaly. EKG Atrial fibrillation with significant Right axis deviation Septal infarct , age undetermined T wave abnormality, consider inferior ischemia Abnormal ECG When compared with ECG of 06-MAR-2017 15:01, Inverted T waves have replaced nonspecific T wave abnormality in Anterior leads Impression Assessment and Plan This patient is an 86-year-old female with a history of COPD, chronic respiratory failure, atrial fibrillation on Coumadin, chronic diastolic CHF, severe peripheral arterial disease, pulmonary hypertension, prediabetes, hyperlipidemia, hypertension, and moderate mitral valve regurgitation, who presents to the ER with progressively worsening shortness of breath and lower extremity edema over the last several days. Her legs really got much more edematous in the last 24 hours as per her son. They have a pulse ox at home and normally she reads 98% on 3 L, however this morning she was 93% and her son increased her to 4 L prior to bringing her to the ER. She was recently discharged from the hospital 3 weeks ago for acute on chronic hypoxemic respiratory failure as a result of a COPD exacerbation and CHF exacerbation. At that time, she was increased from when necessary Lasix to taking Lasix 20 mg once daily, and her diltiazem was discontinued. She does report that she's continues to add salt to her foods, but her son reports she barely drinks any fluids at all. She does not weigh herself daily. Her pro BNP was significantly elevated at 11,000, her troponin was mildly elevated at 0.113, and her chest x-ray was consistent with signs of acute CHF with a right-sided pleural effusion which was actually improved from previous. She was given Lasix 40 mg IV 1 in the ER as well as an aspirin because of her positive troponin, however she denied any chest pain. She is quite anxious and has been having panic attacks and what sounds like paroxysmal nocturnal dyspnea for the last 1-2 nights. She will be admitted to the telemetry unit for acute on chronic diastolic CHF with acute on chronic hypoxemic respiratory failure. Acute on chronic Diastolic heart failure, acute on chronic hypoxemic respiratory failure-most likely secondary to poor compliance with low sodium diet. Would benefit from CHF education. Troponin mildly elevated at 0.113, pro BNP significantly elevated at 11,000, ECG without definite ischemic changes. Likely demand ischemia, does not have any chest pain. Right-sided pleural effusion is actually slightly improved from previous. - Echo (November 2016) - low normal EF of 50-55% and diastolic dysfunction with moderate mitral valve regurgitation -Continue Lasix 20 mg IV twice a day and replace potassium -Strict I's and O's and daily weights -Cardiology consultation appreciated -Trend troponins and repeat ECG in the morning Chronic Atrial Fibrillation: At her diltiazem stopped last admission due to bradycardia. Is on Coumadin for anticoagulation, stable here -Continue metoprolol, Coumadin at higher dose -Follow INR -Appreciate cardiology consultation COPD, chronic respiratory failure, pulmonary hypertension-no issues at this time , suspect acute hypoxemic respiratory failure secondary to acute CHF -Albuterol nebulizers when necessary Severe peripheral arterial disease (h/o AAA repair and iliac stent), hyperlipidemia, hypertension, and moderate mitral valve regurgitation-stable -Continue statin, aspirin Prediabetes-stable, not on medications CKD Stage II-III: Creatinine here was 1.2 -Avoid nephrotoxins -Renally dose all medications. Generalized anxiety disorder, anxiety related to medical condition-was placed on alprazolam last admission. I feel that she needs an SSRI and avoidance of benzodiazepines if possible -Patient is agreeable to start Zoloft 25 mg once daily -Continue alprazolam when necessary Code Status: FULL CODE DVT prophylaxis: Coumadin increased dose for today as INR is subtherapeutic Disposition:to home when stable Level of Care Telemetry Resuscitation Status FULL RESUSCITATION VTE Prophylaxis Given or contraindicated: Enoxaparin (Lovenox)SQ Additional Copies To Nathaniel Gomez M.D.
[2017-04-01 18:38] VITALS: BP 146/90; PULSE 81; TEMP 36.2; O2SAT 90
[2017-04-01 20:00] VITALS: O2SAT 90
[2017-04-01] MEDS ORDERED: WARFARIN SOD 4 MG TAB PO SCH (20:00)
[2017-04-01] MEDS: METOPROLOL TARTRATE 100 MG TAB PO SCH (20:58)
[2017-04-01] MEDS: ATORVASTATIN 20 MG TAB PO SCH (20:59)
[2017-04-01] MEDS: CALCIUM CARBONATE 1250MG TAB PO SCH (20:59)
[2017-04-01] MEDS: ENOXAPARIN 30 MG/0.3 ML SYR SC SCH (21:01)
[2017-04-02] VITALS (11 sets, daily range): BP systolic 124–143; BP diastolic 74–90; PULSE 78–90; TEMP 36.4–36.9; O2SAT 94–100
[2017-04-02 00:25] LABS: CKMB/CK RATIO 4.8 (0-3.0)
[2017-04-02] MEDS: MULTIVITAMIN TAB PO SCH (07:15)
[2017-04-02] MEDS: SERTRALINE HCL 50 MG TAB PO SCH (07:15)
[2017-04-02] MEDS: CALCIUM CARBONATE 1250MG TAB PO SCH ×2 (07:15→20:13)
[2017-04-02] MEDS: ASPIRIN 81 MG ECTAB PO SCH (07:15)
[2017-04-02] MEDS: METOPROLOL TARTRATE 100 MG TAB PO SCH ×2 (07:15→20:14)
[2017-04-02] MEDS: POTASSIUM CHLORIDE 20 MEQ TABCR PO SCH (07:15)
[2017-04-02 08:22] LABS: BASO % 0.4 %; BASO ABS # 0.02 K/uL (0-0.2); COMPLETE YES; EOS % 3.6 %; HEMATOCRIT 40.4 % (37-47); IG% 0.2 %; LYMPH % 17.1 %; LYMPH ABS # 0.96 K/uL (1.2-3.4); MEAN CELL VOLUME 105.8 fL (80-100); MEAN CORPUSCULAR HEMOGLOBIN 33.2 pg (25-34); MEAN CORPUSCULAR HGB CONC 31.4 g/dl (32-36); MEAN PLATELET VOLUME 10.6 fL (7.4-10.4); MONO % 14.7 %; PLATELET COUNT 157 K/uL (130-400); RED BLOOD COUNT 3.82 M/uL (4.2-5.4); WHITE BLOOD COUNT 5.63 K/uL (4.8-10.8)
[2017-04-02 08:28] LABS: INR 2.1 (0.9-1.1); PROTHROMBIN TIME (PATIENT) 23.2 SECONDS (9.0-12.0)
[2017-04-02] MEDS: FUROSEMIDE INJ 20 MG in SYRINGE 0 ML IV SCH ×2 (08:52→16:51)
[2017-04-02 08:54] LABS: BUN/CREATININE RATIO 26.3 (10-20); CALCIUM 9.1 mg/dl (8.5-10.1); CREATININE 1.1 mg/dl (0.60-1.20)
[2017-04-02 09:02] LABS: CKMB/CK RATIO 4.2 (0-3.0)
--- NOTE | 2017-04-02 09:36 | DIAGNOSTIC IMAGING REPORT ---
CHEST 2 VIEWS ROUTINE CLINICAL HISTORY: Pleural effusions COMPARISON STUDY: 03/30/2017 FINDINGS: The heart remains enlarged. There is enlargement central pulmonary arteries suggesting pulmonary arterial hypertension. There is aortic tortuosity. There is a small moderate right pleural effusion similar to the prior study. There is a trace left pleural effusion. 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 An abdominal aortic stent is visualized. IMPRESSION: 1. Stable cardiomegaly 2. Stable right pleural effusion with associated right basilar atelectasis/consolidation 3. Trace left pleural effusion Electronically signed by: Johan Rollins M.D. 04/02/2017 9:35 AM Dictated Date/Time: 04/02/2017 9:33 AM
--- NOTE | 2017-04-02 10:59 | Hospitalist Progress Note ---
Hospitalist Progress Note Date of Service Apr 02, 2017. Subjective Pt evaluation today including: conversation w/ patient, conversation w/ family , physical exam, chart review, lab review, review of studies Patient feeling better decreased shortness of breath less edema in her lower extremities All Other Systems: Reviewed and Negative Medications Medications (Trade) Dose Ordered Sig/Arjun Route Start Time Stop Time Status Last Admin Dose Admin Furosemide (Lasix Inj) 40 mg NOW STAT IV 04/01/17 16:30 04/01/17 16:31 DC 04/01/17 16:39 40 MG Aspirin/Aluminum/ Magnesium/Ca Carb (Ascriptin Tab) 325 mg NOW STAT PO 04/01/17 16:30 04/01/17 16:31 DC 04/01/17 16:30 325 MG Enoxaparin Sodium (Lovenox Inj) 30 mg HS SC 04/01/17 21:00 05/01/17 20:59 04/01/17 21:01 30 MG Furosemide 20 mg/ Syringe 2 ml @ 4 mls/min BID17 IV 04/02/17 09:00 05/02/17 08:59 04/02/17 08:52 4 MLS/MIN Alprazolam (Xanax Tab) 0.5 mg HS PRN PO 04/01/17 18:00 05/01/17 17:59 04/01/17 19:27 0.5 MG Aspirin (Ecotrin Tab) 81 mg QAM PO 04/02/17 09:00 05/02/17 08:59 04/02/17 07:15 81 MG Atorvastatin Calcium (Lipitor Tab) 20 mg HS PO 04/01/17 21:00 05/01/17 20:59 04/01/17 20:59 20 MG Metoprolol Tartrate (Lopressor Tab) 100 mg BID PO 04/01/17 21:00 05/01/17 20:59 04/02/17 07:15 100 MG Multivitamins (Multivitamin Tab) 1 tab DAILY PO 04/02/17 09:00 05/02/17 08:59 04/02/17 07:15 1 TAB Potassium Chloride (Klor-Con Tab) 20 meq DAILY PO 04/02/17 09:00 05/02/17 08:59 04/02/17 07:15 20 MEQ Calcium Carbonate (oS-Latrell 500 TAB) 1,250 mg BID PO 04/01/17 21:00 05/01/17 20:59 04/02/17 07:15 1,250 MG Warfarin Sodium (Coumadin Tab) 4 mg TODAY@2000 PO 04/01/17 20:00 04/01/17 20:01 DC 04/01/17 20:58 4 MG Sertraline HCl (Zoloft Tab) 25 mg QAM PO 04/02/17 09:00 05/02/17 08:59 04/02/17 07:15 25 MG Objective Vital Signs Date Time Temp Pulse Resp B/P (MAP) Pulse Ox O2 Delivery O2 Flow Rate FiO2 04/02/17 08:06 94 Room Air 3.0 04/02/17 07:33 36.5 78 18 129/74 (92) 94 04/02/17 04:00 Room Air 04/02/17 03:07 36.4 78 20 131/90 (104) 98 Nasal Cannula 3.0 04/02/17 00:00 36.9 85 18 143/82 (102) 99 Nasal Cannula 3.0 04/02/17 00:00 99 Room Air 04/01/17 20:00 90 Room Air 04/01/17 18:38 36.2 81 18 146/90 (108) 90 Nasal Cannula 5.0 04/01/17 17:56 90 18 142/96 97 Nasal Cannula 4.0 04/01/17 17:00 100 Nasal Cannula 4.0 04/01/17 16:10 79 04/01/17 15:54 90 18 133/83 100 Nasal Cannula 4.0 04/01/17 15:45 100 Nasal Cannula 4.0 04/01/17 15:12 67 04/01/17 14:54 36.4 78 18 120/77 91 Room Air Physical Exam General Appearance: no apparent distress ENT: hearing grossly normal Neck: trachea midline Respiratory/Chest: lungs clear, + decreased breath sounds (breath sounds diminished on the right) Cardiovascular: regular rate, rhythm Abdomen: normal bowel sounds Extremities: non-tender, + swelling (trace pedal edema) Laboratory Results Last 24 Hours Test 04/01/17 15:35 04/01/17 19:26 04/01/17 23:47 04/02/17 07:40 White Blood Count 6.60 K/uL 5.63 K/uL Red Blood Count 3.62 M/uL 3.82 M/uL Hemoglobin 12.0 g/dL 12.7 g/dL Hematocrit 37.7 % 40.4 % Mean Corpuscular Volume 104.1 fL 105.8 fL Mean Corpuscular Hemoglobin 33.1 pg 33.2 pg Mean Corpuscular Hemoglobin Concent 31.8 g/dl 31.4 g/dl Platelet Count 171 K/uL 157 K/uL Mean Platelet Volume 10.3 fL 10.6 fL Neutrophils (%) (Auto) 69.6 % 64.0 % Lymphocytes (%) (Auto) 14.4 % 17.1 % Monocytes (%) (Auto) 13.5 % 14.7 % Eosinophils (%) (Auto) 2.0 % 3.6 % Basophils (%) (Auto) 0.2 % 0.4 % Neutrophils # (Auto) 4.60 K/uL 3.61 K/uL Lymphocytes # (Auto) 0.95 K/uL 0.96 K/uL Monocytes # (Auto) 0.89 K/uL 0.83 K/uL Eosinophils # (Auto) 0.13 K/uL 0.20 K/uL Basophils # (Auto) 0.01 K/uL 0.02 K/uL RDW Standard Deviation 53.5 fL 55.1 fL RDW Coefficient of Variation 14.1 % 14.4 % Immature Granulocyte % (Auto) 0.3 % 0.2 % Immature Granulocyte # (Auto) 0.02 K/uL 0.01 K/uL Prothrombin Time 20.3 SECONDS 23.2 SECONDS Prothromb Time International Ratio 1.8 2.1 Sodium Level 143 mmol/L 142 mmol/L Potassium Level 4.5 mmol/L 4.0 mmol/L Chloride Level 104 mmol/L 103 mmol/L Carbon Dioxide Level 35 mmol/L 36 mmol/L Anion Gap 4.0 mmol/L 3.0 mmol/L Blood Urea Nitrogen 31 mg/dl 29 mg/dl Creatinine 1.20 mg/dl 1.10 mg/dl Est Creatinine Clear Calc Drug Dose 26.1 ml/min 27.5 ml/min Estimated GFR () 47.1 52.3 Estimated GFR (Non- 40.6 45.1 BUN/Creatinine Ratio 25.9 26.3 Random Glucose 85 mg/dl 91 mg/dl Calcium Level 8.7 mg/dl 9.1 mg/dl Magnesium Level 2.6 mg/dl 2.3 mg/dl Total Bilirubin 0.6 mg/dl Aspartate Amino Transf (AST/SGOT) 36 U/L Alanine Aminotransferase (ALT/SGPT) 37 U/L Alkaline Phosphatase 78 U/L Troponin I 0.113 ng/ml 0.108 ng/ml 0.145 ng/ml Pro-B-Type Natriuretic Peptide 46718 pg/ml Total Protein 6.1 gm/dl Albumin 3.2 gm/dl Globulin 2.9 gm/dl Albumin/Globulin Ratio 1.1 Thyroid Stimulating Hormone (TSH) 1.540 uIu/ml Vitamin B12 Level 805 pg/mL Folate > 24.00 ng/mL Total Creatine Kinase 33 U/L 31 U/L Creatine Kinase MB 1.6 ng/ml 1.3 ng/ml Creatine Kinase MB Ratio 4.8 4.2 Assessment and Plan 1. Acute on chronic Diastolic heart failure, acute on chronic hypoxemic respiratory failure-most likely secondary to poor compliance with low sodium diet. Would benefit from CHF education. Troponin mildly elevated at 0.113, pro BNP significantly elevated at 11,000, ECG without definite ischemic changes. Likely demand ischemia, does not have any chest pain. Right-sided pleural effusion is actually slightly improved from previous. - Echo (November 2016) - low normal EF of 50-55% and diastolic dysfunction with moderate mitral valve regurgitation -Continue Lasix 20 mg IV twice a day and replace potassium -Strict I's and O's and daily weights -Cardiology consultation appreciated Patient responding well to IV Lasix she was 45 kg in November continue IV diuresis. Patient presented and 51 kg down to 48 kg today. Discussed following her weight with the patient and son as an indication to adjust her Lasix as an outpatient. 2. Chronic Atrial Fibrillation: At her diltiazem stopped last admission due to bradycardia. Is on Coumadin for anticoagulation, stable here -Continue metoprolol, Coumadin at higher dose -Follow INR therapeutic today adjust daily as needed -Appreciate cardiology consultation 3. COPD, chronic respiratory failure, pulmonary hypertension-no issues at this time, suspect acute hypoxemic respiratory failure secondary to acute CHF -Albuterol nebulizers when necessary 4. Severe peripheral arterial disease (h/o AAA repair and iliac stent), hyperlipidemia, hypertension, and moderate mitral valve regurgitation-stable -Continue statin, aspirin 5. Prediabetes-stable, not on medications 6. CKD Stage II-III: Creatinine here was 1.2 -Avoid nephrotoxins -Renally dose all medications. 7. Generalized anxiety disorder, anxiety related to medical condition-was placed on alprazolam last admission. I feel that she needs an SSRI and avoidance of benzodiazepines if possible -Patient is agreeable to start Zoloft 25 mg once daily -Continue alprazolam when necessary 8. Code Status: FULL CODE discussed advanced care planning with the patient and her son. She has a living will and her other son is power of senior trial attorney. Her son believes that her living well states that she would not want to be resuscitated. I took the opportunity to review her wishes and to explain resuscitation to the patient and her son. If she decides that she does not want to be resuscitated, and months with her living will states then her CODE STATUS should be to not resuscitate, and she should inform the admitting doctor when she is admitted. The patient and her son will discuss her wishes. CODE STATUS will remain full. 9. DVT prophylaxis: Coumadin increased dose for today as INR is subtherapeutic Disposition:to home when stable Discharge planning: home with home health
--- NOTE | 2017-04-02 12:51 | CARDIOLOGY CONSULTATION ---
DATE OF CONSULTATION: 04/02/2017 DATE OF CONSULTATION: 04/02/2017. PERTINENT HISTORY: Mrs. Kapoor is an 86-year-old white female well known to me from the outpatient setting. The patient was admitted yesterday with an exacerbation of her diastolic congestive heart failure. This consultation was ordered to assist in her management. The patient was in her usual state of health until approximately 2 days prior to admission when she began to note progressive exertional dyspnea and increase in her lower extremity edema. The patient admits compliance with her diuretic therapy, however, continues to use salt on foods. She was hospitalized here from 03/06/2017 through 03/10/2017 with respiratory failure from a complication of her COPD and CHF. She admits to noncompliance with her diuretic and salt during that hospitalization. The patient has a longstanding history of chronic diastolic congestive heart failure. She did have a cardiac catheterization performed in September 2008 which showed evidence of coronary calcifications, but no obstructive disease. She also carries a history of permanent atrial fibrillation and has tolerated rate control and long-term anticoagulation without difficulty. Currently, the patient is resting comfortably in bed without complaints. She has not experienced recent PND or orthopnea. PAST MEDICAL HISTORY: 1. Nonobstructive coronary artery disease - September 2008. 2. Chronic diastolic congestive heart failure. 3. Hypertension. 4. Hypercholesterolemia. 5. Permanent atrial fibrillation. 6. Peripheral vascular disease. 7. AAA repair -- endovascular - October 2008. 8. Iliac stenting -- October 2008. 9. Pulmonary hypertension. 10. Moderate mitral regurgitation - September 2016. 11. Moderate to severe tricuspid regurgitation -- November 2016. 12. Chronic obstructive pulmonary disease -- chronic oxygen therapy. 13. Chronic renal failure. 14. Hyperglycemia. 15. Hysterectomy. 16. Anxiety. 17. Gout. ALLERGIES: PENICILLIN. MEDICATIONS: 1. Metoprolol tartrate 100 mg b.i.d. 2. Lasix 20 mg IV b.i.d. 3. Aspirin 81 mg per day. 4. Potassium 20 mEq daily. 5. Lovenox 30 mg subQ daily. 6. Lipitor 20 mg at bedtime. 7. Coumadin 4 mg daily. 8. Os-Latrell 1250 mg b.i.d. 9. Multivitamin 1 daily. SOCIAL HISTORY: The patient is a and lives alone. Does not use tobacco or alcohol. FAMILY HISTORY: Noncontributory. REVIEW OF SYSTEMS: A 10-point review of systems was negative except for that described above. PHYSICAL EXAMINATION: GENERAL: This is a thin elderly white female seated in the bedside chair without complaints. VITAL SIGNS: Blood pressure is 130/74 with a regular pulse of 78. Respiratory rate is 18. The patient is afebrile at 36.5 degrees Celsius. Saturations 94% on room air. HEAD, EYES, EARS, NOSE, AND THROAT: Negative. NECK: Supple with full carotid upstrokes. No obvious bruits. Jugular venous pressure is 8 cm of water at 90 degrees. CARDIOVASCULAR EXAMINATION: Reveals a regular irregular rhythm with distant heart sounds. A 2/6 systolic murmur is heard along the left sternal border. No S3. LUNGS: Note decreased breath sounds at the bases. ABDOMEN: Soft, nontender without bruits. EXTREMITIES: Reveal intact radial artery pulses bilaterally. Trace to 1+ pretibial edema is noted. LABORATORY DATA: CBC notes hemoglobin 12.7, hematocrit 40.4, white count 5.6, platelet count 157,000. Electrolytes note a sodium of 143, potassium 4.5, chloride 104, bicarbonate 35, BUN 31, creatinine 1.2, glucose 85. Magnesium level is 2.6. Initial troponin was 0.113 with a follow-up value of 0.108. CK is 33 with an MB fraction 1.6. BNP is elevated at 11,222. INR is therapeutic at 2.1. Initial EKG notes that atrial fibrillation with a right axis deviation, and old anteroseptal myocardial infarction, and inferior T-wave abnormality. EKG done this morning notes atrial fibrillation and poor R-wave progression across the anterior precordium. Chest x-ray notes cardiomegaly and right-sided pleural effusion. No obvious failure. IMPRESSION: Mrs. Kapoor was admitted with exacerbation of her chronic diastolic congestive heart failure. It is likely secondary to noncompliance with a low salt diet. She also previously admitted to noncompliance with her Lasix. She has been educated several times in the outpatient setting regarding daily weights and sliding scale diuretics. Unfortunately, her understanding seems to be lacking. PLAN: 1. Agree with intravenous diuretics. 2. Continue all other cardiac medications. 3. Further recommendations depending on her clinical course.
[2017-04-02] MEDS ORDERED: WARFARIN SOD 4 MG TAB PO SCH (16:00)
[2017-04-02] MEDS ORDERED: NURSING VERBAL MED ORDER ONE (19:00)
[2017-04-02] MEDS: ALPRAZOLAM 0.5 MG TAB PO PRN (20:12)
[2017-04-02] MEDS: ATORVASTATIN 20 MG TAB PO SCH (20:13)
[2017-04-02] MEDS: ENOXAPARIN 30 MG/0.3 ML SYR SC SCH (20:14)
[2017-04-03] VITALS (8 sets, daily range): BP systolic 129–142; BP diastolic 64–85; PULSE 71–90; TEMP 36.4–36.8; O2SAT 94–100
[2017-04-03 05:52] LABS: HEMATOCRIT 40.6 % (37-47); MEAN CELL VOLUME 107.4 fL (80-100); MEAN CORPUSCULAR HEMOGLOBIN 31.7 pg (25-34); MEAN CORPUSCULAR HGB CONC 29.6 g/dl (32-36); MEAN PLATELET VOLUME 10.6 fL (7.4-10.4); PLATELET COUNT 145 K/uL (130-400); RED BLOOD COUNT 3.78 M/uL (4.2-5.4); WHITE BLOOD COUNT 5.37 K/uL (4.8-10.8)
[2017-04-03 05:58] LABS: INR 2.9 (0.9-1.1); PROTHROMBIN TIME (PATIENT) 32.8 SECONDS (9.0-12.0)
[2017-04-03 06:23] LABS: BUN/CREATININE RATIO 32.7 (10-20)
[2017-04-03] MEDS: ASPIRIN 81 MG ECTAB PO SCH (06:49)
[2017-04-03] MEDS: POTASSIUM CHLORIDE 20 MEQ TABCR PO SCH (06:49)
[2017-04-03] MEDS: SERTRALINE HCL 50 MG TAB PO SCH (06:50)
[2017-04-03] MEDS: MULTIVITAMIN TAB PO SCH (06:50)
[2017-04-03] MEDS: CALCIUM CARBONATE 1250MG TAB PO SCH ×2 (06:50→20:28)
[2017-04-03] MEDS: METOPROLOL TARTRATE 100 MG TAB PO SCH ×2 (06:50→20:32)
[2017-04-03] MEDS: FUROSEMIDE INJ 20 MG in SYRINGE 0 ML IV SCH (07:58)
--- NOTE | 2017-04-03 09:52 | CARDIOLOGY PROGRESS NOTE ---
DATE: 04/03/2017 SUBJECTIVE: Mrs. Kapoor is resting comfortably at the bedside without complaints of chest pain or dyspnea. OBJECTIVE: VITAL SIGNS: Blood pressure is 138/83 with an irregular pulse of 75. Respiratory rate is 18 and the patient is afebrile at 36.4 degrees Celsius. Saturation is 94% on 3 liters nasal cannula. NECK: Supple with full carotid upstrokes. No obvious bruits. Jugular venous pressure is 8 cm of water at 90 degrees. CARDIOVASCULAR: Reveals an irregularly irregular rhythm with distant heart sounds. A 2/6 systolic murmur is heard along the sternal border. No S3. LUNGS: Note decreased breath sounds at the bases, but no rales, rhonchi, or wheezes. ABDOMEN: Soft without bruits. EXTREMITIES: Reveal intact radial artery pulses bilaterally. Trace to 1+ pretibial edema is noted. LABORATORY DATA: CBC notes hemoglobin of 12.0, hematocrit 40.6, white count 5.6, and platelet count 145,000. Electrolytes note a sodium of 144, potassium 4.0, chloride 104, bicarbonate 35, BUN 33, creatinine 1.0, and glucose 76. INR is 2.9. insurance collector notes atrial fibrillation with a controlled ventricular response. EKG this morning notes atrial fibrillation with a PVC or aberrant beat. There is a nonspecific T-wave abnormality and poor progression of the R wave across the anterior precordium. IMPRESSION AND PLAN: 1. Acute on chronic diastolic congestive heart failure - the patient is improving clinically with use of intravenous diuretics. Would continue conservative medical care. 2. Nonobstructive coronary artery disease -- at time of cardiac catheterization in September 2008. 3. Hypertension -- controlled. 4. Hypercholesterolemia. 5. Permanent atrial fibrillation -- INR therapeutic today. 6. Peripheral vascular disease -- status post endovascular AAA repair and iliac stenting in October 2008. 7. Moderate mitral regurgitation. 8. Moderate to severe tricuspid regurgitation. 9. Chronic obstructive pulmonary disease. 10. Chronic renal failure.
--- NOTE | 2017-04-03 13:24 | Hospitalist Progress Note ---
Hospitalist Progress Note Date of Service Apr 03, 2017. (Lauren Cross ., ADRIANA-C) Subjective Pt evaluation today including: conversation w/ patient, conversation w/ family (son at bedside), physical exam, chart review, lab review, conversation w/ eyewear consultant (spoke with Dr. Rodriges), review of inpatient medication list Pain: None PO Intake: Tolerating PO diet Voiding: no voiding problems Patient reports feeling better today. She states that she still has some shortness of breath but that it is improved from yesterday. She does complain of weakness and fatigue. She is tolerating a PO diet and voiding without difficulties. The patient denies fevers, chills, sweats, chest pain, palpitations, claudication, cough, wheezing, nausea, vomiting, abdominal pain, dysuria, hematuria, urinary retention, paralysis, motor weakness, numbness and tingling. Additional Comments: See HPI for pertinent positives and negatives. All other systems reviewed and negative. (Lauren Cross ., ADRIANA-C) Objective Vital Signs Date Time Temp Pulse Resp B/P (MAP) Pulse Ox O2 Delivery O2 Flow Rate FiO2 04/03/17 12:04 94 Nasal Cannula 3.0 04/03/17 11:02 36.5 71 18 137/84 (101) 100 4.0 04/03/17 08:04 94 Nasal Cannula 3.0 04/03/17 07:22 36.4 77 18 138/83 (101) 100 4.0 04/03/17 04:00 Nasal Cannula 3.0 04/03/17 03:30 36.8 85 18 129/85 (100) 99 Nasal Cannula 3.0 04/03/17 00:00 Nasal Cannula 3.0 04/02/17 22:50 36.4 90 18 133/84 (100) 100 Nasal Cannula 4.0 04/02/17 20:23 36.4 84 18 135/85 (102) 100 Nasal Cannula 4.0 04/02/17 20:00 99 Room Air 04/02/17 16:34 94 Nasal Cannula 3.0 04/02/17 15:25 89 18 124/82 (96) 94 Nasal Cannula 4.0 (Lauren Cross ., ADRIANA-C) Physical Exam Notes: General appearance: Well-developed, well-nourished, no apparent distress Head: Normocephalic, atraumatic Eyes: Normal inspection, PERRL, EOMI ENT: Normal ENT inspection, hearing grossly normal, pharynx normal Neck: Supple, no JVD, trachea midline Respiratory/Chest: +Decreased breath sounds in bases. Lungs clear to auscultation, normal breath sounds, no respiratory distress Cardiovascular: +Irregularly irregular, rate controlled. No gallop, no murmur Abdomen/GI: Normal bowel sounds, non-tender, soft Extremities/Musculoskeletal: +1 pitting edema. Normal inspection, no calf tenderness Neurological/Psych: Alert, normal mood/affect, oriented x 3 Skin: Normal color, warm/dry, no rash (Lauren Cross ., PA-C) Laboratory Results Last 24 Hours Test 04/03/17 05:15 04/03/17 09:14 White Blood Count 5.37 K/uL Red Blood Count 3.78 M/uL Hemoglobin 12.0 g/dL Hematocrit 40.6 % Mean Corpuscular Volume 107.4 fL Mean Corpuscular Hemoglobin 31.7 pg Mean Corpuscular Hemoglobin Concent 29.6 g/dl RDW Standard Deviation 55.9 fL RDW Coefficient of Variation 14.2 % Platelet Count 145 K/uL Mean Platelet Volume 10.6 fL Prothrombin Time 32.8 SECONDS Prothromb Time International Ratio 2.9 Sodium Level 144 mmol/L Potassium Level 4.0 mmol/L Chloride Level 104 mmol/L Carbon Dioxide Level 35 mmol/L Anion Gap 5.0 mmol/L Blood Urea Nitrogen 33 mg/dl Creatinine 1.00 mg/dl Est Creatinine Clear Calc Drug Dose 30.2 ml/min Estimated GFR () 58.7 Estimated GFR (Non- 50.6 BUN/Creatinine Ratio 32.7 Random Glucose 76 mg/dl Calcium Level 9.0 mg/dl Troponin I 0.136 ng/ml (Lauren Cross ., PA-C) Assessment and Plan 86-year-old female with a history of COPD, chronic respiratory failure, atrial fibrillation on Coumadin, chronic diastolic CHF, severe peripheral arterial disease, pulmonary hypertension, prediabetes, hyperlipidemia, hypertension, and moderate mitral valve regurgitation, who presents to the ED with progressive shortness of breath and lower extremity edema over the last several days. Acute on chronic diastolic heart failure--improving -Admit to telemetry. No acute events overnight, pt remained in rate controlled a-fib with HR 70s-80s. Transfer to med/surg 04/03 -UO 1275 cc, net balance -715 cc on 04/02 -D/C IV Lasix -Cardiology consulted, pt follows with Dr. Rodriges. Appreciate recs: spoke with Dr. Rodriges on the phone and will resume pt's home dose of oral Lasix -Lasix 20 mg PO qd -Spoke with pt and son who manages her meds about sodium/fluid restriction, taking daily weights, and taking extra Lasix prn weight gain. Verbalized understanding & agreement. Son mentioned that the prescription for Lasix is usually only enough for 1 tablet a day, so on discharge will renew script with extra doses. -Strict I's and O's and daily weights - Echo (November 2016) - low normal EF of 50-55% and diastolic dysfunction with moderate mitral valve regurgitation Acute on chronic respiratory failure--resolved -Pt on 3L NC continuous at home -Son checks pulse ox daily and had to increase to 4L at home prior to arriving to ED -Pt now back to baseline oxygen needs Elevated troponin--stable -Upon previous lab review, troponin chronically elevated -Repeat troponin stable 04/03 Chronic Atrial Fibrillation--stable, rate controlled -Continue metoprolol tartrate 100 mg PO BID -INR 2.9 on 04/03. 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 Would benefit from SSRI and avoiding benzos when possible -Continue Zoloft 25 mg PO qd -Continue alprazolam when necessary DVT prophylaxis -Warfarin therapeutic Code Status -Level I, FULL RESUSCITATION STATUS (Lauren Cross ., PA-C) I agree with PA assessment and plan and have seen and examined pt myself Resting comfortably in bed Edema resolved Labs and vitals reviewed Will transition to PO lasix soon, instructed on sliding scale lasix Dr Rodriges following, appreciate recs (Elias Garcia D.O.)
[2017-04-03] MEDS: ALPRAZOLAM 0.5 MG TAB PO PRN (15:28)
[2017-04-03] MEDS ORDERED: WARFARIN SOD 3 MG TAB PO SCH (16:00)
[2017-04-03] MEDS: ATORVASTATIN 20 MG TAB PO SCH (20:28)
[2017-04-04 07:35] VITALS: BP 135/83; PULSE 86; TEMP 36.4; O2SAT 98
[2017-04-04] MEDS: POTASSIUM CHLORIDE 20 MEQ TABCR PO SCH (07:41)
[2017-04-04] MEDS: CALCIUM CARBONATE 1250MG TAB PO SCH (07:41)
[2017-04-04] MEDS: MULTIVITAMIN TAB PO SCH (07:41)
[2017-04-04] MEDS: SERTRALINE HCL 50 MG TAB PO SCH (07:41)
[2017-04-04] MEDS: ASPIRIN 81 MG ECTAB PO SCH (07:42)
[2017-04-04] MEDS: METOPROLOL TARTRATE 100 MG TAB PO SCH (07:42)
[2017-04-04 07:48] LABS: HEMATOCRIT 39.9 % (37-47); MEAN CELL VOLUME 107.3 fL (80-100); MEAN CORPUSCULAR HEMOGLOBIN 33.1 pg (25-34); MEAN CORPUSCULAR HGB CONC 30.8 g/dl (32-36); MEAN PLATELET VOLUME 9.9 fL (7.4-10.4); PLATELET COUNT 161 K/uL (130-400); RED BLOOD COUNT 3.72 M/uL (4.2-5.4); WHITE BLOOD COUNT 5.04 K/uL (4.8-10.8)
[2017-04-04 08:00] LABS: PROTHROMBIN TIME (PATIENT) 42.3 SECONDS (9.0-12.0)
[2017-04-04] MEDS ORDERED: FUROSEMIDE 20 MG TAB PO SCH (08:00)
[2017-04-04 08:15] LABS: INR 3.7 (0.9-1.1)
[2017-04-04 08:21] LABS: BUN/CREATININE RATIO 35.5 (10-20); CALCIUM 9.3 mg/dl (8.5-10.1); POTASSIUM 4.3 mmol/L (3.5-5.1)
--- NOTE | 2017-04-04 10:23 | CARDIOLOGY PROGRESS NOTE ---
DATE: 04/04/2017 DATE: 04/04/2017. SUBJECTIVE: Mrs. Kapoor is resting comfortably in bed without complaints of chest pain or dyspnea. She is anxious for hospital discharge. OBJECTIVE: VITAL SIGNS: Blood pressure 135/83 with a regular pulse of 86. Respiratory rate is 20. The patient is afebrile at 36.4 degrees Celsius. Saturations 90% on 3 liters nasal cannula. NECK: Supple with full carotid upstrokes. There are no carotid bruits. Jugular venous pressure is flat at 90 degrees. There is no thyromegaly. CARDIOVASCULAR EXAMINATION: Reveals an irregularly irregular rhythm with distant heart sounds. A 2/6 systolic murmur is heard along the left sternal border. No S3. LUNGS: Clear without rales, rhonchi, or wheezes. ABDOMEN: Soft, nontender without bruits. EXTREMITIES: Reveal intact radial artery pulses bilaterally. Trace to 1+ pretibial edema is noted. LABORATORY DATA: CBC notes a hemoglobin of 12.3, hematocrit 39.0, white count 5.0, platelet count 161,000. Electrolytes note a sodium of 143, potassium 4.3, chloride 103, bicarbonate 34, BUN 36, creatinine 1.0, glucose 63. INR is 3.7. IMPRESSION AND PLAN: 1. Acute on chronic diastolic congestive heart failure -- the patient is now back on her oral furosemide and compensated at this time. Will continue with conservative medical care. 2. Nonobstructive coronary artery disease -- cardiac catheterization September 2008. 3. Hypertension -- controlled. 4. Hypercholesterolemia. 5. Permanent atrial fibrillation -- continue Coumadin. 6. Peripheral vascular disease status post endovascular AAA repair and iliac stenting in October 2008. 7. Moderate mitral regurgitation. 8. Moderate severe tricuspid regurgitation. 9. Chronic obstructive pulmonary disease. 10. Chronic renal failure.
[2017-04-04] MEDS ORDERED: FURO-85 PO (11:22)
--- NOTE | 2017-04-04 11:34 | Discharge Instructions ---
Discharge Instructions Date of Service Apr 04, 2017. Admission Reason for Admission: Acute On Chronic Diastolic Congestive Heart Discharge Discharge Diagnosis / Problem: Acute on chronic diastolic congestive heart failure Discharge Goals Goal(s): Decrease discomfort, Improve function, Increase independence, Improve disease control, Learn about illness, Diagnostic testing, Prevent Disease Progression Activity Recommendations Activity Limitations: resume your previous activity Exercise/Sports Limitations: none . Instructions / Follow-Up Instructions / Follow-Up Patient to be discharged home Will continue on lasix 20 mg tablet once daily If weight gain of 1-2 lb weight gain in one day, can take extra dose of lasix Will need to follow up with Dr. Rodriges in 1-2 weeks If worsening weight gain, shortness of breath, chest pain, please report to ER Please restrict sodium diet to 2 grams total daily Current Hospital Diet Patient's current hospital diet: Low Sodium Diet (2gm Na), AHA Diet (Heart Healthy) Discharge Diet Recommended Diet: AHA Diet (Heart Healthy), Low Sodium Diet (2gm Na) Pending Studies Studies pending at discharge: no Medical Emergencies . Who to Call and When: Medical Emergencies: If at any time you feel your situation is an emergency, please call 911 immediately. . Non-Emergent Contact Non-Emergency issues call your: Primary Care Provider Call Non-Emergent contact if: your pain is worsening . . "Provider Documentation" section prepared by Elias Garcia. . VTE Core Measure Inpt VTE Proph given/why not?: Enoxaparin (Lovenox)SQ
[2017-04-04 12:00] VITALS: BP 135/83; PULSE 86; TEMP 36.4; O2SAT 98
--- NOTE | 2017-04-04 15:14 | Discharge Summary ---
Discharge Summary Date of Service Apr 04, 2017. Discharge Summary Admission Date: Apr 01, 2017 at 17:54 Discharge Date: Apr 04, 2017 Discharge Disposition: Home Principal Diagnosis: Acute on chronic diastolic heart failure Immunizations: Have You Had Influenza Vaccine: Yes History of Tetanus Vaccine?: Yes History of Pneumococcal: Yes Pneumococcal Date: Jun 11, 2010 History of Hepatitis B Vaccine: No Medication Reconciliation Continued Medications: Albuterol Hfa (Ventolin Hfa) 200 Puffs/[id number] Mcg Aers 1-2 PUFFS INH Q6H PRN for SOB/Wheezing, #1 INHALER Alprazolam (Xanax) 0.5 Mg Tab 0.5 MG PO HS Ascorbic Acid (Vitamin C) 500 Mg Tab 500 MG PO DAILY Aspirin (Aspirin Ec) 81 Mg Tab 81 MG PO QAM Atorvastatin (Lipitor) 20 Mg Tab 20 MG PO HS Calcium Carbonate (Calcium) 600 Mg Tab 600 MG PO BID Furosemide (Lasix) 20 Mg Tab 20 MG PO QAM, #30 TAB (This prescription has been renewed) Metoprolol Tartrate (Lopressor) (Lopressor) 100 Mg Tab 100 MG PO BID Multivitamin (Multivitamin) Tab 1 TAB PO DAILY, TAB Nitroglycerin (Nitrostat) 0.4 Mg Tab 0.4 MG UT PRN, BTL Potassium Ext Rel (Klor-Con) 20 Meq Tabcr 20 MEQ PO DAILY Warfarin Sodium (Coumadin) 3 Mg Tab 3 MG PO DAILY, TAB Discharge Exam Review of Systems: Constitutional: No fever, No chills, No sweats, No weakness, No fatigue ENT: No hearing loss, No unusual epistaxis, No nasal symptoms, No sore throat Respiratory: No cough, No sputum, No wheezing, No shortness of breath, No dyspnea on exertion, No dyspnea at rest Cardiovascular: No chest pain, No orthopnea, No PND, No edema Abdomen: No pain, No nausea, No vomiting, No diarrhea Musculoskeletal: No joint pain, No muscle pain, No swelling, No calf pain Genitourinary - Female: No dysuria, No urinary frequency, No urinary urgency , No urinary incontinence Neurologic: No memory loss, No paralysis, No weakness, No numbness/tingling Psychiatric: No depression symptoms, No anhedonism, No anxiety, No insomnia Integumentary: No rash, No itch Physical Exam: General Appearance: WD/WN, no apparent distress ENT: normal ENT inspection, hearing grossly normal, TMs normal, pharynx normal Neck: supple, no adenopathy, thyroid normal, no JVD Respiratory/Chest: chest non-tender, lungs clear, no accessory muscle use, + decreased breath sounds Cardiovascular: regular rate, rhythm, no edema, no gallop, no JVD Abdomen / GI: normal bowel sounds, non tender, soft, no organomegaly Neurologic/Psychiatric: alert, normal mood/affect, normal reflexes, oriented x 3 Hospital Course 86-year-old female with a history of COPD, chronic respiratory failure, atrial fibrillation on Coumadin, chronic diastolic CHF, severe peripheral arterial disease, pulmonary hypertension, prediabetes, hyperlipidemia, hypertension, and moderate mitral valve regurgitation, who presents to the ED with progressive shortness of breath and lower extremity edema over the last several days. Acute on chronic diastolic heart failure--resolved -Admit to telemetry. No acute events overnight, pt remained in rate controlled a-fib with HR 70s-80s. Transfer to med/surg 04/03 -Appropriate urine output -Coverted to PO lasix 20 mg PO daily -Cardiology consulted, pt follows with Dr. Rodriges. Appreciate recs: no changes at this time -Spoke with pt and son who manages her meds about sodium/fluid restriction, taking daily weights, and taking extra Lasix prn weight gain. Verbalized understanding & agreement. Son mentioned that the prescription for Lasix is usually only enough for 1 tablet a day, so on discharge will renew script with extra doses. -Strict I's and O's and daily weights - Echo (November 2016) - low normal EF of 50-55% and diastolic dysfunction with moderate mitral valve regurgitation Acute on chronic respiratory failure--resolved -Pt on 3L NC continuous at home -Son checks pulse ox daily and had to increase to 4L at home prior to arriving to ED -Pt now back to baseline oxygen needs Elevated troponin--stable -Upon previous lab review, troponin chronically elevated -Repeat troponin stable 04/03 Chronic Atrial Fibrillation--stable, rate controlled -Continue metoprolol tartrate 100 mg PO BID -INR elev at 3.7, instructed to hold coumadin and f/u with coag clinic COPD--stable -Albuterol nebulizers when necessary Severe peripheral arterial disease (h/o AAA repair and iliac stent), hyperlipidemia, hypertension, and moderate mitral valve regurgitation--stable -Continue ASA and atorvastatin 20 mg PO qd Prediabetes--stable, not on medications CKD Stage II-III--baseline creatinine less than 1 -Creatinine stable, at baseline Generalized anxiety disorder, anxiety related to medical condition--was placed on alprazolam last admission. Would benefit from SSRI and avoiding benzos when possible -Continue Zoloft 25 mg PO qd -Continue alprazolam when necessary DVT prophylaxis -Warfarin Code Status -Level I, FULL RESUSCITATION STATUS Total Time Spent: Greater than 30 minutes This includes examination of the patient, discharge planning, medication reconciliation, and communication with other providers. Discharge Instructions Please refer to the electronic Patient Visit Report (Discharge Instructions) for additional information. Additional Copies To Nathaniel Gomez M.D.
== END 2017-04-04 12:20 | disposition home health service (06) | DRG 291 ==
LOC: C.EDB 14:30 → C.2T 17:54 → ENRESERV 18:09 → C.4E 04-03 14:24
PROVIDERS: ADMIT Family Medicine; ATTEND Family Medicine
DX: I13.0 Hypertensive heart and chronic kidney disease with heart failure and stage 1 through stage 4 chronic kidney disease, or unspecified chronic kidney disease (principal); I50.33 Acute on chronic diastolic (congestive) heart failure; J96.20 Acute and chronic respiratory failure, unspecified whether with hypoxia or hypercapnia; I24.8 Other forms of acute ischemic heart disease; J44.9 Chronic obstructive pulmonary disease, unspecified; I48.2 Chronic atrial fibrillation; N18.3 Chronic kidney disease, stage 3 (moderate); M1A.9XX0 Chronic gout, unspecified, without tophus (tophi); Z79.01 Long term (current) use of anticoagulants; I73.9 Peripheral vascular disease, unspecified; I08.1 Rheumatic disorders of both mitral and tricuspid valves; I27.2 Other secondary pulmonary hypertension; R73.03 Prediabetes; Z88.0 Allergy status to penicillin; Z91.11 Patient's noncompliance with dietary regimen; F41.1 Generalized anxiety disorder